=== PATIENT | female | born 1950 | race Caucasian/White ===

== ENCOUNTER 2017-03-20 14:31 | Inpatient (IN) | payer OTHER ==
[~2017-03-20] VITALS: Ht 152.4 cm; Wt 73.9 kg
[~2017-03-20 14:31] MED LIST: ADV25050 INH; ALBU2.5V3 NEB; ATOR20TA38 PO; FURO-110 PO; LEVO50TA74 PO; LOSA100T47 PO; MONT10TA21 PO; MTF1000T PO; OMEP20CA9 PO; [UNRECOGNIZED DRUG - CODE] PO
[2017-03-20] MEDS ORDERED: ASPIRIN 81 MG TAB PO STA (14:41)
[2017-03-20] MEDS ORDERED: NITROGLYCERIN 2% 1 GM OINT PKT TD STA (14:41)
[2017-03-20] MEDS ORDERED: morphine 4 MG/ML VIAL IV STA (14:50)
[2017-03-20] MEDS ORDERED: ONDANSETRON 4 MG INJ IV STA (14:50)
[2017-03-20] MEDS ORDERED: NITROGLYCERIN (SL) 0.4 MG TAB SL PRN (15:00)
--- NOTE | 2017-03-20 15:17 | RADRPT ---
PROCEDURE: Chest x-ray CLINICAL INDICATION: Cough TECHNIQUE: Chest single view COMPARISON: None FINDINGS: There is mild cardiomegaly and atherosclerotic aortic calcification. Pulmonary vessels are normal in caliber. There is linear right perihilar and left lower lobe atelectasis. No confluent pneumonia se en. There is mild peribronchial thickening. Costophrenic angles sharp. Bony thorax is unremarkable. IMPRESSION: 1. Mild cardiomegaly and an sclerotic aortic calcification. 2. Linear right perihilar and left lower lobe atelectasis. 3. Mild peribronchial thickening suggesting bronchiolitis.. 4. Slight nodular appearance the left hilum likely secondary to reactive adenopathy. Follow-up ches t x-ray is recommended RPTAT: HH .Rad Morrison MD, Date Time Electronically viewed and signed by .Rad Morrison MD, on 03/20/2017 15:17 .W/
[2017-03-20 15:22] LABS: BASOPHIL # 0.1 10^3/ul (0.0-0.1); BASOPHILS % 0.5 % (0.0-2.0); EOSINOPHILS # 0.1 10^3/ul (0.0-0.5); EOSINOPHILS % 1.4 % (0.0-7.0); HEMATOCRIT 41.4 % (37.0-47.0); HEMOGLOBIN 13.8 g/dl (12.0-16.0); LYMPHOCYTES # 2.2 10^3/ul (0.8-2.9); LYMPHOCYTES % 23.3 % (15.0-51.0); MEAN CORPUSCULAR HEMOGLOBIN 28.2 pg (29.0-33.0); MEAN CORPUSCULAR HGB CONC 33.3 g/dl (32.0-37.0); MEAN CORPUSCULAR VOLUME 84.7 fl (82.0-101.0); MEAN PLATELET VOLUME 11.1 fl (7.4-10.4); MONOCYTE # 0.6 10^3/ul (0.3-0.9); MONOCYTES % 6.4 % (0.0-11.0); NEUTROPHIL # 6.3 10^3/ul (1.6-7.5); NEUTROPHILS % 67.4 % (39.0-77.0); PLATELET COUNT 295 10^3/UL (140-415); RED BLOOD COUNT 4.89 10^6/ul (4.20-5.40); RED CELL DISTRIBUTION WIDTH 15.9 % (11.5-14.5); WHITE BLOOD COUNT 9.3 10^3/ul (4.8-10.8)
--- NOTE | 2017-03-20 15:37 | RADRPT ---
PROCEDURE: US Abdomen. CLINICAL INDICATION: abdominal pain TECHNIQUE: Multiple real-time images were acquired of the patient's right upper quadrant abdomen a nd retroperitoneum utilizing a high resolution transducer. COMPARISON: None FINDINGS: The liver demonstrates normal echogenicity. The liver is normal in size and no focal solid lesions are seen. The liver measures 14.4 cm in length. The portal vein is patent with normal direction of f low. No intrahepatic biliary dilatation is seen. No gallstones are identified within the gallbladder. There is no pericholecystic fluid or gallbladd er wall thickening. The common bile duct measures 5 mm in maximal dimension. The visualized portions of the pancreas are unremarkable. The tail of the pancreas is not seen. No free fluid is identified. The right kidney is normal in size, and demonstrate normal echogenicity and cortical thickness. The right kidney measures 9.5 cm in long dimension. There is no evidence of hydronephrosis. There are no kidney stones. RPTAT: AA IMPRESSION: Unremarkable right upper quadrant abdominal ultrasound. .Fidel Mary MD, Date Time Electronically viewed and signed by .Fidel Mary MD, MD on 03/20/2017 15:37 .S/
[2017-03-20 15:40] LABS: ANION GAP 14 (8-16); BLOOD UREA NITROGEN 17 mg/dl (7-20); CALCIUM 9.4 mg/dl (8.4-10.2); CARBON DIOXIDE 28 mmol/L (21-31); CHLORIDE 100 mmol/L (97-110); CREATININE 0.52 mg/dl (0.44-1.00); GLUCOSE 140 mg/dl (70-220); POTASSIUM 3.6 mmol/L (3.5-5.1); SODIUM 138 mmol/L (135-144)
[2017-03-20 15:52] LABS: TROPONIN-I < 0.012 ng/ml (0.00-0.12)
[2017-03-20 16:01] LABS: ALBUMIN 4.1 g/dl (3.3-4.9); BILIRUBIN,INDIRECT 0.4 mg/dl (0-1.1); BILIRUBIN,TOTAL 0.4 mg/dl (0.2-1.3); TOTAL PROTEIN 7.5 g/dl (6.1-8.1)
[2017-03-20] MEDS ORDERED: OMEP40CA6 PO (16:22)
[2017-03-20] MEDS ORDERED: ACETAMINOPHEN 325 MG TAB PO PRN (16:30)
[2017-03-20] MEDS ORDERED: ONDANSETRON 4 MG INJ IV PRN (16:30)
--- NOTE | 2017-03-20 16:43 | ERD ---
ER Documentation Chief Complaint Chief Complaint SOB cold like symptoms given 1 breathing tx by RA lungs clear at this time HPI Patient is a 58-year-old female with asthma, hypertension, and diabetes who presents with chest pain and shortness of breath. The cough has been there for about 2 weeks but the chest pain and shortness of breath started this morning. She had a heavy sensation in her left arm. She does use oxygen at home. He went to her primary doctor today who gave her breathing treatment and sent her to the emergency department. Upon review of old medical records this is the patient's first visit to the ER. ROS All systems reviewed and are negative except as per history of present illness. Medications Home Meds Reported Medications Omeprazole* (Omeprazole*) 40 Mg Capsule.dr, 40 MG PO DAILY, #30 CAP 03/20/17 Albuterol Sulfate* (Albuterol Sulfate* Neb) 0.083%-3 Ml Neb, 1.25 MG NEB Q3H Y for WHEEZING AND SOB, EA 08/18/14 Diltiazem Hcl* (Taztia XT*) 240 Mg Capsule.sa, 240 MG PO DAILY, CAP 08/18/14 Montelukast Sodium* (Singulair*) 10 Mg Tablet, 10 MG PO HS, TAB 08/18/14 Metformin* (Glucophage*) 1,000 Mg Tablet, 1000 MG PO WITH BREAKFAST DINNE, TAB 08/18/14 Losartan Potassium* (Cozaar*) 100 Mg Tablet, 100 MG PO DAILY, TAB 08/18/14 Levothyroxine Sodium* (Levothyroxine Sodium*) 50 Mcg Tablet, 50 MCG PO AC BREAKFAST, TAB 08/18/14 Furosemide* (Lasix*) 20 Mg Tablet, 20 MG PO DAILY, TAB 08/18/14 Salmeterol Xinaf/Fluticasone* (Advair*) 250-50 Diskus Inhaler, 1 INH INH BID, INH 08/18/14 Atorvastatin Calcium* (Atorvastatin Calcium*) 20 Mg Tablet, 20 MG PO HS, TAB 08/18/14 Discontinued Reported Medications Omeprazole* (Prilosec*) 20 Mg Capsule.dr, 20 MG PO DAILY, CAP 08/18/14 Allergies Allergies: Coded Allergies: Penicillins (Unverified Allergy, Unknown, rash, 03/20/17) amoxicillin (Unverified Allergy, Unknown, rash, 03/20/17) famotidine (Unverified Allergy, Unknown, rash, 03/20/17) PMhx/Soc History of Surgery: Yes (colon resection, hysterectomy, colostomy-reversal, rt lumpectomy breast) Anesthesia Reaction: No Hx Neurological Disorder: No Hx Respiratory Disorders: Yes (asthma) Hx Cardiac Disorders: Yes (irregular heartbeat, chf, "inflammation around the heart") Hx Psychiatric Problems: No Hx Miscellaneous Medical Probl: No Hx Alcohol Use: No Hx Substance Use: No Hx Tobacco Use: No FmHx Family History: coronary disease Physical Exam Vitals Vital Signs Date Time Temp Pulse Resp B/P Pulse Ox O2 Delivery O2 Flow Rate FiO2 03/20/17 16:22 Nasal Cannula 2 03/20/17 15:34 66 17 144/63 97 Nasal Cannula 2.0 03/20/17 14:40 97.5 78 20 221/89 99 Physical Exam Const: Mild distress Head: Atraumatic Eyes: Normal Conjunctiva ENT: Normal External Ears, Nose and Mouth. Neck: Full range of motion..~ No meningismus. Resp: Clear to auscultation bilaterally Cardio: Regular rate and rhythm, no murmurs Abd: Soft, non tender, non distended. Normal bowel sounds Skin: No petechiae or rashes Back: No midline or flank tenderness Ext: No cyanosis, or edema Neur: Awake and alert Psych: Normal Mood and Affect Result Diagram: 03/20/17 1441 03/20/17 1441 Results 24 hrs Laboratory Tests Test 03/20/17 14:41 White Blood Count 9.310^3/ul Red Blood Count 4.8910^6/ul Hemoglobin 13.8g/dl Hematocrit 41.4% Mean Corpuscular Volume 84.7fl Mean Corpuscular Hemoglobin 28.2pg Mean Corpuscular Hemoglobin Concent 33.3g/dl Red Cell Distribution Width 15.9% Platelet Count 35487^3/UL Mean Platelet Volume 11.1fl Neutrophils % 67.4% Lymphocytes % 23.3% Monocytes % 6.4% Eosinophils % 1.4% Basophils % 0.5% Nucleated Red Blood Cells % 0.0/100WBC Neutrophils # 6.310^3/ul Lymphocytes # 2.210^3/ul Monocytes # 0.610^3/ul Eosinophils # 0.110^3/ul Basophils # 0.110^3/ul Nucleated Red Blood Cells # 0.010^3/ul Sodium Level 138mmol/L Potassium Level 3.6mmol/L Chloride Level 100mmol/L Carbon Dioxide Level 28mmol/L Anion Gap 14 Blood Urea Nitrogen 17mg/dl Creatinine 0.52mg/dl Glucose Level 140mg/dl Calcium Level 9.4mg/dl Total Bilirubin 0.4mg/dl Direct Bilirubin 0.00mg/dl Indirect Bilirubin 0.4mg/dl Aspartate Amino Transf (AST/SGOT) 18IU/L Alanine Aminotransferase (ALT/SGPT) 34IU/L Alkaline Phosphatase 120IU/L Troponin I < 0.012ng/ml Total Protein 7.5g/dl Albumin 4.1g/dl Lipase 61U/L Current Medications Medications (Trade) Dose Ordered Sig/Cristobal Route PRN Reason Start Time Stop Time Status Last Admin Dose Admin Aspirin (Aspirin) 162 mg ONCE STAT PO 03/20/17 14:41 03/20/17 14:42 DC 03/20/17 15:29 Nitroglycerin (Nitroglycerin 2% Oint) 1 inch ONCE STAT TD 03/20/17 14:41 03/20/17 14:42 DC 03/20/17 15:30 Nitroglycerin (Nitroglycerin (Sl Tab) 0.4 Mg) 1 tab Q5M UP TO 3 DOSES PRN SL CHEST PAIN 03/20/17 15:00 Morphine Sulfate (morphine) 4 mg ONCE STAT IV 03/20/17 14:50 03/20/17 14:52 DC Ondansetron HCl (Zofran Inj) 4 mg ONCE STAT IV 03/20/17 14:50 03/20/17 14:52 DC Ondansetron HCl (Zofran Inj) 4 mg ER BRIDGE PRN IV NAUSEA AND/OR VOMITING 03/20/17 16:30 03/21/17 16:29 Acetaminophen (Tylenol Tab) 650 mg ER BRIDGE PRN PO MILD PAIN/FEVER 03/20/17 16:30 03/21/17 16:29 Procedures/MDM EKG read by me: Rate/Rhythm: Regular rate and rhythm at a normal rate Intervals: Normal Impression: No evidence of ischemia or arrhythmia Chest x-ray shows no pneumonia or pneumothorax per radiology. Ultrasound shows no gallbladder disease per radiology. Patient is a 66-year-old female with cardiac risk factors who presents with chest pain shortness of breath. I am concerned for potential acute coronary syndrome. I doubt pneumonia, pneumothorax, pulmonary embolism, or aortic dissection. The patient will be admitted to the care of Dr. Lin as she has [facility] physicians IPA and he is admitting for that IPA. The patient can get further workup while admitted to the telemetry unit. The patient was given aspirin and nitroglycerin as well as morphine empirically. Departure Diagnosis: Primary Impression: Chest pain Chest pain type: unspecified Qualified Code: R07.9 - Chest pain, unspecified type Additional Impression: Shortness of breath Condition: JEREMIAS Strong MD Mar 20, 2017 16:43
[2017-03-20 17:24] VITALS: TEMP 98.2
[2017-03-20 17:43] VITALS: PULSE 68
[2017-03-20 18:01] VITALS: BP 187/79; RESP 18
[2017-03-20] MEDS ORDERED: GLUCAGON 1 MG INJ IM PRN (19:30)
[2017-03-20] MEDS ORDERED: GLUCOSE GEL 15 GRAM TUBE PO PRN ×2 (19:30)
[2017-03-20] MEDS ORDERED: DEXTROSE 50% 50 ML SYRINGE IV PRN ×2 (19:30)
[2017-03-20] MEDS ORDERED: GLUCOSE GEL 15 GRAM TUBE BUCCAL PRN (19:30)
[2017-03-20 20:00] VITALS: BP 182/88; RESP 20
[2017-03-20 20:38] VITALS: PULSE 64
[2017-03-20 21:29] LABS: CREATINE KINASE 30 IU/L (23-200)
[2017-03-20] MEDS: ATORVASTATIN 20 MG TAB PO SCH (21:35)
[2017-03-20] MEDS: SALMETEROL/FLUTICASONE 250/50 INHA INH SCH (21:35)
[2017-03-20] MEDS: MONTELUKAST 10 MG TAB PO SCH (21:35)
[2017-03-20 21:53] LABS: TROPONIN-I < 0.012 ng/ml (0.00-0.12)
[2017-03-20 21:54] LABS: CK-MB 0.34 ng/ml (0.0-2.4)
[2017-03-20] MEDS: INSULIN ASPART [NOVOLOG] 3 ML PEN SC SCH (23:06)
[2017-03-21] VITALS (14 sets, daily range): BP systolic 123–187; BP diastolic 64–92; PULSE 63–73; RESP 20–22
[2017-03-21] MEDS: hydrALAzine 20 MG INJ IV PRN (00:48)
[2017-03-21] MEDS: ALBUTEROL 0.083% (NEB) 2.5 MG/3 ML AMP NEB PRN ×2 (01:05→13:54)
[2017-03-21] MEDS: ACCU-CHEK XX SCH (02:35)
[2017-03-21 03:36] LABS: BASOPHILS % 0.5 % (0.0-2.0); EOSINOPHILS # 0.1 10^3/ul (0.0-0.5); EOSINOPHILS % 1.3 % (0.0-7.0); HEMATOCRIT 36.2 % (37.0-47.0); HEMOGLOBIN 12.1 g/dl (12.0-16.0); LYMPHOCYTES # 1.3 10^3/ul (0.8-2.9); MEAN CORPUSCULAR HEMOGLOBIN 28.3 pg (29.0-33.0); MEAN CORPUSCULAR HGB CONC 33.4 g/dl (32.0-37.0); MEAN CORPUSCULAR VOLUME 84.8 fl (82.0-101.0); MONOCYTE # 0.5 10^3/ul (0.3-0.9); MONOCYTES % 6.8 % (0.0-11.0); NEUTROPHIL # 5.8 10^3/ul (1.6-7.5); NEUTROPHILS % 73.8 % (39.0-77.0); PLATELET COUNT 272 10^3/UL (140-415); RED BLOOD COUNT 4.27 10^6/ul (4.20-5.40); RED CELL DISTRIBUTION WIDTH 15.9 % (11.5-14.5); WHITE BLOOD COUNT 7.8 10^3/ul (4.8-10.8)
[2017-03-21 04:08] LABS: CALCIUM 8.9 mg/dl (8.4-10.2); CREATININE 0.5 mg/dl (0.44-1.00)
[2017-03-21 04:11] LABS: INR 0.85; PROTIME 11.7 Sec (11.9-14.9); PT RATIO 0.9
[2017-03-21 04:12] LABS: PARTIAL THROMBOPLASTIN TIME 25.8 Sec (25.0-35.0)
[2017-03-21 04:20] LABS: CK-MB 0.26 ng/ml (0.0-2.4)
[2017-03-21 04:23] LABS: TROPONIN-I < 0.012 ng/ml (0.00-0.12)
[2017-03-21 04:43] LABS: CREATINE KINASE 22 IU/L (23-200)
[2017-03-21 05:43] LABS: THYROID STIMULATING HORMONE 1.07 MIU/L (0.465-4.680)
[2017-03-21] MEDS: SALMETEROL/FLUTICASONE 250/50 INHA INH SCH ×2 (08:04→22:50)
[2017-03-21] MEDS: LEVOTHYROXINE 50 MCG TAB PO SCH (08:04)
[2017-03-21] MEDS: INSULIN ASPART [NOVOLOG] 3 ML PEN SC SCH ×4 (08:17→22:53)
[2017-03-21] MEDS: FUROSEMIDE 20 MG TAB PO SCH (08:19)
[2017-03-21] MEDS: DILTIAZEM (CD) 240 MG CAP PO SCH (08:19)
[2017-03-21] MEDS: LOSARTAN 50 MG TAB PO SCH (08:20)
[2017-03-21] MEDS: ENOXAPARIN 40 MG/0.4 ML SYG SC SCH (08:31)
--- NOTE | 2017-03-21 13:55 | CONS ---
DATE OF ADMISSION: 03/20/2017 DATE OF CONSULTATION: 03/21/2017 REASON FOR CONSULTATION: Chest pain, assess for acute coronary syndrome. REQUESTING PHYSICIAN: Claudia Lin MD. HISTORY OF PRESENT ILLNESS: Ms. Valenzuela is a very pleasant 66-year-old female with history of asthma, hypertension, diabetes mellitus, initially presented with complaints of substernal chest pain assoc iated with shortness of breath. The patient states symptoms have been ongoing for multiple weeks. The patient describes her chest pain as a pressure-like sensation, occurring at rest, not necessaril y related to exertional activities. The patient additionally has had a cough and nasal congestion. The patient has home O2. Upon arrival in the emergency department, temperature of 97.5, blood pres sure markedly elevated at 221/89, pulse 78, respiratory rate 20, saturating 99%. The patient's labs revealed white count 9.3, hemoglobin 13.8, platelet count 295. Sodium of 138, potassium 3.6, creat inine 0.5, BUN 17. Troponin negative. INR 0.85. Patient underwent a chest x-ray revealing mild ca rdiomegaly and sclerotic aortic calcification, linear right perihilar and lower lobe atelectasis, mi ld peribronchial thickening suggesting a bronchiolitis, slight to the left hilum likely second heena to adenopathy. The patient additionally underwent a gallbladder ultrasound revealing an unremar kable right upper quadrant abdominal ultrasound. The patient's electrocardiogram revealed normal si nus rhythm, rate of 72, normal axis, normal intervals with isolated T-wave flattening in aVL. The p ervin was subsequently admitted to the floor and since admit to the floor, has had 2 further tropon ins negative, ruling out for acute myocardial infarction. The patient at this time continues to hav e chest pain and shortness of breath. PAST MEDICAL HISTORY: As above in HPI. MEDICATIONS CURRENTLY IN HOSPITAL: 1. Diltiazem CD 240 mg daily. 2. Lasix 20 mg daily. 3. Cozaar 100 mg daily. 4. Lovenox 40 mg subcutaneous daily. 5. Synthroid 50 mcg daily. 6. Insulin sliding scale. 7. Lipitor 20 mg at bedtime. 8. Singulair 10 mg at bedtime. 9. Advair Diskus 1 inhaled b.i.d. 10. Carvedilol 3.125 mg p.o. b.i.d. 11. Albuterol p.r.n. 12. Hydralazine p.r.n. 13. Zofran p.r.n. 14. Tylenol p.r.n. 15. Sublingual nitroglycerin p.r.n. ALLERGIES 1. PENICILLIN. 2. AMOXICILLIN. 3. PEPCID. SOCIAL HISTORY: No tobacco, ETOH or illicit drug use. FAMILY HISTORY: No history of sudden cardiac or early CAD. REVIEW OF SYSTEMS: As above in HPI. CONSTITUTIONAL: No fevers, chills. PULMONARY: Shortness of breath, cough. GASTROINTESTINAL: No vomiting. GENITOURINARY: No hematuria. MUSCULOSKELETAL: Degenerative joint disease. PSYCHIATRIC: The patient denies depression. NEUROLOGIC: No documented history of CVA. ENDOCRINE: Diabetes mellitus. PHYSICAL EXAMINATION: VITAL SIGNS: Temperature of 98.6, blood pressure most recently 133/64, pulse 62, respiratory 20, sa turating 96%. GENERAL: The patient is alert, awake, complaining of shortness of breath and chest pain. NECK: JVP approximately 9 cm of water. CHEST: Expiratory wheezes, decreased air movement throughout. HEART: Regular rate and rhythm. Normal S1, increased S2, I/ systolic murmur, nondisplaced PMI. ABDOMEN: Positive bowel sounds, soft. EXTREMITIES: No pitting edema, trace edema with chronic venous stasis changes, 1+ pulses bilaterall y posterior tibial. LABORATORY DATA: Most recent from today, sodium 138, potassium 4.0, creatinine 0.5, BUN 17, hemoglo bin A1c is 7.7. TSH 1.070. Troponin negative x3. White blood count 7.8, hemoglobin 12.1, platelet count 272. INR 0.85. IMAGING STUDIES: As above in HPI. No further imaging studies for my review at this time. ECG: As above in HPI. No further electrocardiograms for my review at this time. IMPRESSION: 1. Chest pain, assess for acute coronary syndrome with negative troponins x3 at this time, multiple cardiac risk factors. 2. Abnormal electrocardiogram with T-wave flattening isolated to lead aVL. 3. Hypertension, labile, but most recently under reasonable control. 4. History of dyslipidemia. 5. Diabetes mellitus. 6. Probable upper respiratory infection, question bronchitis. 7. History of hypothyroidism. 8. History of asthma, question chronic obstructive pulmonary disease. RECOMMENDATIONS: 1. At this time, would maintain the patient on telemetry monitoring to follow rhythm and rate close ly. 2. Check serial EKGs to assess for significant ongoing changes. EKG in the morning, EKG for any co mplaints of chest pain or change in rhythm. 3. Would follow the patient's 2D echo done for assessment of ejection fraction, wall motion, rule o ut any major valve abnormalities. 4. Would change the patient's carvedilol to a beta 1 selected beta quin, so as not to induce any further bronchospasm in the setting of active wheezing. 5. Continue the patient's bronchodilators. 6. Check a fasting lipid panel for general risk stratification and adjust the patient's lipid-lower ing medication as necessary. 7. Continue the patient's daily Lasix, following volume status closely and would consider Lexiscan stress testing this patient to further assess possibility of significant obstructive coronary artery disease lending to his symptoms of chest pain and subsequent admit to the hospital. Thank you for allowing me to take part in the care of this patient. I will continue to follow very closely with you with further recommendations to be made as the patient progresses through her [facility] clinical course. Dictated By: JUSTIN MANUEL/ANNEMARIE Conf#: [id number] DID#: [id number] CC: CLAUDIA LIN MD;*EndCC*
--- NOTE | 2017-03-21 15:06 | RADRPT ---
Echocardiogram Report Patient Name: NORM GILBERT Gender: Female Date: 1950 Study Date: 21-Mar-2017 Meteorology Teacher: Valeriano Junior SERGEY Location: 506 Ref. Physician: NEFTALI MARTINEZ Quality: Good Procedures: Transthoracic echocardiogram with complete 2D, M-Mode, and doppler examination. Indications: Chest Pain. 2D/M Mode Doppler Measurement Value Normal Ranges Measurement Value Normal Ranges LVIDd 2D 3.6 3.5 - 5.6 cm MARYCARMEN Vmax 2.0 cm2 LVIDs 2D 2.3 2.1 - 4.1 cm MARYCARMEN VTI 2.0 cm2 LVPWd 2D 1.1 0.6 - 1.1 cm AV Mean Shar 1.5 m/sec IVSd 2D 1.1 0.6 - 1.1 cm AV Mean PG 10.8 mmHg AoR Diam 2D 2.6 2.0 - 3.7 cm AV Peak Shar 2.3 m/sec EDV 2D 54.7 cm3 AV Peak PG 20.6 mmHg ESV 2D 12.1 cm3 AV VTI 47.4 cm LA Dimen 2D 3.6 2.3 - 4.0 cm LVOT Mean Shar 0.9 m/sec LVOT Diam 2.1 cm LVOT Mean PG 3.9 mmHg LVOT Peak Shar 1.3 m/sec LVOT Peak PG 6.9 mmHg LVOT VTI 33.2 cm MV E Peak Shar 0.5 m/sec MV A Peak Shar 1.3 m/sec MV E/A 0.4 MV Decel Time 316 msec MV Decel Pope 2 MV E/A 0.4 TR Peak Shar 2.8 m/sec TR Peak PG 32.4 mmHg RVSP 40.0 mmHg Findings Left Ventricle: Normal left ventricular systolic function. Normal left ventricular cavity size. Mild concentric left ventricular hypertrophy. Ejection fraction is visually estimated at 60 %. Tissue Doppler/Mitral Doppler indices are consistent with impaired relaxation (Stage I diastolic dysfunction). Right Ventricle: Normal right ventricular size. Normal right ventricular systolic function. Left Atrium: The left atrium is normal in size. Right Atrium: The right atrium is normal in size. Mitral Valve: Mitral valve leaflets appear mildly thickened. Mild mitral annular calcification. Trace mitral regurgitation. Aortic Valve: Mild aortic stenosis. Aortic valve Max velocity 2.27 m/sec. Max PG 20.60 mmHg. Mean PG 10.80 mmHg. Trace aortic valve regurgitation. Tricuspid Valve: Normal appearance of the tricuspid valve. Estimated peak PA systolic pressure 40 mmHg. There is mild tricuspid regurgitation. Pulmonic Valve: Normal pulmonic valve appearance. Pericardium: small to moderate pericardial effusion. Aorta: Normal aortic root. IVC: Dilated IVC with respiratory collapse consistent with elevated right atrial pressure. Conclusions 1.Normal left ventricular systolic function. Normal left ventricular cavity size. Mild concentric left ventricular hypertrophy. Ejection fraction is visually estimated at 60 %. Tissue Doppler/Mitral Doppler indices are consistent with impaired relaxation (Stage I diastolic dysfunction). 2.Mitral valve leaflets appear mildly thickened. Mild mitral annular calcification. Trace mitral regurgitation. 3.Mild aortic stenosis. Mean PG 10.80 mmHg. Trace aortic valve regurgitation. 4.Normal appearance of the tricuspid valve. Estimated peak PA systolic pressure 40 mmHg. There is mild tricuspid regurgitation. Electronically Signed By: Chema Moreno 21-Mar-2017 15:06:10 -0800 Patient Name: NORM GILBERT Study Date: 21-Mar-2017 [id number]
--- NOTE | 2017-03-21 15:49 | PN ---
Date/Time of Note Date/Time of Note DATE: 03/21/17 TIME: 15:42 Assessment/Plan VTE Prophylaxis VTE Prophylaxis Intervention: LMWH Lines/Catheters IV [facility] Saline [facility] Assessment/Plan Chief Complaint/Hosp Course Patient complains of cough and occasional shortness of breath, denies any chest pain. Problems: Assessment/Plan - Chest pain, rule out acute coronary syndrome. Troponin is negative 3. Dr. Moreno is called following in cardiology consultation. - Hypertension. - Diabetes mellitus with hemoglobin A1c 7.7. -Hypothyroidism, TSH is within normal limits, continue Synthroid. - History of dyslipidemia. - History of asthma, question chronic obstructive pulmonary disease. - Possible bronchitis Further recommendations based on clinical course. Plan of care discussed with Dr. Lin. Exam/Review of Systems Vital Signs Vitals Vital Signs Date Time Temp Pulse Resp B/P Pulse Ox O2 Delivery O2 Flow Rate FiO2 03/21/17 13:54 70 20 96 Nasal Cannula 2.0 03/21/17 11:36 98.6 133/64 Intake and Output 03/20/17 03/20/17 03/21/17 15:00 23:00 07:00 Intake Total 440 ml Balance 440 ml Exam Constitutional: alert, oriented Head: normocephalic Neck: supple Respiratory: clear to auscultation Cardiovascular: nl pulses, regular rate and rhythm Gastrointestinal: non-tender, soft Extremities: normal pulses Results Result Diagram: 03/21/17 0307 03/21/17 0307 Results 24 hrs Laboratory Tests Test 03/20/17 19:44 03/20/17 21:00 03/20/17 22:55 03/21/17 02:35 Troponin I < 0.012 < 0.012 Creatine Kinase 30 Creatine Kinase Index 1.1 Creatinine Kinase MB (Mass) 0.34 Bedside Glucose 187 148 Test 03/21/17 03:07 03/21/17 08:00 03/21/17 11:56 White Blood Count 7.8 Red Blood Count 4.27 Hemoglobin 12.1 Hematocrit 36.2 L Mean Corpuscular Volume 84.8 Mean Corpuscular Hemoglobin 28.3 L Mean Corpuscular Hemoglobin Concent 33.4 Red Cell Distribution Width 15.9 H Platelet Count 272 Mean Platelet Volume 11.0 H Neutrophils % 73.8 Lymphocytes % 17.0 Monocytes % 6.8 Eosinophils % 1.3 Basophils % 0.5 Nucleated Red Blood Cells % 0.0 Neutrophils # 5.8 Lymphocytes # 1.3 Monocytes # 0.5 Eosinophils # 0.1 Basophils # 0.0 Nucleated Red Blood Cells # 0.0 Prothrombin Time 11.7 L Prothrombin Time Ratio 0.9 INR International Normalized Ratio 0.85 Activated Partial Thromboplast Time 25.8 Sodium Level 138 Potassium Level 4.0 Chloride Level 103 Carbon Dioxide Level 30 Anion Gap 9 # Blood Urea Nitrogen 18 Creatinine 0.50 Glucose Level 155 Hemoglobin A1c 7.7 H Calcium Level 8.9 Creatine Kinase 22 L Creatine Kinase Index 1.2 Creatinine Kinase MB (Mass) 0.26 Troponin I < 0.012 Thyroid Stimulating Hormone (TSH) 1.070 Bedside Glucose 149 160 Medications Medications Current Medications Diagnostic Test (Pha) (Accu-Chek) 1 ea 02 XX Last administered on 03/21/17 02: 35; Admin Dose 1 EA; Start 03/21/17 at 02:00 Atorvastatin Calcium (Lipitor) 20 mg HS PO Last administered on 03/20/17 21:35 ; Admin Dose 20 MG; Start 03/20/17 at 21:00 Diltiazem HCl (Cardizem Cd) 240 mg DAILY PO Last administered on 03/21/17 08: 19; Admin Dose 240 MG; Start 03/21/17 at 09:00 Furosemide (Lasix) 20 mg DAILY PO Last administered on 03/21/17 08:19; Admin Dose 20 MG; Start 03/21/17 at 09:00 Losartan Potassium (Cozaar) 100 mg DAILY PO Last administered on 03/21/17 08: 20; Admin Dose 100 MG; Start 03/21/17 at 09:00 Montelukast Sodium (Singulair) 10 mg HS PO Last administered on 03/20/17 21:35 ; Admin Dose 10 MG; Start 03/20/17 at 21:00 Salmeterol Xinafoate/ Fluticasone (Advair 250/50 Diskus) 1 inh BID INH Last administered on 03/21/17 08:04; Admin Dose 1 INH; Start 03/20/17 at 21:00 Miscellaneous Information 1 ea NOTE XX ; Start 03/20/17 at 19:30 Glucose (Glutose) 15 gm Q15M PRN PO DECREASED GLUCOSE; Start 03/20/17 at 19:30 Glucose (Glutose) 22.5 gm Q15M PRN PO DECREASED GLUCOSE; Start 03/20/17 at 19: 30 Dextrose (D50w Syringe) 25 ml Q15M PRN IV DECREASED GLUCOSE; Start 03/20/17 at 19:30 Dextrose (D50w Syringe) 50 ml Q15M PRN IV DECREASED GLUCOSE; Start 03/20/17 at 19:30 Glucagon (Glucagen) 1 mg Q15M PRN IM DECREASED GLUCOSE; Start 03/20/17 at 19:30 Glucose (Glutose) 15 gm Q15M PRN BUCCAL DECREASED GLUCOSE; Start 03/20/17 at 19 :30 Enoxaparin Sodium (Lovenox) 40 mg DAILY SC Last administered on 03/21/17 08:31 ; Admin Dose 40 MG; Start 03/21/17 at 09:00 Hydralazine HCl (Apresoline) 10 mg Q6H PRN IV ELEVATED BLOOD PRESSURE Last administered on 03/21/17 00:48; Admin Dose 10 MG; Start 03/20/17 at 19:30 Metoprolol Tartrate (Lopressor) 25 mg BID PO ; Start 03/21/17 at 21:00 ANA MARIA JOSHI Mar 21, 2017 15:49
[2017-03-21] MEDS ORDERED: LEVALBUTEROL (NEB) 0.63 MG/3 ML AMP HHN PRN (16:00)
[2017-03-21] MEDS: LEVALBUTEROL (NEB) 0.63 MG/3 ML AMP HHN SCH (20:26)
[2017-03-21] MEDS: MONTELUKAST 10 MG TAB PO SCH (22:49)
[2017-03-21] MEDS: METOPROLOL 25 MG TAB PO SCH (22:49)
[2017-03-21] MEDS: ATORVASTATIN 20 MG TAB PO SCH (22:49)
[2017-03-22] VITALS (14 sets, daily range): BP systolic 114–174; BP diastolic 54–96; PULSE 59–80; RESP 16–20
[2017-03-22] MEDS: LEVALBUTEROL (NEB) 0.63 MG/3 ML AMP HHN SCH ×4 (01:12→20:43)
[2017-03-22] MEDS: ACCU-CHEK XX SCH (02:00)
--- NOTE | 2017-03-22 02:34 | HP ---
Date/Time of Note Date/Time of Note DATE: 03/22/17 TIME: 01:50 Assessment/Plan VTE Prophylaxis VTE Prophylaxis Intervention: LMWH Lines/Catheters IV Catheter Type (from Nrsg): Saline Lock Assessment/Plan Assessment/Plan -Chest pain - admit on tele - o2 as needed - cardiology consult- Dr Moreno notified - cardiac diet - 2 D echo- fu - am labs - resume home meds - possible bronchitis-- Shortness of breath= none at present -resume home meds - breathing treatments - Hypertension - Hydralazine 10 mg IVP FOR SBP>160 - History of asthma, question chronic obstructive pulmonary disease. - History of dyslipidemia. -- on Atorvastatin - CHD panel am - Diabetes Mellitus - Glycemic control - Mild Algorithm- Nolog insulin - Hb AIC am - Hypothyroidism - on Synthroid - TSH lab am - Hx CHF - Irregular Heart Beat- stated by patient - Multi Drug Allergies - Penicillins- rash - amoxicillin -rash - famotidin- rash - Lovenox for DVT prophylaxis -Plan of care dw Dr Lin.family/ staff HPI/ROS Admit Date/Time Admit Date/Time Mar 20, 2017 at 16:24 ROS HPI Patient is a 58-year-old female with asthma, hypertension, and diabetes is admitted with c/o chest pain and shortness of breath x 1 day, cough for about 2 weeks, Per patient she had heavy sensation in her left arm. She does use oxygen at home. Patient was sent to ER d/t shortness of breath , Family at bed side- all Qs answered. During assessment, patien c/o chest pain but denies any shortness of breath. Patient denies any fever, chills, headache, plitations, focal weakness. absominal pain, N/V/D/C. Denies any fall/injury, recent travel. Plan of care dw family/staff ROS All systems reviewed and are negative except as per history of present illness. Allergies Allergies: Coded Allergies: Penicillins (Unverified Allergy, Unknown, rash, 03/20/17) amoxicillin (Unverified Allergy, Unknown, rash, 03/20/17) famotidine (Unverified Allergy, Unknown, rash, 03/20/17) PMH/Family/Social Past Medical History PMhx/Soc History of Surgery: Yes (colon resection, hysterectomy, colostomy-reversal, rt lumpectomy breast) Anesthesia Reaction: No Hx Neurological Disorder: No Hx Respiratory Disorders: Yes (asthma) Hx Cardiac Disorders: Yes (irregular heartbeat, chf, "inflammation around the heart") Hx Psychiatric Problems: No Hx Miscellaneous Medical Probl: No Hx Alcohol Use: No Hx Substance Use: No Hx Tobacco Use: No FmHx Family History: coronary disease Social History Smoking Status: Never smoker Exam/Review of Systems Vital Signs Vitals Vital Signs Date Time Temp Pulse Resp B/P Pulse Ox O2 Delivery O2 Flow Rate FiO2 03/22/17 01:12 58 20 98 Nasal Cannula 2.0 28 03/22/17 00:00 98.7 120/59 Intake and Output 03/21/17 03/21/17 03/22/17 15:00 23:00 07:00 Intake Total 900 ml Balance 900 ml Exam Constitutional: alert, oriented, well developed Respiratory: diminished breath sounds, normal air movement Cardiovascular: nl pulses, other (s1s2) Gastrointestinal: non-tender, soft Musculoskeletal: nl extremities to inspection Extremities: normal pulses Neurological: nl mental status, nl speech Labs Result Diagram: 03/21/17 0307 03/21/17 0307 Medications Medications Current Medications Diagnostic Test (Pha) (Accu-Chek) 1 ea 02 XX Last administered on 03/21/17 02: 35; Admin Dose 1 EA; Start 03/21/17 at 02:00 Atorvastatin Calcium (Lipitor) 20 mg HS PO Last administered on 03/21/17 22:49 ; Admin Dose 20 MG; Start 03/20/17 at 21:00 Diltiazem HCl (Cardizem Cd) 240 mg DAILY PO Last administered on 03/21/17 08: 19; Admin Dose 240 MG; Start 03/21/17 at 09:00 Furosemide (Lasix) 20 mg DAILY PO Last administered on 03/21/17 08:19; Admin Dose 20 MG; Start 03/21/17 at 09:00 Losartan Potassium (Cozaar) 100 mg DAILY PO Last administered on 03/21/17 08: 20; Admin Dose 100 MG; Start 03/21/17 at 09:00 Montelukast Sodium (Singulair) 10 mg HS PO Last administered on 03/21/17 22:49 ; Admin Dose 10 MG; Start 03/20/17 at 21:00 Salmeterol Xinafoate/ Fluticasone (Advair 250/50 Diskus) 1 inh BID INH Last administered on 03/21/17 22:50; Admin Dose 1 INH; Start 03/20/17 at 21:00 Miscellaneous Information 1 ea NOTE XX ; Start 03/20/17 at 19:30 Glucose (Glutose) 15 gm Q15M PRN PO DECREASED GLUCOSE; Start 03/20/17 at 19:30 Glucose (Glutose) 22.5 gm Q15M PRN PO DECREASED GLUCOSE; Start 03/20/17 at 19: 30 Dextrose (D50w Syringe) 25 ml Q15M PRN IV DECREASED GLUCOSE; Start 03/20/17 at 19:30 Dextrose (D50w Syringe) 50 ml Q15M PRN IV DECREASED GLUCOSE; Start 03/20/17 at 19:30 Glucagon (Glucagen) 1 mg Q15M PRN IM DECREASED GLUCOSE; Start 03/20/17 at 19:30 Glucose (Glutose) 15 gm Q15M PRN BUCCAL DECREASED GLUCOSE; Start 03/20/17 at 19 :30 Enoxaparin Sodium (Lovenox) 40 mg DAILY SC Last administered on 03/21/17 08:31 ; Admin Dose 40 MG; Start 03/21/17 at 09:00 Hydralazine HCl (Apresoline) 10 mg Q6H PRN IV ELEVATED BLOOD PRESSURE Last administered on 03/21/17 00:48; Admin Dose 10 MG; Start 03/20/17 at 19:30 Metoprolol Tartrate (Lopressor) 25 mg BID PO Last administered on 03/21/17 22: 49; Admin Dose 25 MG; Start 03/21/17 at 21:00 Levofloxacin (Levaquin) 500 mg DAILY@06 PO ; Start 03/22/17 at 06:00 Procedures Procedures EKG Rate/Rhythm: Regular rate and rhythm at a normal rate Intervals: Normal Impression: No evidence of ischemia or arrhythmia Ultrasound shows no gallbladder disease per radiology. Chest x-ray CLINICAL INDICATION: Cough IMPRESSION: 1. Mild cardiomegaly and an sclerotic aortic calcification. 2. Linear right perihilar and left lower lobe atelectasis 3. Mild peribronchial thickening suggesting bronchiolitis.. 4. Slight nodular appearance the left hilum likely secondary to reactive adenopathy. Follow-up chest x-ray is recommended NEFTALI MARTINEZ Mar 22, 2017 02:01
[2017-03-22] MEDS: LEVOFLOXACIN 500 MG TAB PO SCH (06:12)
[2017-03-22] MEDS: hydrALAzine 20 MG INJ IV PRN ×2 (06:50→11:59)
[2017-03-22 07:35] LABS: BASOPHILS % 0.5 % (0.0-2.0); EOSINOPHILS # 0.1 10^3/ul (0.0-0.5); EOSINOPHILS % 1.8 % (0.0-7.0); HEMOGLOBIN 12.3 g/dl (12.0-16.0); LYMPHOCYTES # 1.4 10^3/ul (0.8-2.9); LYMPHOCYTES % 18.9 % (15.0-51.0); MEAN CORPUSCULAR HEMOGLOBIN 28.6 pg (29.0-33.0); MEAN CORPUSCULAR HGB CONC 33.2 g/dl (32.0-37.0); MEAN PLATELET VOLUME 11.1 fl (7.4-10.4); MONOCYTE # 0.5 10^3/ul (0.3-0.9); MONOCYTES % 7.3 % (0.0-11.0); NEUTROPHIL # 5.2 10^3/ul (1.6-7.5); NEUTROPHILS % 70.8 % (39.0-77.0); PLATELET COUNT 261 10^3/UL (140-415); RED CELL DISTRIBUTION WIDTH 16.5 % (11.5-14.5); WHITE BLOOD COUNT 7.4 10^3/ul (4.8-10.8)
[2017-03-22] MEDS: INSULIN ASPART [NOVOLOG] 3 ML PEN SC SCH ×4 (07:55→21:00)
[2017-03-22 08:06] LABS: CALCIUM 9.1 mg/dl (8.4-10.2); CREATININE 0.49 mg/dl (0.44-1.00); POTASSIUM 4.1 mmol/L (3.5-5.1)
[2017-03-22 08:08] LABS: CHOL/HDL RATIO 2.6 RATIO
[2017-03-22] MEDS: LEVOTHYROXINE 50 MCG TAB PO SCH (08:34)
[2017-03-22] MEDS: SALMETEROL/FLUTICASONE 250/50 INHA INH SCH ×2 (08:34→21:15)
[2017-03-22] MEDS: DILTIAZEM (CD) 240 MG CAP PO SCH (08:35)
[2017-03-22] MEDS: LOSARTAN 50 MG TAB PO SCH (08:36)
[2017-03-22] MEDS: FUROSEMIDE 20 MG TAB PO SCH (08:36)
[2017-03-22] MEDS: METOPROLOL 25 MG TAB PO SCH ×2 (08:37→21:15)
[2017-03-22] MEDS: ENOXAPARIN 40 MG/0.4 ML SYG SC SCH (08:39)
[2017-03-22] MEDS ORDERED: REGADENOSON 0.4 MG/5 ML SYG ONE (09:44)
--- NOTE | 2017-03-22 11:05 | PN ---
Date/Time of Note Date/Time of Note DATE: 03/22/17 TIME: 11:04 Assessment/Plan VTE Prophylaxis VTE Prophylaxis Intervention: other Lines/Catheters IV C[facility] Type (from [facility] Saline Lock Assessment/Plan Chief Complaint/Hosp Course - Chest pain, rule out acute coronary syndrome. Troponin is negative 3. Dr. Moreno is called following in cardiology consultation. - Hypertension. - Diabetes mellitus with hemoglobin A1c 7.7. -Hypothyroidism, TSH is within normal limits, continue Synthroid. - History of dyslipidemia. - History of asthma, question chronic obstructive pulmonary disease. - Possible bronchitis Problems: Subjective 24 Hr Interval Summary Free Text/Dictation Patient is not in room so unable to interview Exam/Review of Systems Vital Signs Vitals Vital Signs Date Time Temp Pulse Resp B/P Pulse Ox O2 Delivery O2 Flow Rate FiO2 03/22/17 08:22 78 03/22/17 08:06 97.8 17 166/74 95 03/22/17 07:56 2.0 03/22/17 07:56 Nasal Cannula 03/22/17 01:12 28 Intake and Output 03/21/17 03/21/17 03/22/17 15:00 23:00 07:00 Intake Total 900 ml 440 ml Balance 900 ml 440 ml Exam Constitutional: well developed Head: atraumatic, normocephalic Neck: supple Respiratory: diminished breath sounds Cardiovascular: regular rate and rhythm Gastrointestinal: non-tender, soft Extremities: normal pulses Results Result Diagram: 03/22/17 0650 03/22/17 0650 Results 24 hrs Laboratory Tests Test 03/21/17 11:56 03/21/17 16:55 03/21/17 22:54 03/22/17 06:50 Bedside Glucose 160 126 180 White Blood Count 7.4 Red Blood Count 4.30 Hemoglobin 12.3 Hematocrit 37.0 Mean Corpuscular Volume 86.0 Mean Corpuscular Hemoglobin 28.6 L Mean Corpuscular Hemoglobin Concent 33.2 Red Cell Distribution Width 16.5 H Platelet Count 261 Mean Platelet Volume 11.1 H Neutrophils % 70.8 Lymphocytes % 18.9 Monocytes % 7.3 Eosinophils % 1.8 Basophils % 0.5 Nucleated Red Blood Cells % 0.0 Neutrophils # 5.2 Lymphocytes # 1.4 Monocytes # 0.5 Eosinophils # 0.1 Basophils # 0.0 Nucleated Red Blood Cells # 0.0 Sodium Level 139 Potassium Level 4.1 Chloride Level 103 Carbon Dioxide Level 30 Anion Gap 10 Blood Urea Nitrogen 22 H Creatinine 0.49 Glucose Level 158 Calcium Level 9.1 Triglycerides Level 67 Cholesterol Level 173 LDL Cholesterol, Calculated 95 HDL Cholesterol 65 Cholesterol/HDL Ratio 2.6 Test 03/22/17 08:33 Bedside Glucose 152 Medications Medications Current Medications Diagnostic Test (Pha) (Accu-Chek) 1 ea 02 XX Last administered on 03/21/17 02: 35; Admin Dose 1 EA; Start 03/21/17 at 02:00 Atorvastatin Calcium (Lipitor) 20 mg HS PO Last administered on 03/21/17 22:49 ; Admin Dose 20 MG; Start 03/20/17 at 21:00 Diltiazem HCl (Cardizem Cd) 240 mg DAILY PO Last administered on 03/22/17 08: 35; Admin Dose 240 MG; Start 03/21/17 at 09:00 Furosemide (Lasix) 20 mg DAILY PO Last administered on 03/22/17 08:36; Admin Dose 20 MG; Start 03/21/17 at 09:00 Losartan Potassium (Cozaar) 100 mg DAILY PO Last administered on 03/22/17 08: 36; Admin Dose 100 MG; Start 03/21/17 at 09:00 Montelukast Sodium (Singulair) 10 mg HS PO Last administered on 03/21/17 22:49 ; Admin Dose 10 MG; Start 03/20/17 at 21:00 Salmeterol Xinafoate/ Fluticasone (Advair 250/50 Diskus) 1 inh BID INH Last administered on 03/22/17 08:34; Admin Dose 1 INH; Start 03/20/17 at 21:00 Miscellaneous Information 1 ea NOTE XX ; Start 03/20/17 at 19:30 Glucose (Glutose) 15 gm Q15M PRN PO DECREASED GLUCOSE; Start 03/20/17 at 19:30 Glucose (Glutose) 22.5 gm Q15M PRN PO DECREASED GLUCOSE; Start 03/20/17 at 19: 30 Dextrose (D50w Syringe) 25 ml Q15M PRN IV DECREASED GLUCOSE; Start 03/20/17 at 19:30 Dextrose (D50w Syringe) 50 ml Q15M PRN IV DECREASED GLUCOSE; Start 03/20/17 at 19:30 Glucagon (Glucagen) 1 mg Q15M PRN IM DECREASED GLUCOSE; Start 03/20/17 at 19:30 Glucose (Glutose) 15 gm Q15M PRN BUCCAL DECREASED GLUCOSE; Start 03/20/17 at 19 :30 Enoxaparin Sodium (Lovenox) 40 mg DAILY SC Last administered on 03/22/17 08:39 ; Admin Dose 40 MG; Start 03/21/17 at 09:00 Hydralazine HCl (Apresoline) 10 mg Q6H PRN IV ELEVATED BLOOD PRESSURE Last administered on 03/22/17 06:50; Admin Dose 10 MG; Start 03/20/17 at 19:30 Metoprolol Tartrate (Lopressor) 25 mg BID PO Last administered on 03/22/17 08: 37; Admin Dose 25 MG; Start 03/21/17 at 21:00 Levofloxacin (Levaquin) 500 mg DAILY@06 PO Last administered on 03/22/17 06:12 ; Admin Dose 500 MG; Start 03/22/17 at 06:00 OLESYA LO Mar 22, 2017 11:05
--- NOTE | 2017-03-22 11:08 | CONS ---
Date/Time of Note Date/Time of Note DATE: 03/22/17 TIME: 11:03 Assessment/Plan Assessment/Plan Additional Assessment/Plan Atypical chest pain Hypertension diabetes Dyslipidemia Bronchitis Mild Pulmonary Hypertension Hypothyroidism Hemodynamically stable Ruled out for ACS Echo shows normal systolic function with no segmental wall motion abnormality Awaiting stress test result Continue Metoprolol and diltiazem Continue Losartan Continue Lipitor Continue Insulin Continue Levothyroxine Continue low dose Lasix Continue GI and DVT Prophylaxis Consultation Date/Type/Reason Admit Date/Time Mar 20, 2017 at 16:24 Initial Consult Date Exam/Review of Systems Vital Signs Vitals Vital Signs Date Time Temp Pulse Resp B/P Pulse Ox O2 Delivery O2 Flow Rate FiO2 03/22/17 08:22 78 03/22/17 08:06 97.8 17 166/74 95 03/22/17 07:56 2.0 03/22/17 07:56 Nasal Cannula 03/22/17 01:12 28 Intake and Output 03/21/17 03/21/17 03/22/17 15:00 23:00 07:00 Intake Total 900 ml 440 ml Balance 900 ml 440 ml Exam Constitutional: alert, oriented Head: atraumatic, normocephalic Neck: non-tender, supple Respiratory: clear to auscultation Cardiovascular: regular rate and rhythm (no m/r/g) Gastrointestinal: nl liver, spleen, non-tender, soft Extremities: normal pulses Results Result Diagram: 03/22/17 0650 03/22/17 0650 Results 24 hrs Laboratory Tests Test 03/21/17 11:56 03/21/17 16:55 03/21/17 22:54 03/22/17 06:50 Bedside Glucose 160 126 180 White Blood Count 7.4 Red Blood Count 4.30 Hemoglobin 12.3 Hematocrit 37.0 Mean Corpuscular Volume 86.0 Mean Corpuscular Hemoglobin 28.6 L Mean Corpuscular Hemoglobin Concent 33.2 Red Cell Distribution Width 16.5 H Platelet Count 261 Mean Platelet Volume 11.1 H Neutrophils % 70.8 Lymphocytes % 18.9 Monocytes % 7.3 Eosinophils % 1.8 Basophils % 0.5 Nucleated Red Blood Cells % 0.0 Neutrophils # 5.2 Lymphocytes # 1.4 Monocytes # 0.5 Eosinophils # 0.1 Basophils # 0.0 Nucleated Red Blood Cells # 0.0 Sodium Level 139 Potassium Level 4.1 Chloride Level 103 Carbon Dioxide Level 30 Anion Gap 10 Blood Urea Nitrogen 22 H Creatinine 0.49 Glucose Level 158 Calcium Level 9.1 Triglycerides Level 67 Cholesterol Level 173 LDL Cholesterol, Calculated 95 HDL Cholesterol 65 Cholesterol/HDL Ratio 2.6 Test 03/22/17 08:33 Bedside Glucose 152 Medications Medications Current Medications Diagnostic Test (Pha) (Accu-Chek) 1 ea 02 XX Last administered on 03/21/17 02: 35; Admin Dose 1 EA; Start 03/21/17 at 02:00 Atorvastatin Calcium (Lipitor) 20 mg HS PO Last administered on 03/21/17 22:49 ; Admin Dose 20 MG; Start 03/20/17 at 21:00 Diltiazem HCl (Cardizem Cd) 240 mg DAILY PO Last administered on 03/22/17 08: 35; Admin Dose 240 MG; Start 03/21/17 at 09:00 Furosemide (Lasix) 20 mg DAILY PO Last administered on 03/22/17 08:36; Admin Dose 20 MG; Start 03/21/17 at 09:00 Losartan Potassium (Cozaar) 100 mg DAILY PO Last administered on 03/22/17 08: 36; Admin Dose 100 MG; Start 03/21/17 at 09:00 Montelukast Sodium (Singulair) 10 mg HS PO Last administered on 03/21/17 22:49 ; Admin Dose 10 MG; Start 03/20/17 at 21:00 Salmeterol Xinafoate/ Fluticasone (Advair 250/50 Diskus) 1 inh BID INH Last administered on 03/22/17 08:34; Admin Dose 1 INH; Start 03/20/17 at 21:00 Miscellaneous Information 1 ea NOTE XX ; Start 03/20/17 at 19:30 Glucose (Glutose) 15 gm Q15M PRN PO DECREASED GLUCOSE; Start 03/20/17 at 19:30 Glucose (Glutose) 22.5 gm Q15M PRN PO DECREASED GLUCOSE; Start 03/20/17 at 19: 30 Dextrose (D50w Syringe) 25 ml Q15M PRN IV DECREASED GLUCOSE; Start 03/20/17 at 19:30 Dextrose (D50w Syringe) 50 ml Q15M PRN IV DECREASED GLUCOSE; Start 03/20/17 at 19:30 Glucagon (Glucagen) 1 mg Q15M PRN IM DECREASED GLUCOSE; Start 03/20/17 at 19:30 Glucose (Glutose) 15 gm Q15M PRN BUCCAL DECREASED GLUCOSE; Start 03/20/17 at 19 :30 Enoxaparin Sodium (Lovenox) 40 mg DAILY SC Last administered on 03/22/17 08:39 ; Admin Dose 40 MG; Start 03/21/17 at 09:00 Hydralazine HCl (Apresoline) 10 mg Q6H PRN IV ELEVATED BLOOD PRESSURE Last administered on 03/22/17 06:50; Admin Dose 10 MG; Start 03/20/17 at 19:30 Metoprolol Tartrate (Lopressor) 25 mg BID PO Last administered on 03/22/17 08: 37; Admin Dose 25 MG; Start 03/21/17 at 21:00 Levofloxacin (Levaquin) 500 mg DAILY@06 PO Last administered on 03/22/17 06:12 ; Admin Dose 500 MG; Start 03/22/17 at 06:00 EDSON MEADE M.D. Mar 22, 2017 11:08
--- NOTE | 2017-03-22 13:52 | RADRPT ---
PROCEDURE: Lexiscan myocardial perfusion study CLINICAL INDICATION: 66 -year-old patient complaining of chest pain. TECHNIQUE: Lexiscan 0.4 mg intravenously separate acquisition gated myocardial perfusion SPECT usi ng Tc 99m Myoview 30.0 mCi intravenously at stress and Tc-99m Myoview, 10.0 mCi intravenously at res t was performed using the rest/stress sequence. Poststress Myoview SPECT images were obtained in th e supine position. COMPARISON: No prior studies. FINDINGS: Perfusion images reveal no evidence of perfusion defects. Lexiscan post stress gated SPECT images demonstrate no wall motion abnormalities. IMPRESSION: 1. Normal study with no evidence of perfusion defects or wall motion abnormalities. 2. The left ventricle ejection fraction at stress is greater than 70%. RPTAT: HH .Vianey Molina MD, MD Date Time Electronically viewed and signed by .Vianey Molina MD, MD on 03/22/2017 13:52 .L/
[2017-03-22] MEDS: ATORVASTATIN 20 MG TAB PO SCH (21:15)
[2017-03-22] MEDS: MONTELUKAST 10 MG TAB PO SCH (21:15)
[2017-03-23] VITALS (11 sets, daily range): BP systolic 121–149; BP diastolic 59–73; PULSE 61–73; RESP 17–20
[2017-03-23] MEDS: ACCU-CHEK XX SCH (01:01)
[2017-03-23] MEDS: LEVALBUTEROL (NEB) 0.63 MG/3 ML AMP HHN SCH ×4 (01:26→19:59)
[2017-03-23] MEDS: LEVOFLOXACIN 500 MG TAB PO SCH (05:22)
[2017-03-23] MEDS: INSULIN ASPART [NOVOLOG] 3 ML PEN SC SCH ×4 (07:55→20:55)
--- NOTE | 2017-03-23 08:19 | RADRPT ---
PROCEDURE: CT Brain without contrast. CLINICAL INDICATION: Stroke. TECHNIQUE: A multiplanar CT of the brain was performed on a CT scanner utilizing axial imaging fro m the skull base through the vertex without IV contrast. The CTDIvol is 42.69 mGy and the DLP is 72 0.23 mGycm. One or more of the following dose reduction techniques were utilized: Automated exposu re control, adjustment of the mA and/or kV according to patient size, use of iterative reconstructio n technique. DICOM images are available. COMPARISON: None FINDINGS: No evidence of intracranial hemorrhage or abnormal extra-axial fluid collection. No edema, mass effect, or shift. Densely calcified cavernous carotid internal arteries bilaterally right supraclin oid internal carotid artery. 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 Superimposed intracranial aneu rysm cannot be excluded. CT angiogram is recommended for further evaluation. Patchy periventricular and subcortical white matter low attenuation compatible with sequelae of lunchroom aide chely microvascular ischemic injury. The brain parenchyma is otherwise normal attenuation and morpholo gy with preservation of dempsey white differentiation.The ventricles and subarachnoid spaces are promin ent compatible with mild volume loss. The basal cisterns, posterior fossa contents, brainstem, craniocervical junction, orbits, pituitary axis, paranasal sinuses, mastoid air cells, and calvarium are unremarkable. IMPRESSION: 1. No intracranial hemorrhage or acute intracranial abnormality. 2. Densely calcified cavernous and supraclinoid internal carotid arteries with fusiform the aneurys mal dilatation and atherosclerotic calcification of the right proximal M1 segment of the middle cere bral artery. Superimposed intracranial aneurysm cannot be excluded. CT angiogram is recommended for further evaluation. 3. Mild chronic microvascular ischemic changes and age appropriate volume loss. Early ischemic inju ry may be occult to CT imaging and diffusion weighted MRI may be considered as clinically warranted. Critical results were discussed with Ana Ortiz the patient's nurse 03/23/2017 8:14:59 AM . RPTAT:AAJJ Physician Leena Date Time Electronically viewed and signed by Physician Leena on 03/23/2017 08:19 MICHAEL/
[2017-03-23] MEDS: DILTIAZEM (CD) 240 MG CAP PO SCH (08:25)
[2017-03-23] MEDS: LOSARTAN 50 MG TAB PO SCH (08:25)
[2017-03-23] MEDS: LEVOTHYROXINE 50 MCG TAB PO SCH (08:25)
[2017-03-23] MEDS: FUROSEMIDE 20 MG TAB PO SCH (08:26)
[2017-03-23] MEDS: METOPROLOL 25 MG TAB PO SCH ×2 (08:26→20:47)
[2017-03-23] MEDS: SALMETEROL/FLUTICASONE 250/50 INHA INH SCH ×2 (08:27→20:54)
[2017-03-23] MEDS: ENOXAPARIN 40 MG/0.4 ML SYG SC SCH (08:32)
--- NOTE | 2017-03-23 10:51 | CONS ---
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 of approximately 9.0 x9.6 x 9.3 mm (TR/AP/CC) Continue Metoprolol and diltiazem Continue Losartan Continue Lipitor Continue Insulin Continue Levothyroxine Continue low dose Lasix Continue GI and DVT Prophylaxis Recommend CTA or MRI of [place] Consultation Date/Type/Reason Admit Date/Time Mar 22, 2017 at 15:46 Exam/Review of Systems Vital Signs Vitals Vital Signs Date Time Temp Pulse Resp B/P Pulse Ox O2 Delivery O2 Flow Rate FiO2 03/23/17 08:16 61 03/23/17 08:01 97.9 17 140/73 95 03/23/17 07:39 Nasal Cannula 2.0 03/23/17 01:26 28 Intake and Output 03/22/17 03/22/17 03/23/17 15:00 23:00 07:00 Intake Total 900 ml 500 ml Balance 900 ml 500 ml Exam Constitutional: alert Head: atraumatic, normocephalic Neck: non-tender, supple Respiratory: clear to auscultation Cardiovascular: regular rate and rhythm Gastrointestinal: nl liver, spleen, non-tender, soft Extremities: normal pulses Results Result Diagram: 03/22/17 0650 03/22/17 0650 Results 24 hrs Laboratory Tests Test 03/22/17 11:52 03/22/17 17:13 03/22/17 21:28 03/23/17 08:11 Bedside Glucose 139 134 129 127 Medications Medications Current Medications Diagnostic Test (Pha) (Accu-Chek) 1 ea 02 XX Last administered on 03/21/17 02: 35; Admin Dose 1 EA; Start 03/21/17 at 02:00 Atorvastatin Calcium (Lipitor) 20 mg HS PO Last administered on 03/22/17 21:15 ; Admin Dose 20 MG; Start 03/20/17 at 21:00 Diltiazem HCl (Cardizem Cd) 240 mg DAILY PO Last administered on 03/23/17 08: 25; Admin Dose 240 MG; Start 03/21/17 at 09:00 Furosemide (Lasix) 20 mg DAILY PO Last administered on 03/23/17 08:26; Admin Dose 20 MG; Start 03/21/17 at 09:00 Losartan Potassium (Cozaar) 100 mg DAILY PO Last administered on 03/23/17 08: 25; Admin Dose 100 MG; Start 03/21/17 at 09:00 Montelukast Sodium (Singulair) 10 mg HS PO Last administered on 03/22/17 21:15 ; Admin Dose 10 MG; Start 03/20/17 at 21:00 Salmeterol Xinafoate/ Fluticasone (Advair 250/50 Diskus) 1 inh BID INH Last administered on 03/23/17 08:27; Admin Dose 1 INH; Start 03/20/17 at 21:00 Miscellaneous Information 1 ea NOTE XX ; Start 03/20/17 at 19:30 Glucose (Glutose) 15 gm Q15M PRN PO DECREASED GLUCOSE; Start 03/20/17 at 19:30 Glucose (Glutose) 22.5 gm Q15M PRN PO DECREASED GLUCOSE; Start 03/20/17 at 19: 30 Dextrose (D50w Syringe) 25 ml Q15M PRN IV DECREASED GLUCOSE; Start 03/20/17 at 19:30 Dextrose (D50w Syringe) 50 ml Q15M PRN IV DECREASED GLUCOSE; Start 03/20/17 at 19:30 Glucagon (Glucagen) 1 mg Q15M PRN IM DECREASED GLUCOSE; Start 03/20/17 at 19:30 Glucose (Glutose) 15 gm Q15M PRN BUCCAL DECREASED GLUCOSE; Start 03/20/17 at 19 :30 Enoxaparin Sodium (Lovenox) 40 mg DAILY SC Last administered on 03/23/17 08: 32; Admin Dose 40 MG; Start 03/21/17 at 09:00 Hydralazine HCl (Apresoline) 10 mg Q6H PRN IV ELEVATED BLOOD PRESSURE Last administered on 03/22/17 11:59; Admin Dose 10 MG; Start 03/20/17 at 19:30 Metoprolol Tartrate (Lopressor) 25 mg BID PO Last administered on 03/23/17 08 :26; Admin Dose 25 MG; Start 12/8/17 at 21:00 Levofloxacin (Levaquin) 500 mg DAILY@06 PO Last administered on 03/23/17t 05: 22; Admin Dose 500 MG; Start 03/22/17 at 06:00 Acetaminophen (Tylenol Tab) 650 mg Q4H PRN PO PAIN AND OR ELEVATED TEMP; Start 03/22/17 at 12:30 EDSON MEADE M.D. Mar 23, 2017 10:51
--- NOTE | 2017-03-23 11:07 | PN ---
Date/Time of Note Date/Time of Note DATE: 03/23/17 TIME: 11:06 Assessment/Plan VTE Prophylaxis VTE Prophylaxis Intervention: other Lines/Catheters IV [facility]from [facility] Saline Lock Assessment/Plan Chief Complaint/Hosp Course - Chest pain, rule out acute coronary syndrome. Troponin is negative 3. Dr. Moreno is called following in cardiology consultation. - Hypertension. - Diabetes mellitus with hemoglobin A1c 7.7. -Hypothyroidism, TSH is within normal limits, continue Synthroid. - History of dyslipidemia. - History of asthma, question chronic obstructive pulmonary disease. - Possible bronchitis - left arm weakness. will do MRI of head and MRA to evaluated for aneurysm Problems: Subjective 24 Hr Interval Summary Free Text/Dictation Patient denies chest pain but has heaviness in left arm Exam/Review of Systems Vital Signs Vitals Vital Signs Date Time Temp Pulse Resp B/P Pulse Ox O2 Delivery O2 Flow Rate FiO2 03/23/17 08:16 61 03/23/17 08:01 97.9 17 140/73 95 03/23/17 07:39 Nasal Cannula 2.0 03/23/17 01:26 28 Intake and Output 03/22/17 03/22/17 03/23/17 15:00 23:00 07:00 Intake Total 900 ml 500 ml Balance 900 ml 500 ml Exam Constitutional: well developed Head: atraumatic, normocephalic Neck: supple Respiratory: clear to auscultation Cardiovascular: regular rate and rhythm Gastrointestinal: non-tender, soft Extremities: normal pulses Results Result Diagram: 03/22/17 0650 03/22/17 0650 Results 24 hrs Laboratory Tests Test 03/22/17 11:52 03/22/17 17:13 03/22/17 21:28 03/23/17 08:11 Bedside Glucose 139 134 129 127 Medications Medications Current Medications Diagnostic Test (Pha) (Accu-Chek) 1 ea 02 XX Last administered on 03/21/17 02: 35; Admin Dose 1 EA; Start 03/21/17 at 02:00 Atorvastatin Calcium (Lipitor) 20 mg HS PO Last administered on 03/22/17 21:15 ; Admin Dose 20 MG; Start 03/20/17 at 21:00 Diltiazem HCl (Cardizem Cd) 240 mg DAILY PO Last administered on 03/23/17 08: 25; Admin Dose 240 MG; Start 03/21/17 at 09:00 Furosemide (Lasix) 20 mg DAILY PO Last administered on 03/23/17 08:26; Admin Dose 20 MG; Start 03/21/17 at 09:00 Losartan Potassium (Cozaar) 100 mg DAILY PO Last administered on 03/23/17 08: 25; Admin Dose 100 MG; Start 03/21/17 at 09:00 Montelukast Sodium (Singulair) 10 mg HS PO Last administered on 03/22/17 21:15 ; Admin Dose 10 MG; Start 03/20/17 at 21:00 Salmeterol Xinafoate/ Fluticasone (Advair 250/50 Diskus) 1 inh BID INH Last administered on 03/23/17 08:27; Admin Dose 1 INH; Start 03/20/17 at 21:00 Miscellaneous Information 1 ea NOTE XX ; Start 03/20/17 at 19:30 Glucose (Glutose) 15 gm Q15M PRN PO DECREASED GLUCOSE; Start 03/20/17 at 19:30 Glucose (Glutose) 22.5 gm Q15M PRN PO DECREASED GLUCOSE; Start 03/20/17 at 19: 30 Dextrose (D50w Syringe) 25 ml Q15M PRN IV DECREASED GLUCOSE; Start 03/20/17 at 19:30 Dextrose (D50w Syringe) 50 ml Q15M PRN IV DECREASED GLUCOSE; Start 03/20/17 at 19:30 Glucagon (Glucagen) 1 mg Q15M PRN IM DECREASED GLUCOSE; Start 03/20/17 at 19:30 Glucose (Glutose) 15 gm Q15M PRN BUCCAL DECREASED GLUCOSE; Start 03/20/17 at 19 :30 Enoxaparin Sodium (Lovenox) 40 mg DAILY SC Last administered on 03/23/17 08: 32; Admin Dose 40 MG; Start 03/21/17 at 09:00 Hydralazine HCl (Apresoline) 10 mg Q6H PRN IV ELEVATED BLOOD PRESSURE Last administered on 03/22/17 11:59; Admin Dose 10 MG; Start 03/20/17 at 19:30 Metoprolol Tartrate (Lopressor) 25 mg BID PO Last administered on 03/23/17 08 :26; Admin Dose 25 MG; Start 03/21/17 at 21:00 Levofloxacin (Levaquin) 500 mg DAILY@06 PO Last administered on 03/23/17t 05: 22; Admin Dose 500 MG; Start 03/22/17 at 06:00 Acetaminophen (Tylenol Tab) 650 mg Q4H PRN PO PAIN AND OR ELEVATED TEMP; Start 03/22/17 at 12:30 OLESYA LO Mar 23, 2017 11:07
--- NOTE | 2017-03-23 11:56 | ERD ---
DATE OF SERVICE: 03/22/2017 INDICATION: Chest pain. CLINICAL: The patient is a 66-year-old female with baseline chest pain. With a heart rate of 77 be ats per minute. Baseline blood pressure 170/73 mmHg. Peak heart rate was 95 beats per minute, peak blood pressure was 170/73 mmHg. However, the patient complained of chest and neck pain. EKG shows normal sinus rhythm with a ventricular rate of 77 beats per minute, normal NC, normal QRS, normal QT intervals, no acute ST-T wave changes. The peak heart rate of 100 beats per minute, norm al NC, normal QRS, normal QT interval. There was no dynamic ST-T wave changes compared to baseline. CONCLUSION: Clinically, nonischemic. EKG nonischemic Cardiolite. Stress images to follow this dic tation. Dictated By: EDSON MEADE MD SR/ANNEMARIE Conf#: [id number] DID#: [id number]
[2017-03-23] MEDS ORDERED: IOHEXOL 100 ML ONE (14:07)
[2017-03-23] MEDS ORDERED: SOD CHLORIDE 0.9% 100 ML ONE (14:07)
[2017-03-23] MEDS: ATORVASTATIN 20 MG TAB PO SCH (20:47)
[2017-03-23] MEDS: MONTELUKAST 10 MG TAB PO SCH (20:47)
[2017-03-23] MEDS: DOCUSATE SODIUM 100 MG CAP PO SCH (20:53)
--- NOTE | 2017-03-23 22:16 | RADRPT ---
PROCEDURE: CTA Head CLINICAL INDICATION: Rostral. Left arm weakness. TECHNIQUE: CTA of the head was obtained. Images were obtained following the intravenous contrast a dministration of 85 cc Omnipaque 350 contrast. The administered radiation dose was CTDI vol = 110.5 1, 32.14 mGy, total DLP = 764.49 mGy-cm. Coronal and sagittal as well as maximal intensity projecti on reformations were obtained. One or more of the following dose reduction techniques were used: Aut omated exposure control, Adjustment of the mA and/or kV according to patient size, or Use of iterati ve reconstruction technique. COMPARISON: Noncontrast CT brain 03/22/2017 FINDINGS: Images through the neck reveal nearly concentric soft and calcific atherosclerotic plaque involving the origin of the left internal carotid artery with associated approximately 25% stenosis by NASCET criteria (series 2, image 305). The right cervical carotid bifurcation is not included in the images . There is no significant stenosis of the imaged portions of the cervical right internal carotid [place]. The imaged distal V2 segments of the vertebral arteries appear widely patent. CTA head: Carotid arteries: There is extensive soft and calcific atherosclerotic plaque involving the cavernou s and supraclinoid segments of the internal carotid arteries bilaterally. There is associated multif ocal mild to moderate stenoses of the right internal carotid artery. There is associated moderate to severe stenosis at the anterior genu the proximal supraclinoid segment of the left internal carotid artery (series 2, image 174). There is eccentric soft and calcific atherosclerotic plaque of the di stal left internal carotid artery, just distal to the origin of the left posterior communicating [place] with associated mild stenosis with residual lumen measuring 2.5 mm in diameter at this segment ( series 2, image 166). There is fusiform, calcified aneurysmal dilatation of the distal supraclinoid right internal carotid artery which measures approximately 7.1 mm in diameter and involves an approx imately 12 mm segment of the distal right internal carotid artery (series 2, image 162). The right posterior communicating artery ( type right posterior cerebral artery) arises from the aneurysm al segment (series 2, image 167). Anterior cerebral arteries: The left A1 segment is hypoplastic. The right A1 segment supplies the bi lateral anterior cerebral arteries. No significant stenosis. Middle cerebral arteries: There is multifocal atherosclerosis of the middle cerebral arteries [place]. There is multifocal mild to moderate stenoses of the M1 segment of the right middle cerebral artery. There is focal severe stenosis of the proximal inferior division/M2 branch of the right midd le cerebral artery (series 2, images 175 - 177). There is multifocal mild and moderate stenosis of the M1 and M2 segments of the left middle cerebral artery. Posterior cerebral arteries: There is origin of the right posterior cerebral artery (hypoplast ic right P1 segment) which arises from the aneurysmal portion of the distal right internal carotid a rtery (series 2, image 167). There is mild focal stenosis at the origin of the right posterior commu nicating artery (series 2, image 167). There is focal severe stenosis of the P2 segment of the right posterior cerebral artery with mild post stenotic dilatation (series 2, image 168). There is modera te to severe stenosis of the P2 segment of the right posterior cerebral artery (series 2, images 160 , 161). There is mild focal stenosis of the distal P1 segment of the left posterior cerebral artery (series 2, image 162). There is multifocal mild to moderate stenosis of the left posterior cerebral artery ( series 2, image 161). Anterior communicating artery: The left A1 segment is hypoplastic. Bilateral anterior cerebral arter ies is supplied by the right A1 segment. Posterior communicating arteries: There is origin of the right posterior cerebral artery (hypo plastic right P1 segment). There is mild to moderate stenosis of the mid to distal left posterior co mmunicating artery (series 2, image 168). Basilar artery: There is multifocal mild stenosis of the basilar artery. V3/V4 Vertebral arteries: There is moderate to severe stenosis of the distal intradural (V4 segment ) right vertebral artery. The left vertebral artery is patent with evidence of mild scattered athero sclerotic plaque and associated mild stenosis. Venous sinuses: Patent. IMPRESSION: CTA Head 1. No intracranial large arterial thrombus or occlusion. 2. Extensive diffuse multifocal intracranial atherosclerosis involving the internal carotid arteries , middle cerebral arteries, posterior communicating arteries, posterior cerebral arteries, distal in tradural (V4) right vertebral artery and basilar artery, with focal areas of mild, moderate, and sev ere stenosis, as detailed above. 3. 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 The right posterior communicating artery ( type right p osterior cerebral artery) arises from the aneurysmal segment. 4. Nearly concentric soft and calcific atherosclerotic plaque involving the origin of the left inter nal carotid artery with associated approximately 25% stenosis by NASCET criteria. As per NASCET crit eria, direct measurement of vessel diameter was made in reference to measurement of the ipsilateral distal internal carotid artery diameter. Other findings, described above. RPTAT: HRC Physician Nacho Date Time Electronically viewed and signed by Rebecca Becerra Physician on 03/23/2017 22:15 PRISCA/
[2017-03-24] VITALS (16 sets, daily range): BP systolic 106–205; BP diastolic 54–88; PULSE 61–72; RESP 18–22
[2017-03-24] MEDS: ACCU-CHEK XX SCH (01:00)
[2017-03-24] MEDS: LEVALBUTEROL (NEB) 0.63 MG/3 ML AMP HHN SCH ×4 (01:29→20:35)
[2017-03-24] MEDS: LEVOFLOXACIN 500 MG TAB PO SCH (05:07)
[2017-03-24] MEDS: INSULIN ASPART [NOVOLOG] 3 ML PEN SC SCH ×4 (07:55→21:38)
[2017-03-24] MEDS: LEVOTHYROXINE 50 MCG TAB PO SCH (08:06)
[2017-03-24] MEDS: DOCUSATE SODIUM 100 MG CAP PO SCH ×2 (08:07→21:28)
[2017-03-24] MEDS: METOPROLOL 25 MG TAB PO SCH ×2 (08:08→21:28)
[2017-03-24] MEDS: DILTIAZEM (CD) 240 MG CAP PO SCH (08:08)
[2017-03-24] MEDS: LOSARTAN 50 MG TAB PO SCH (08:08)
[2017-03-24] MEDS: FUROSEMIDE 20 MG TAB PO SCH (08:09)
[2017-03-24] MEDS: SALMETEROL/FLUTICASONE 250/50 INHA INH SCH ×2 (08:13→21:27)
[2017-03-24] MEDS: ENOXAPARIN 40 MG/0.4 ML SYG SC SCH (08:13)
[2017-03-24] MEDS: hydrALAzine 20 MG INJ IV PRN (09:04)
--- NOTE | 2017-03-24 11:45 | CONS ---
Date/Time of Note Date/Time of Note DATE: 03/24/17 TIME: 11:38 Assessment/Plan Assessment/Plan Chief Complaint/Hosp Course IMPRESSION: 1. Chest pain, assess for acute coronary syndrome with negative troponins x3 at this time, multiple cardiac risk factors.lexiscan this admit with no ischemia /NLEF. NL EF by echo and no sig valve abnl, mild-mod eff 2. Abnormal electrocardiogram with T-wave flattening isolated to lead aVL. 3. Hypertension, labile, but currently under reasonable control- component of pain/nxiety 4. History of dyslipidemia. 5. Diabetes mellitus. 6. Probable upper respiratory infection, question bronchitis. 7. History of hypothyroidism. 8. History of asthma, question chronic obstructive pulmonary disease 9. Pericardial [id number]-hduw-[id number] by echo with no sign of tamponade 10. Aneursymal R carotid and extensive intracranial atherosclerosis Recc: -Tele -pnding MRI?/Neuro or vascular consult -Continue current dilt/BB/losartan and follow very labile but currently reasonable BP -Continue statin -Continue daily lasix PO Problems: Consultation Date/Type/Reason Admit Date/Time Mar 22, 2017 at 15:46 Initial Consult Date 03/22/2017 Type of Consultation: cardiology Reason for Consultation chest pain Referring Provider: CLAUDIA FOSTER MD Exam/Review of Systems Vital Signs Vitals Vital Signs Date Time Temp Pulse Resp B/P Pulse Ox O2 Delivery O2 Flow Rate FiO2 03/24/17 11:19 98.0 70 22 106/54 93 03/24/17 08:27 Nasal Cannula 4.0 03/23/17 14:16 28 Intake and Output 03/23/17 03/23/17 03/24/17 15:00 23:00 07:00 Intake Total 1000 ml 500 ml Balance 1000 ml 500 ml Exam Review of Systems: CONSTITUTIONAL: No fevers, chills. PULMONARY: No sob CARDIOVASCULAR: No chest pain/palpitations GASTROINTESTINAL: No nausea/vomiting. GENITOURINARY: No hematuria/dysuria. MUSCULOSKELETAL: arm weakness PSYCHIATRIC: The patient denies depression. NEUROLOGIC: No weakness Constitutional: alert, oriented Psych: no complaints Head: normocephalic Neck: jvd (9 cm water), supple Respiratory: clear to auscultation Cardiovascular: regular rate and rhythm Gastrointestinal: non-tender, soft Musculoskeletal: muscle tone (normal) Extremities: edema (none) Neurological: other (UE weakness) Results Result Diagram: 03/22/17 0650 03/22/17 0650 Results 24 hrs Laboratory Tests Test 03/23/17 11:45 03/23/17 17:21 03/23/17 19:37 03/24/17 08:12 Bedside Glucose 209 191 137 124 Medications Medications Current Medications Diagnostic Test (Pha) (Accu-Chek) 1 ea 02 XX Last administered on 03/21/17 02: 35; Admin Dose 1 EA; Start 03/21/17 at 02:00 Atorvastatin Calcium (Lipitor) 20 mg HS PO Last administered on 03/23/17 20: 47; Admin Dose 20 MG; Start 03/20/17 at 21:00 Diltiazem HCl (Cardizem Cd) 240 mg DAILY PO Last administered on 03/24/17 08: 08; Admin Dose 240 MG; Start 03/21/17 at 09:00 Furosemide (Lasix) 20 mg DAILY PO Last administered on 03/24/17 08:09; Admin Dose 20 MG; Start 03/21/17 at 09:00 Losartan Potassium (Cozaar) 100 mg DAILY PO Last administered on 03/24/17 08: 08; Admin Dose 100 MG; Start 03/21/17 at 09:00 Montelukast Sodium (Singulair) 10 mg HS PO Last administered on 03/23/17 20: 47; Admin Dose 10 MG; Start 03/20/17 at 21:00 Salmeterol Xinafoate/ Fluticasone (Advair 250/50 Diskus) 1 inh BID INH Last administered on 03/24/17 08:13; Admin Dose 1 INH; Start 03/20/17 at 21:00 Miscellaneous Information 1 ea NOTE XX ; Start 03/20/17 at 19:30 Glucose (Glutose) 15 gm Q15M PRN PO DECREASED GLUCOSE; Start 03/20/17 at 19:30 Glucose (Glutose) 22.5 gm Q15M PRN PO DECREASED GLUCOSE; Start 03/20/17 at 19: 30 Dextrose (D50w Syringe) 25 ml Q15M PRN IV DECREASED GLUCOSE; Start 03/20/17 at 19:30 Dextrose (D50w Syringe) 50 ml Q15M PRN IV DECREASED GLUCOSE; Start 03/20/17 at 19:30 Glucagon (Glucagen) 1 mg Q15M PRN IM DECREASED GLUCOSE; Start 03/20/17 at 19:30 Glucose (Glutose) 15 gm Q15M PRN BUCCAL DECREASED GLUCOSE; Start 03/20/17 at 19 :30 Enoxaparin Sodium (Lovenox) 40 mg DAILY SC Last administered on 03/24/17 08: 13; Admin Dose 40 MG; Start 03/21/17 at 09:00 Hydralazine HCl (Apresoline) 10 mg Q6H PRN IV ELEVATED BLOOD PRESSURE Last administered on 03/24/17 09:04; Admin Dose 10 MG; Start 03/20/17 at 19:30 Metoprolol Tartrate (Lopressor) 25 mg BID PO Last administered on 03/24/17 08 :08; Admin Dose 25 MG; Start 03/21/17 at 21:00 Levofloxacin (Levaquin) 500 mg DAILY@06 PO Last administered on 03/24/17 05: 07; Admin Dose 500 MG; Start 03/22/17 at 06:00 Acetaminophen (Tylenol Tab) 650 mg Q4H PRN PO PAIN AND OR ELEVATED TEMP; Start 03/22/17 at 12:30 Docusate Sodium (Colace) 100 mg BID PO Last administered on 03/24/17 08:07; Admin Dose 100 MG; Start 03/23/17 at 21:00 JUSTIN ARCE Mar 24, 2017 11:45
--- NOTE | 2017-03-24 16:12 | PN ---
Date/Time of Note Date/Time of Note DATE: 03/24/17 TIME: 16:06 Assessment/Plan VTE Prophylaxis VTE Prophylaxis Intervention: SCD's Lines/Catheters IV Catheter Type (from Nrs): Saline Lock Assessment/Plan Chief Complaint/Hosp Course Patient's complains headache and neck pain and left upper extremities weakness, 5 out of 5 motor strength noted on exam and left upper extremity, patient is pending MRI of the brain, will add Dr. Webber to see patient in neurology evaluation. Assessment/Plan - Chest pain, rule out acute coronary syndrome. Troponin is negative 3. Dr. Moreno is called following in cardiology consultation. - Hypertension. - Diabetes mellitus with hemoglobin A1c 7.7. -Hypothyroidism, TSH is within normal limits, continue Synthroid. - History of dyslipidemia. - History of asthma, question chronic obstructive pulmonary disease. - Possible bronchitis Further recommendations based on clinical course. Plan of care discussed with Dr. Lin. Problems: Exam/Review of Systems Vital Signs Vitals Vital Signs Date Time Temp Pulse Resp B/P Pulse Ox O2 Delivery O2 Flow Rate FiO2 03/24/17 16:05 72 03/24/17 15:34 97.0 20 134/63 92 03/24/17 13:32 21 03/24/17 08:27 Nasal Cannula 4.0 Intake and Output 03/23/17 03/23/17 03/24/17 15:00 23:00 07:00 Intake Total 1000 ml 500 ml Balance 1000 ml 500 ml Exam Constitutional: alert, oriented Head: normocephalic Neck: supple Respiratory: clear to auscultation Cardiovascular: nl pulses, regular rate and rhythm Gastrointestinal: non-tender, soft Extremities: normal pulses Results Result Diagram: 03/22/17 0650 03/22/17 0650 Results 24 hrs Laboratory Tests Test 03/23/17 17:21 03/23/17 19:37 03/24/17 08:12 03/24/17 11:39 Bedside Glucose 191 137 124 197 Medications Medications Current Medications Diagnostic Test (Pha) (Accu-Chek) 1 ea 02 XX Last administered on 03/21/17 02: 35; Admin Dose 1 EA; Start 03/21/17 at 02:00 Atorvastatin Calcium (Lipitor) 20 mg HS PO Last administered on 03/23/17 20: 47; Admin Dose 20 MG; Start 03/20/17 at 21:00 Diltiazem HCl (Cardizem Cd) 240 mg DAILY PO Last administered on 03/24/17 08: 08; Admin Dose 240 MG; Start 03/21/17 at 09:00 Furosemide (Lasix) 20 mg DAILY PO Last administered on 03/24/17 08:09; Admin Dose 20 MG; Start 03/21/17 at 09:00 Losartan Potassium (Cozaar) 100 mg DAILY PO Last administered on 03/24/17 08: 08; Admin Dose 100 MG; Start 03/21/17 at 09:00 Montelukast Sodium (Singulair) 10 mg HS PO Last administered on 03/23/17 20: 47; Admin Dose 10 MG; Start 03/20/17 at 21:00 Salmeterol Xinafoate/ Fluticasone (Advair 250/50 Diskus) 1 inh BID INH Last administered on 03/24/17 08:13; Admin Dose 1 INH; Start 03/20/17 at 21:00 Miscellaneous Information 1 ea NOTE XX ; Start 03/20/17 at 19:30 Glucose (Glutose) 15 gm Q15M PRN PO DECREASED GLUCOSE; Start 03/20/17 at 19:30 Glucose (Glutose) 22.5 gm Q15M PRN PO DECREASED GLUCOSE; Start 03/20/17 at 19: 30 Dextrose (D50w Syringe) 25 ml Q15M PRN IV DECREASED GLUCOSE; Start 03/20/17 at 19:30 Dextrose (D50w Syringe) 50 ml Q15M PRN IV DECREASED GLUCOSE; Start 03/20/17 at 19:30 Glucagon (Glucagen) 1 mg Q15M PRN IM DECREASED GLUCOSE; Start 03/20/17 at 19:30 Glucose (Glutose) 15 gm Q15M PRN BUCCAL DECREASED GLUCOSE; Start 03/20/17 at 19 :30 Enoxaparin Sodium (Lovenox) 40 mg DAILY SC Last administered on 03/24/17 08: 13; Admin Dose 40 MG; Start 03/21/17 at 09:00 Hydralazine HCl (Apresoline) 10 mg Q6H PRN IV ELEVATED BLOOD PRESSURE Last administered on 03/24/17 09:04; Admin Dose 10 MG; Start 03/20/17 at 19:30 Metoprolol Tartrate (Lopressor) 25 mg BID PO Last administered on 03/24/17 08 :08; Admin Dose 25 MG; Start 03/21/17 at 21:00 Levofloxacin (Levaquin) 500 mg DAILY@06 PO Last administered on 03/24/17 05: 07; Admin Dose 500 MG; Start 03/22/17 at 06:00 Acetaminophen (Tylenol Tab) 650 mg Q4H PRN PO PAIN AND OR ELEVATED TEMP; Start 03/22/17 at 12:30 Docusate Sodium (Colace) 100 mg BID PO Last administered on 03/24/17 08:07; Admin Dose 100 MG; Start 03/23/17 at 21:00 ANA MARIA JOSHI Mar 24, 2017 16:12
--- NOTE | 2017-03-24 20:50 | RADRPT ---
PROCEDURE: US Carotids. CLINICAL INDICATION: Syncope. Left-sided weakness. TECHNIQUE: Multiple sonographic of the carotid bifurcation region and vertebral arteries were obta ined utilizing dempsey scale, duplex and color-flow imaging. The images were reviewed on a PACS worksta tion. COMPARISON: None FINDINGS: Evaluation of the right carotid bifurcation region reveals mild calcific atherosclerotic disease. Evaluation of the left carotid bifurcation region reveals mild calcific atherosclerotic disease. There is antegrade flow within the vertebral arteries bilaterally. RIGHT CAROTID MEASUREMENTS: Common Carotid [id number] (cm/sec) Internal Carotid Artery - [id number] (cm/sec) Internal Carotid Artery - [id number] (cm/sec) Internal Carotid Artery - [id number] (cm/sec) Internal Carotid/Common Carotid1.9 LEFT CAROTID MEASUREMENTS: Common Carotid Artery 129 (cm/sec) Internal Carotid Artery - proximal 69 (cm/sec) Internal Carotid Artery - mid 101 (cm/sec) Internal Carotid Artery - distal 91 (cm/sec) Internal Carotid/Common Carotid 0.8 IMPRESSION: 1. Moderate stenosis ( 50 - 69% ) of the right internal carotid artery. 2. No evidence of a significant stenosis of the left internal carotid artery. 3. Normal antegrade flow in the vertebral arteries bilaterally. Measurement of carotid stenosis is based on peak systolic and diastolic velocity parameters that cor relate to the residual internal carotid diameter with [place] Symptomatic Carotid Endarterect darya Trial (NASCET) based stenosis levels. Normal ( < 50% )- ICA peak systolic velocity < 125 cm/sec, ICA / CCA ratio < 2.0 Moderate stenosis ( 50 - 69% )- ICA peak systolic velocity 125 - 230 cm/sec, ICA / CCA ratio 2.0 - 4.0 Severe stenosis ( >70% )- ICA peak systolic velocity > 230 cm/sec, ICA / CCA ratio > 4.0 RPTAT:AAJJ Physician Glenn Date Time Electronically viewed and signed by Physician Glenn on 03/24/2017 20:50 /
[2017-03-24] MEDS: ATORVASTATIN 80 MG TAB PO SCH (21:29)
[2017-03-24] MEDS: MONTELUKAST 10 MG TAB PO SCH (21:29)
[2017-03-25] VITALS (13 sets, daily range): BP systolic 136–186; BP diastolic 66–81; PULSE 59–84; RESP 20
--- NOTE | 2017-03-25 00:35 | CONS ---
DATE OF ADMISSION: 03/22/2017 DATE OF CONSULTATION: 03/24/2017 TYPE OF CONSULTATION: Neurology. Thank you, Dr. Foster and nurse practitioner Mechelle Freeman, for your kind referral for evaluation of possible stroke. HISTORY OF PRESENT ILLNESS: The patient is a 66-year-old lady with past medical history of hypertension, diabetes, asthma, presented with chest pain and shortness of breath as well as cough and nasal congestion. The patient stated that for about 2 days prior to admission to the hospital, she was complaining of pain and some numbing and unpleasant sensation in the left shoulder and felt some weakness in the left upper extremity. It has gotten better. The patient had CAT scan of the head which shows essentially absence of any intracranial abnormality but densely calcified internal carotid arteries and fusiform aneurysmal dilation in the right M1 segment of the middle cerebral artery was seen and a CT angiogram of the brain was performed. It showed extensive diffuse multifocal intracranial atherosclerosis involving internal carotid arteries, middle cerebral arteries, posterior communicating arteries, posterior cerebral arteries, distal intradural right vertebral artery and basilar artery with focal areas of mild, moderate and even severe stenosis as described in the body of the report. Some calcified plaque in the origin of the internal carotid artery on the left was seen but only 25% stenosis in the artery was seen. MRI of the brain was requested and is pending. The patient's labs show essentially normal comprehensive metabolic panel. Troponins were negative. Hemoglobin A1c was 7.7. Lipid profile shows cholesterol 173, LDL 95, HDL 65. Normal PT, PTT. Essentially normal CBC. Here in the hospital, the patient was diagnosed with chest pain. Cardiology service is on the case. So far, troponin is negative. Lexiscan was negative. Normal ejection fraction by echocardiogram. She has labile hypertension, history of dyslipidemia, diabetes , probable bronchitis, hypothyroidism by history, also asthma versus COPD. She received aspirin in the emergency room. MEDICATIONS PRIOR TO ADMISSION: 1. Albuterol. 2. Atorvastatin. 3. DuoNeb. 4. Diltiazem. 5. Losartan. 6. Lasix. 7. Montelukast. 8. Advair. 9. Omeprazole. 10. L-thyroxine. 11. Metformin. The patient received aspirin in the emergency room. She stated that she used to take aspirin and it does not affect her asthma. Currently, she is on: 1. Colace. 2. Levaquin. 3. Lopressor. 4. Breathing treatments with albuterol. 5. Lasix. 6. Losartan. 7. Synthroid. 8. Lipitor 20. 9. Singulair. 10. Advair. ALLERGIES: SHE IS ALLERGIC TO: 1. PENICILLIN. 2. AMOXICILLIN. 3. FAMOTIDINE. SOCIAL HISTORY: No alcohol, tobacco, drug use. FAMILY HISTORY: Coronary artery disease. REVIEW OF SYSTEMS: All pertinent positives included in the above history of present illness. PHYSICAL EXAMINATION: VITAL SIGNS: Today, 97.6 temperature, 78 pulse, 20 respirations, 176/83 blood pressure. GENERAL: Not in acute distress, lying in bed. HEENT: Normocephalic, atraumatic head. NECK: No carotid bruits. No thyromegaly. LUNGS: Clear. CARDIAC: Normal cardiac rhythm and sounds. ABDOMEN: Soft, nontender. EXTREMITIES: No cyanosis, clubbing or edema. NEUROLOGIC: She is awake, alert and oriented x3 with fluent speech. Cranial nerve examination shows intact visual rangel bilaterally. Pupils reactive from 3 to 2 mm bilaterally. There is mild anisocoria with right pupil slightly wider but reactive. Symmetrical face. Preserved facial strength and sensation. Tongue is in the midline. Palate elevates symmetrically. Motor strength examination seems to be preserved in all extremities. I did not appreciate any weakness. There is some pain in the shoulder with manual strength testing and maybe some amount of give-away strength. The patient has trace of down drift but no pronator drift in the left upper extremity. Normal bulk and tone. Sensory examination intact to light touch and pain grossly. Diminished vibration in toes. Coordination is preserved on uyitcr-pa-tyoaqc testing. No dysmetria or tremor. Gait is preserved as well. I walked her only a few steps, though. IMPRESSION: The patient with multiple risk factors for cva such as diabetes, hypertension and dyslipidemia, presented with possible left upper extremity weakness but mostly complaining of cough and chest pain. Routine imaging of the brain with CAT scan shows calcified aneurysm. Forgot to mention that it was confirmed also on CT angiogram of the brain, where fusiform calcified aneurysmal dilation of the distal supraclinoid, right internal carotid artery 7 mm in diameter for approximately 12 mm segment was seen. MRI of the brain is pending to exclude or include diagnosis of acute stroke. Cardiology is on the case working up the patient's chest pain. So far, it does not seem to be related to ischemic changes. Please keep the patient euglycemic. Given the severity of intracranial atherosclerotic disease, it is okay to allow mildly elevated blood pressure. Please keep on the upper normal values. Try to avoid hypotension. I would increase the patient's statin 80 mg at bedtime. I am not sure why she is not on any antiplatelet therapy. Her CBC is within normal limits. She is a Jehov[employer] '[employer] and blood products should not be used, but I do not think that aspirin or Plavix is a blood product, though I am not sure. Usually for intracranial atherosclerotic disease with intracranial stenosis, treatment with double antiplatelets with aspirin and Plavix is suggested. I do not think that fusiform and calcified aneurysmal dilation of the artery would prevent my use of antiplatelet therapy, but I think it is reasonable to obtain consultation with neurosurgeon to confirm because I think that it is mostly saccular type of aneurysm which predisposes for rupture, but again I would hold until neurosurgical consultation. in that case, I will procrastinate with starting antiplatelet treatment, but rather get neurosurgeon to evaluate the patient for the risk for rupture of the aneurysm. Thank you very much for this interesting consultation. Dictated By: LIZETTE QuinteroV/ANNEMARIE Conf#: [id number] DID#: [id number] CC: CLAUDIA FOSTER MD;*EndCC* MTDD
[2017-03-25] MEDS: ACCU-CHEK XX SCH (02:00)
[2017-03-25] MEDS: LEVALBUTEROL (NEB) 0.63 MG/3 ML AMP HHN SCH ×4 (02:01→19:00)
[2017-03-25] MEDS: LEVOFLOXACIN 500 MG TAB PO SCH (05:53)
[2017-03-25] MEDS: LEVOTHYROXINE 50 MCG TAB PO SCH (05:53)
[2017-03-25 06:00] LABS: BASOPHIL # 0.1 10^3/ul (0.0-0.1); BASOPHILS % 0.8 % (0.0-2.0); EOSINOPHILS # 0.2 10^3/ul (0.0-0.5); HEMOGLOBIN 12.1 g/dl (12.0-16.0); LYMPHOCYTES # 1.3 10^3/ul (0.8-2.9); LYMPHOCYTES % 20.8 % (15.0-51.0); MEAN CORPUSCULAR HEMOGLOBIN 28.3 pg (29.0-33.0); MEAN CORPUSCULAR HGB CONC 32.7 g/dl (32.0-37.0); MEAN CORPUSCULAR VOLUME 86.7 fl (82.0-101.0); MEAN PLATELET VOLUME 10.7 fl (7.4-10.4); MONOCYTE # 0.6 10^3/ul (0.3-0.9); MONOCYTES % 9.6 % (0.0-11.0); NEUTROPHILS % 65.1 % (39.0-77.0); PLATELET COUNT 256 10^3/UL (140-415); RED BLOOD COUNT 4.27 10^6/ul (4.20-5.40); RED CELL DISTRIBUTION WIDTH 16.5 % (11.5-14.5); WHITE BLOOD COUNT 6.1 10^3/ul (4.8-10.8)
[2017-03-25 06:21] LABS: CALCIUM 8.8 mg/dl (8.4-10.2); CREATININE 0.48 mg/dl (0.44-1.00); POTASSIUM 4.4 mmol/L (3.5-5.1)
[2017-03-25] MEDS: INSULIN ASPART [NOVOLOG] 3 ML PEN SC SCH ×5 (07:55→22:47)
[2017-03-25] MEDS: FUROSEMIDE 20 MG TAB PO SCH (08:34)
[2017-03-25] MEDS: DILTIAZEM (CD) 240 MG CAP PO SCH (08:35)
[2017-03-25] MEDS: DOCUSATE SODIUM 100 MG CAP PO SCH ×2 (08:35→22:36)
[2017-03-25] MEDS: LOSARTAN 50 MG TAB PO SCH (08:35)
[2017-03-25] MEDS: METOPROLOL 25 MG TAB PO SCH ×2 (08:35→22:36)
[2017-03-25] MEDS: SALMETEROL/FLUTICASONE 250/50 INHA INH SCH ×2 (08:36→22:37)
--- NOTE | 2017-03-25 09:11 | CONS ---
Date/Time of Note Date/Time of Note DATE: 03/25/17 TIME: 09:09 Assessment/Plan Assessment/Plan Additional Assessment/Plan 1. Chest pain, assess for acute coronary syndrome with negative troponins x3 at this time, multiple cardiac risk factors.lexiscan this admit with no ischemia /NLEF. NL EF by echo and no sig valve abnl, mild-mod eff - no intervention planned 2. Abnormal electrocardiogram with T-wave flattening isolated to lead aVL. 3. Hypertension, labile, but currently under reasonable control- component of pain/nxiety - high now, add therapy 4. History of dyslipidemia. 5. Diabetes mellitus- on meds, primary follows 6. Probable upper respiratory infection, question bronchitis - on anti-Bx 7. History of hypothyroidism. 8. History of asthma, question chronic obstructive pulmonary disease 9. Pericardial [id number]-rcdu-glv by echo with no sign of tamponade 10. Aneursymal R carotid and extensive intracranial atherosclerosis Consultation Date/Type/Reason Admit Date/Time Mar 22, 2017 at 15:46 Initial Consult Date Type of Consultation: cardiology Referring Provider: CLAUDIA FOSTER MD 24 HR Interval Summary Free Text/Dictation NO acute events -= BP on hogh side - will add therapy ROS: No fever, no chills, no nausea, no vomiting, no diarrhea/constipation No recent weight changes No chest pain, no PND, no orthopnea + SOB, better No dizziness, blurred vision No thirst, no heat or cold intolerance Exam/Review of Systems Vital Signs Vitals Vital Signs Date Time Temp Pulse Resp B/P Pulse Ox O2 Delivery O2 Flow Rate FiO2 03/25/17 08:25 69 18 97 Nasal Cannula 1.5 03/25/17 07:39 98.0 186/81 03/25/17 02:01 28 Intake and Output 03/24/17 03/24/17 03/25/17 14:59 22:59 06:59 Intake Total 800 ml 600 ml Balance 800 ml 600 ml Exam General: WN/WD/NAD, AOx 3 HEENT: Unicetric/atraumatic/EOMI (follow commands) NECK: JVD elevated, no thyromegaly Lymph: no lymphadenopathy HEART: regular with no S3, II/ systolic murmur at apex LUNGS: Coarse sounds, wheezing ABD: soft, NT, ND, +BS : Intact Neuro: non focal SKIN: chronic changes EXT: trace edema Results Result Diagram: 03/25/17 0515 03/25/17 0515 Results 24 hrs Laboratory Tests Test 03/24/17 11:39 03/24/17 17:33 03/24/17 21:33 03/25/17 02:10 Bedside Glucose 197 118 182 133 Test 03/25/17 05:15 03/25/17 08:14 White Blood Count 6.1 Red Blood Count 4.27 Hemoglobin 12.1 Hematocrit 37.0 Mean Corpuscular Volume 86.7 Mean Corpuscular Hemoglobin 28.3 L Mean Corpuscular Hemoglobin Concent 32.7 Red Cell Distribution Width 16.5 H Platelet Count 256 Mean Platelet Volume 10.7 H Neutrophils % 65.1 Lymphocytes % 20.8 Monocytes % 9.6 Eosinophils % 3.0 Basophils % 0.8 Nucleated Red Blood Cells % 0.0 Neutrophils # 4.0 Lymphocytes # 1.3 Monocytes # 0.6 Eosinophils # 0.2 Basophils # 0.1 Nucleated Red Blood Cells # 0.0 Sodium Level 135 Potassium Level 4.4 Chloride Level 103 Carbon Dioxide Level 27 Anion Gap 9 Blood Urea Nitrogen 15 Creatinine 0.48 Glucose Level 148 Calcium Level 8.8 Bedside Glucose 122 Medications Medications Current Medications Diagnostic Test (Pha) (Accu-Chek) 1 ea 02 XX Last administered on 03/21/17 02: 35; Admin Dose 1 EA; Start 03/21/17 at 02:00 Diltiazem HCl (Cardizem Cd) 240 mg DAILY PO Last administered on 03/25/17 08: 35; Admin Dose 240 MG; Start 03/21/17 at 09:00 Furosemide (Lasix) 20 mg DAILY PO Last administered on 03/25/17 08:34; Admin Dose 20 MG; Start 03/21/17 at 09:00 Losartan Potassium (Cozaar) 100 mg DAILY PO Last administered on 03/25/17 08: 35; Admin Dose 100 MG; Start 03/21/17 at 09:00 Montelukast Sodium (Singulair) 10 mg HS PO Last administered on 03/24/17 21: 29; Admin Dose 10 MG; Start 03/20/17 at 21:00 Salmeterol Xinafoate/ Fluticasone (Advair 250/50 Diskus) 1 inh BID INH Last administered on 03/25/17 08:36; Admin Dose 1 INH; Start 03/20/17 at 21:00 Miscellaneous Information 1 ea NOTE XX ; Start 03/20/17 at 19:30 Glucose (Glutose) 15 gm Q15M PRN PO DECREASED GLUCOSE; Start 03/20/17 at 19:30 Glucose (Glutose) 22.5 gm Q15M PRN PO DECREASED GLUCOSE; Start 03/20/17 at 19: 30 Dextrose (D50w Syringe) 25 ml Q15M PRN IV DECREASED GLUCOSE; Start 03/20/17 at 19:30 Dextrose (D50w Syringe) 50 ml Q15M PRN IV DECREASED GLUCOSE; Start 03/20/17 at 19:30 Glucagon (Glucagen) 1 mg Q15M PRN IM DECREASED GLUCOSE; Start 03/20/17 at 19:30 Glucose (Glutose) 15 gm Q15M PRN BUCCAL DECREASED GLUCOSE; Start 03/20/17 at 19 :30 Hydralazine HCl (Apresoline) 10 mg Q6H PRN IV ELEVATED BLOOD PRESSURE Last administered on 03/24/17 09:04; Admin Dose 10 MG; Start 03/20/17 at 19:30 Metoprolol Tartrate (Lopressor) 25 mg BID PO Last administered on 03/25/17 08 :35; Admin Dose 25 MG; Start 03/21/17 at 21:00 Levofloxacin (Levaquin) 500 mg DAILY@06 PO Last administered on 03/25/17 05: 53; Admin Dose 500 MG; Start 03/22/17 at 06:00 Acetaminophen (Tylenol Tab) 650 mg Q4H PRN PO PAIN AND OR ELEVATED TEMP; Start 03/22/17 at 12:30 Docusate Sodium (Colace) 100 mg BID PO Last administered on 03/25/17 08:35; Admin Dose 100 MG; Start 03/23/17 at 21:00 Atorvastatin Calcium (Lipitor) 80 mg HS PO Last administered on 03/24/17 21: 29; Admin Dose 80 MG; Start 03/24/17 at 21:00 DARWIN BOSS MD Mar 25, 2017 09:11
--- NOTE | 2017-03-25 11:30 | CONS ---
Date/Time of Note Date/Time of Note DATE: 03/25/17 TIME: 11:28 Assessment/Plan Assessment/Plan Additional Assessment/Plan Diffuse Mult-focal atherosclerosis ICA, MCA, BRIM BUSTER Fusiform , calcified distal right ica aneurysm ( non-ruptured) No focal def. noted Plan No immediate Neurosurgical / Neuro endovascular intervention at this time given that aneurysm is already calcified. Will need out pt follow with Neuroendovascular Neurosurgeon for conventional 4 vessel cerebral angiogram at tertiary care center ([facility], [facility] , [facility], ) Neurology following discussed images and recommendations with pt. Soldering Machine Operator (Lulu) at bedside. Consultation Date/Type/Reason Admit Date/Time Mar 22, 2017 at 15:46 Date of Consultation: Mar 24, 2017 Type of Consultation: Neurosurgery Consult Note Reason for Consultation Right ICA Aneurysm Hx of Present Illness 66 y/o with history of Asthma and had breath treatment prior to admission with complaints of SOB . Pt admitted to [facility] for further evaluation. Imaging revealed pericardial effusion w/o tamponade . CT brain /CTA revealed diffuse multifocal atherosclerosis (ICA, MCA, BRIM BUSTER) and fusiform calcified Aneurysm to distal supraclinoid Right ICA (unruptured). Pt denies stroke like symptoms. pmh/psx: per hpi/chart meds: see med recon ros: per hpi/chart Social History Smoking Status: Never smoker Exam/Review of Systems Vital Signs Vitals Vital Signs Date Time Temp Pulse Resp B/P Pulse Ox O2 Delivery O2 Flow Rate FiO2 03/25/17 08:25 69 18 97 Nasal Cannula 1.5 03/25/17 07:39 98.0 186/81 03/25/17 02:01 28 Intake and Output 03/24/17 03/24/17 03/25/17 14:59 22:59 06:59 Intake Total 800 ml 600 ml Balance 800 ml 600 ml Exam Constitutional: alert Psych: no complaints Head: normocephalic Neck: supple Neurological: other (MS: AAOX4 CN; III-XII intact , no facial droop M: FC x 4, no focal def. noted. ) Results Result Diagram: 03/25/17 0515 03/25/17 0515 Results 24 hrs Laboratory Tests Test 03/24/17 11:39 03/24/17 17:33 03/24/17 21:33 03/25/17 02:10 Bedside Glucose 197 118 182 133 Test 03/25/17 05:15 03/25/17 08:14 03/25/17 11:19 White Blood Count 6.1 Red Blood Count 4.27 Hemoglobin 12.1 Hematocrit 37.0 Mean Corpuscular Volume 86.7 Mean Corpuscular Hemoglobin 28.3 L Mean Corpuscular Hemoglobin Concent 32.7 Red Cell Distribution Width 16.5 H Platelet Count 256 Mean Platelet Volume 10.7 H Neutrophils % 65.1 Lymphocytes % 20.8 Monocytes % 9.6 Eosinophils % 3.0 Basophils % 0.8 Nucleated Red Blood Cells % 0.0 Neutrophils # 4.0 Lymphocytes # 1.3 Monocytes # 0.6 Eosinophils # 0.2 Basophils # 0.1 Nucleated Red Blood Cells # 0.0 Sodium Level 135 Potassium Level 4.4 Chloride Level 103 Carbon Dioxide Level 27 Anion Gap 9 Blood Urea Nitrogen 15 Creatinine 0.48 Glucose Level 148 Calcium Level 8.8 Bedside Glucose 122 247 H Medications Medications Current Medications Diagnostic Test (Pha) (Accu-Chek) 1 ea 02 XX Last administered on 03/21/17 02: 35; Admin Dose 1 EA; Start 03/21/17 at 02:00 Diltiazem HCl (Cardizem Cd) 240 mg DAILY PO Last administered on 03/25/17 08: 35; Admin Dose 240 MG; Start 03/21/17 at 09:00 Furosemide (Lasix) 20 mg DAILY PO Last administered on 03/25/17 08:34; Admin Dose 20 MG; Start 03/21/17 at 09:00 Losartan Potassium (Cozaar) 100 mg DAILY PO Last administered on 03/25/17 08: 35; Admin Dose 100 MG; Start 03/21/17 at 09:00 Montelukast Sodium (Singulair) 10 mg HS PO Last administered on 03/24/17 21: 29; Admin Dose 10 MG; Start 03/20/17 at 21:00 Salmeterol Xinafoate/ Fluticasone (Advair 250/50 Diskus) 1 inh BID INH Last administered on 03/25/17 08:36; Admin Dose 1 INH; Start 03/20/17 at 21:00 Miscellaneous Information 1 ea NOTE XX ; Start 03/20/17 at 19:30 Glucose (Glutose) 15 gm Q15M PRN PO DECREASED GLUCOSE; Start 03/20/17 at 19:30 Glucose (Glutose) 22.5 gm Q15M PRN PO DECREASED GLUCOSE; Start 03/20/17 at 19: 30 Dextrose (D50w Syringe) 25 ml Q15M PRN IV DECREASED GLUCOSE; Start 03/20/17 at 19:30 Dextrose (D50w Syringe) 50 ml Q15M PRN IV DECREASED GLUCOSE; Start 03/20/17 at 19:30 Glucagon (Glucagen) 1 mg Q15M PRN IM DECREASED GLUCOSE; Start 03/20/17 at 19:30 Glucose (Glutose) 15 gm Q15M PRN BUCCAL DECREASED GLUCOSE; Start 03/20/17 at 19 :30 Hydralazine HCl (Apresoline) 10 mg Q6H PRN IV ELEVATED BLOOD PRESSURE Last administered on 03/24/17 09:04; Admin Dose 10 MG; Start 03/20/17 at 19:30 Metoprolol Tartrate (Lopressor) 25 mg BID PO Last administered on 03/25/17 08 :35; Admin Dose 25 MG; Start 03/21/17 at 21:00 Levofloxacin (Levaquin) 500 mg DAILY@06 PO Last administered on 03/25/17 05: 53; Admin Dose 500 MG; Start 03/22/17 at 06:00 Acetaminophen (Tylenol Tab) 650 mg Q4H PRN PO PAIN AND OR ELEVATED TEMP; Start 03/22/17 at 12:30 Docusate Sodium (Colace) 100 mg BID PO Last administered on 03/25/17 08:35; Admin Dose 100 MG; Start 03/23/17 at 21:00 Atorvastatin Calcium (Lipitor) 80 mg HS PO Last administered on 03/24/17 21: 29; Admin Dose 80 MG; Start 03/24/17 at 21:00 Nifedipine (Procardia Xl) 60 mg DAILY PO ; Start 03/26/17 at 09:00 MANSI KAM NP Mar 25, 2017 11:30
--- NOTE | 2017-03-25 16:28 | PN ---
Date/Time of Note Date/Time of Note DATE: 03/25/17 TIME: 16:15 Assessment/Plan VTE Prophylaxis VTE Prophylaxis Intervention: SCD's Lines/Catheters IV Catheter Type (from Nrs): Saline Lock Assessment/Plan Chief Complaint/Hosp Course No acute events overnight patient looks comfortable, pending MRI of the brain Assessment/Plan -Diffuse Mult-focal atherosclerosis ICA, MCA, EPIC PRELUDE ANALYST. Dr. Elmore is following in the neurosurgery consultation, no interventions planned. pt needs to follow-up with Neuroendovascular Neurosurgeon for conventional 4 vessel cerebral angiogram at tertiary care center ([facility], [facility] , [facility] Dr. Webber is following in neurology consultation. -Fusiform , calcified distal right ica aneurysm - Chest pain, rule out acute coronary syndrome. Troponin is negative 3. Dr. Moreno is called following in cardiology consultation. - Hypertension. - Diabetes mellitus with hemoglobin A1c 7.7. Continue Lantus and pre-meal NovoLog. - Hypothyroidism, TSH is within normal limits, continue Synthroid. - History of dyslipidemia. - History of asthma - Possible bronchitis, continue Levaquin. Further recommendations based on clinical course. Plan of care discussed with Dr. Lin. Problems: Exam/Review of Systems Vital Signs Vitals Vital Signs Date Time Temp Pulse Resp B/P Pulse Ox O2 Delivery O2 Flow Rate FiO2 03/25/17 16:11 69 03/25/17 15:55 99.2 20 166/78 96 03/25/17 13:57 Nasal Cannula 1.0 03/25/17 02:01 28 Intake and Output 03/24/17 03/24/17 03/25/17 15:00 23:00 07:00 Intake Total 800 ml 600 ml Balance 800 ml 600 ml Exam Constitutional: alert, oriented Head: normocephalic Neck: supple Respiratory: clear to auscultation Cardiovascular: nl pulses, regular rate and rhythm Gastrointestinal: non-tender, soft Extremities: normal pulses Results Result Diagram: 03/25/17 0515 03/25/17 0515 Results 24 hrs Laboratory Tests Test 03/24/17 17:33 03/24/17 21:33 03/25/17 02:10 03/25/17 05:15 Bedside Glucose 118 182 133 White Blood Count 6.1 Red Blood Count 4.27 Hemoglobin 12.1 Hematocrit 37.0 Mean Corpuscular Volume 86.7 Mean Corpuscular Hemoglobin 28.3 L Mean Corpuscular Hemoglobin Concent 32.7 Red Cell Distribution Width 16.5 H Platelet Count 256 Mean Platelet Volume 10.7 H Neutrophils % 65.1 Lymphocytes % 20.8 Monocytes % 9.6 Eosinophils % 3.0 Basophils % 0.8 Nucleated Red Blood Cells % 0.0 Neutrophils # 4.0 Lymphocytes # 1.3 Monocytes # 0.6 Eosinophils # 0.2 Basophils # 0.1 Nucleated Red Blood Cells # 0.0 Sodium Level 135 Potassium Level 4.4 Chloride Level 103 Carbon Dioxide Level 27 Anion Gap 9 Blood Urea Nitrogen 15 Creatinine 0.48 Glucose Level 148 Calcium Level 8.8 Test 03/25/17 08:14 03/25/17 11:19 Bedside Glucose 122 247 H Medications Medications Current Medications Diagnostic Test (Pha) (Accu-Chek) 1 ea 02 XX Last administered on 03/21/17 02: 35; Admin Dose 1 EA; Start 03/21/17 at 02:00 Diltiazem HCl (Cardizem Cd) 240 mg DAILY PO Last administered on 03/25/17 08: 35; Admin Dose 240 MG; Start 03/21/17 at 09:00 Furosemide (Lasix) 20 mg DAILY PO Last administered on 03/25/17 08:34; Admin Dose 20 MG; Start 03/21/17 at 09:00 Losartan Potassium (Cozaar) 100 mg DAILY PO Last administered on 03/25/17 08: 35; Admin Dose 100 MG; Start 03/21/17 at 09:00 Montelukast Sodium (Singulair) 10 mg HS PO Last administered on 03/24/17 21: 29; Admin Dose 10 MG; Start 03/20/17 at 21:00 Salmeterol Xinafoate/ Fluticasone (Advair 250/50 Diskus) 1 inh BID INH Last administered on 03/25/17 08:36; Admin Dose 1 INH; Start 03/20/17 at 21:00 Miscellaneous Information 1 ea NOTE XX ; Start 03/20/17 at 19:30 Glucose (Glutose) 15 gm Q15M PRN PO DECREASED GLUCOSE; Start 03/20/17 at 19:30 Glucose (Glutose) 22.5 gm Q15M PRN PO DECREASED GLUCOSE; Start 03/20/17 at 19: 30 Dextrose (D50w Syringe) 25 ml Q15M PRN IV DECREASED GLUCOSE; Start 03/20/17 at 19:30 Dextrose (D50w Syringe) 50 ml Q15M PRN IV DECREASED GLUCOSE; Start 03/20/17 at 19:30 Glucagon (Glucagen) 1 mg Q15M PRN IM DECREASED GLUCOSE; Start 03/20/17 at 19:30 Glucose (Glutose) 15 gm Q15M PRN BUCCAL DECREASED GLUCOSE; Start 03/20/17 at 19 :30 Hydralazine HCl (Apresoline) 10 mg Q6H PRN IV ELEVATED BLOOD PRESSURE Last administered on 03/24/17 09:04; Admin Dose 10 MG; Start 03/20/17 at 19:30 Metoprolol Tartrate (Lopressor) 25 mg BID PO Last administered on 03/25/17 08 :35; Admin Dose 25 MG; Start 03/21/17 at 21:00 Levofloxacin (Levaquin) 500 mg DAILY@06 PO Last administered on 03/25/17 05: 53; Admin Dose 500 MG; Start 03/22/17 at 06:00 Acetaminophen (Tylenol Tab) 650 mg Q4H PRN PO PAIN AND OR ELEVATED TEMP; Start 03/22/17 at 12:30 Docusate Sodium (Colace) 100 mg BID PO Last administered on 03/25/17 08:35; Admin Dose 100 MG; Start 03/23/17 at 21:00 Atorvastatin Calcium (Lipitor) 80 mg HS PO Last administered on 03/24/17 21: 29; Admin Dose 80 MG; Start 03/24/17 at 21:00 Nifedipine (Procardia Xl) 60 mg DAILY PO ; Start 03/26/17 at 09:00 ANA MARIA JOSHI Mar 25, 2017 16:25
[2017-03-25] MEDS: MONTELUKAST 10 MG TAB PO SCH (22:35)
[2017-03-25] MEDS: ACETAMINOPHEN 325 MG TAB PO PRN (22:35)
[2017-03-25] MEDS: ATORVASTATIN 80 MG TAB PO SCH (22:36)
[2017-03-25] MEDS: INSULIN GLARGINE [LANtus] 3 ML PEN SC SCH (22:55)
[2017-03-26] VITALS (11 sets, daily range): BP systolic 128–178; BP diastolic 60–77; PULSE 62–68; RESP 17–20
[2017-03-26] MEDS: LEVALBUTEROL (NEB) 0.63 MG/3 ML AMP HHN SCH ×4 (01:01→20:07)
[2017-03-26] MEDS: ACCU-CHEK XX SCH ×2 (01:32)
[2017-03-26] MEDS: LEVOFLOXACIN 500 MG TAB PO SCH (05:21)
[2017-03-26 06:44] LABS: BASOPHILS % 0.5 % (0.0-2.0); EOSINOPHILS # 0.2 10^3/ul (0.0-0.5); EOSINOPHILS % 2.3 % (0.0-7.0); HEMATOCRIT 35.9 % (37.0-47.0); HEMOGLOBIN 11.9 g/dl (12.0-16.0); LYMPHOCYTES % 12.4 % (15.0-51.0); MEAN CORPUSCULAR HEMOGLOBIN 28.5 pg (29.0-33.0); MEAN CORPUSCULAR HGB CONC 33.1 g/dl (32.0-37.0); MEAN CORPUSCULAR VOLUME 85.9 fl (82.0-101.0); MEAN PLATELET VOLUME 10.9 fl (7.4-10.4); MONOCYTE # 0.7 10^3/ul (0.3-0.9); NEUTROPHIL # 6.4 10^3/ul (1.6-7.5); NEUTROPHILS % 76.2 % (39.0-77.0); PLATELET COUNT 236 10^3/UL (140-415); RED BLOOD COUNT 4.18 10^6/ul (4.20-5.40); RED CELL DISTRIBUTION WIDTH 16.3 % (11.5-14.5); WHITE BLOOD COUNT 8.3 10^3/ul (4.8-10.8)
[2017-03-26 07:08] LABS: CALCIUM 8.8 mg/dl (8.4-10.2); CREATININE 0.49 mg/dl (0.44-1.00); POTASSIUM 4.3 mmol/L (3.5-5.1)
--- NOTE | 2017-03-26 07:38 | RADRPT ---
PROCEDURE: MR Brain without contrast. CLINICAL INDICATION: Acute neurologic deficit, evaluate for stroke. Left arm weakness. TECHNIQUE: An MRI of the brain was performed on a GE short bore high-definition 3 rojelio scanner ut ilizing the following sequences: Sagittal and axial T1 weighted, axial T2 weighted, axial FLAIR, cor onal GRE, and axial diffusion weighted with ADC mapping. COMPARISON: CT BRAIN 03/22/2017 and CTA brain 03/23/2017. FINDINGS: No high signal abnormalities are seen on the diffusion-weighted images to suggest the presence of ac [place] ischemia or recent infarct. There is no evidence of intracranial hemorrhage, mass effect, or mi dline shift. No extra-axial fluid collections are seen. Mild age related diffuse volume loss is ev ident. Increased T2-weighted/FLAIR signal intensity is noted within the periventricular and deep wh ite matter, consistent with mild microvascular ischemic disease. The signal intensity is normal wit hin the brainstem and cerebellum. No hypointense signal abnormalities are seen on the GRE images to suggest the presence of blood degradation products. There is a prominent flow void in the region of the right supraclinoid carotid artery, compatible with the fusiform aneurysm seen on CTA. Normal fl ow voids are otherwise visible in the proximal intracranial arteries and dural sinuses, indicating p atency. The visualized paranasal sinuses are grossly clear. IMPRESSION: 1. No evidence of acute intracranial pathology. 2. Mild age-related volume loss with mild microvascular ischemic disease in the periventricular and deep white matter. 3. Right supraclinoid carotid artery aneurysm, better assessed on the prior CTA. RPTAT: HJAH .Manda Serna MD, MD Date Time Electronically viewed and signed by .Manda Serna MD, MD on 03/26/2017 07:37 .H/
[2017-03-26] MEDS: INSULIN ASPART [NOVOLOG] 3 ML PEN SC SCH ×7 (07:55→20:38)
[2017-03-26] MEDS: LOSARTAN 50 MG TAB PO SCH (08:29)
[2017-03-26] MEDS: DOCUSATE SODIUM 100 MG CAP PO SCH ×2 (08:29→20:35)
[2017-03-26] MEDS: FUROSEMIDE 20 MG TAB PO SCH (08:29)
[2017-03-26] MEDS: METOPROLOL 25 MG TAB PO SCH ×2 (08:30→20:36)
[2017-03-26] MEDS: CLOPIDOGREL 75 MG TAB PO SCH (08:30)
[2017-03-26] MEDS: NIFEdipine (XL) 60 MG TAB PO SCH (08:30)
[2017-03-26] MEDS: LEVOTHYROXINE 50 MCG TAB PO SCH (08:30)
[2017-03-26] MEDS: DILTIAZEM (CD) 240 MG CAP PO SCH (08:31)
[2017-03-26] MEDS: SALMETEROL/FLUTICASONE 250/50 INHA INH SCH ×2 (08:32→20:35)
[2017-03-26] MEDS: ASPIRIN 81 MG TAB PO SCH (08:34)
--- NOTE | 2017-03-26 11:45 | CONS ---
Date/Time of Note Date/Time of Note DATE: 03/26/17 TIME: 11:43 Assessment/Plan Assessment/Plan Additional Assessment/Plan 1. Chest pain, assess for acute coronary syndrome with negative troponins x3 at this time, multiple cardiac risk factors.lexiscan this admit with no ischemia /NLEF. NL EF by echo and no sig valve abnl, mild-mod eff - no intervention planned 2. Abnormal electrocardiogram with T-wave flattening isolated to lead aVL - NO CP now 3. Hypertension, labile, but currently under reasonable control- component of pain/nxiety - high now, add therapy 4. History of dyslipidemia. 5. Diabetes mellitus- on meds, primary follows 6. Probable upper respiratory infection, question bronchitis - on anti-Bx 7. History of hypothyroidism. 8. History of asthma, question chronic obstructive pulmonary disease 9. Pericardial [id number]-[id number] by echo with no sign of tamponade 10. Aneursymal R carotid and extensive intracranial atherosclerosis - had MRI, neuro follows Consultation Date/Type/Reason Admit Date/Time Mar 22, 2017 at 15:46 Type of Consultation: Neurosurgery Consult Note Referring Provider: CLAUDIA FOSTER MD 24 HR Interval Summary Free Text/Dictation No acute cardiac issues - will monitor clinically. ROS: No fever, no chills, no nausea, no vomiting, no diarrhea/constipation No recent weight changes No chest pain, no PND, no orthopnea No dizziness, blurred vision No thirst, no heat or cold intolerance Exam/Review of Systems Vital Signs Vitals Vital Signs Date Time Temp Pulse Resp B/P Pulse Ox O2 Delivery O2 Flow Rate FiO2 03/26/17 08:14 98.1 71 17 178/77 96 03/26/17 08:00 Nasal Cannula 2.0 03/26/17 08:00 24 Intake and Output 03/25/17 03/25/17 03/26/17 14:59 22:59 06:59 Intake Total 1000 ml 560 ml Balance 1000 ml 560 ml Exam General: WN/WD/NAD, AOx 2-3 HEENT: Unicetric/atraumatic/EOMI (follow commands) NECK: JVD elevated, no thyromegaly Lymph: no lymphadenopathy HEART: regular with no S3, II/ systolic murmur at apex LUNGS: Coarse sounds ABD: soft, NT, ND, +BS : Intact Neuro: non focal SKIN: chronic changes EXT: trace edema Results Result Diagram: 03/26/17 0625 03/26/17 0625 Results 24 hrs Laboratory Tests Test 03/25/17 17:52 03/25/17 22:47 03/26/17 06:25 03/26/17 07:54 Bedside Glucose 131 136 117 White Blood Count 8.3 # Red Blood Count 4.18 L Hemoglobin 11.9 L Hematocrit 35.9 L Mean Corpuscular Volume 85.9 Mean Corpuscular Hemoglobin 28.5 L Mean Corpuscular Hemoglobin Concent 33.1 Red Cell Distribution Width 16.3 H Platelet Count 236 Mean Platelet Volume 10.9 H Neutrophils % 76.2 Lymphocytes % 12.4 L Monocytes % 8.0 Eosinophils % 2.3 Basophils % 0.5 Nucleated Red Blood Cells % 0.0 Neutrophils # 6.4 Lymphocytes # 1.0 Monocytes # 0.7 Eosinophils # 0.2 Basophils # 0.0 Nucleated Red Blood Cells # 0.0 Sodium Level 136 Potassium Level 4.3 Chloride Level 102 Carbon Dioxide Level 28 Anion Gap 10 Blood Urea Nitrogen 18 Creatinine 0.49 Glucose Level 120 Calcium Level 8.8 Medications Medications Current Medications Diagnostic Test (Pha) (Accu-Chek) 1 ea 02 XX Last administered on 03/21/17 02: 35; Admin Dose 1 EA; Start 03/21/17 at 02:00 Diltiazem HCl (Cardizem Cd) 240 mg DAILY PO Last administered on 03/26/17 08: 31; Admin Dose 240 MG; Start 03/21/17 at 09:00 Furosemide (Lasix) 20 mg DAILY PO Last administered on 03/26/17 08:29; Admin Dose 20 MG; Start 03/21/17 at 09:00 Losartan Potassium (Cozaar) 100 mg DAILY PO Last administered on 03/26/17 08: 29; Admin Dose 100 MG; Start 03/21/17 at 09:00 Montelukast Sodium (Singulair) 10 mg HS PO Last administered on 03/25/17 22: 35; Admin Dose 10 MG; Start 03/20/17 at 21:00 Salmeterol Xinafoate/ Fluticasone (Advair 250/50 Diskus) 1 inh BID INH Last administered on 03/26/17 08:32; Admin Dose 1 INH; Start 03/20/17 at 21:00 Miscellaneous Information 1 ea NOTE XX ; Start 03/20/17 at 19:30 Glucose (Glutose) 15 gm Q15M PRN PO DECREASED GLUCOSE; Start 03/20/17 at 19:30 Glucose (Glutose) 22.5 gm Q15M PRN PO DECREASED GLUCOSE; Start 03/20/17 at 19: 30 Dextrose (D50w Syringe) 25 ml Q15M PRN IV DECREASED GLUCOSE; Start 03/20/17 at 19:30 Dextrose (D50w Syringe) 50 ml Q15M PRN IV DECREASED GLUCOSE; Start 03/20/17 at 19:30 Glucagon (Glucagen) 1 mg Q15M PRN IM DECREASED GLUCOSE; Start 03/20/17 at 19:30 Glucose (Glutose) 15 gm Q15M PRN BUCCAL DECREASED GLUCOSE; Start 03/20/17 at 19 :30 Hydralazine HCl (Apresoline) 10 mg Q6H PRN IV ELEVATED BLOOD PRESSURE Last administered on 03/24/17 09:04; Admin Dose 10 MG; Start 03/20/17 at 19:30 Metoprolol Tartrate (Lopressor) 25 mg BID PO Last administered on 03/26/17 08 :30; Admin Dose 25 MG; Start 03/21/17 at 21:00 Levofloxacin (Levaquin) 500 mg DAILY@06 PO Last administered on 03/26/17 05: 21; Admin Dose 500 MG; Start 03/22/17 at 06:00 Acetaminophen (Tylenol Tab) 650 mg Q4H PRN PO PAIN AND OR ELEVATED TEMP Last administered on 03/25/17 22:35; Admin Dose 650 MG; Start 03/22/17 at 12:30 Docusate Sodium (Colace) 100 mg BID PO Last administered on 03/26/17 08:29; Admin Dose 100 MG; Start 03/23/17 at 21:00 Atorvastatin Calcium (Lipitor) 80 mg HS PO Last administered on 03/25/17 22: 36; Admin Dose 80 MG; Start 03/24/17 at 21:00 Nifedipine (Procardia Xl) 60 mg DAILY PO Last administered on 03/26/17 08:30 ; Admin Dose 60 MG; Start 03/26/17 at 09:00 Diagnostic Test (Pha) (Accu-Chek) 1 ea 02 XX ; Start 03/26/17 at 02:00 Insulin Glargine (Lantus) 18 unit DAILY@20 SC Last administered on 03/25/17 22:55; Admin Dose 18 UNIT; Start 03/25/17 at 20:00 Aspirin (Aspirin) 81 mg DAILY PO Last administered on 03/26/17 08:34; Admin Dose 81 MG; Start 03/26/17 at 09:00 Clopidogrel Bisulfate (plaVIX) 75 mg DAILY PO Last administered on 03/26/17 08:30; Admin Dose 75 MG; Start 03/26/17 at 09:00 DARWIN BOSS MD Mar 26, 2017 11:45
--- NOTE | 2017-03-26 12:04 | PN ---
Date/Time of Note Date/Time of Note DATE: 03/26/17 TIME: 11:58 Assessment/Plan VTE Prophylaxis VTE Prophylaxis Intervention: SCD's Lines/Catheters IV Catheter Type (from Nrs): Saline Lock Assessment/Plan Chief Complaint/Hosp Course Patient complains of mild neck pain and left upper extremity pain denies shortness of breath denies chest pain. 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 Dr. Elmore is following in the neurosurgery consultation, no interventions planned. Pt needs to follow-up with Neuroendovascular Neurosurgeon for conventional 4 vessel cerebral angiogram at tertiary care center ([facility], [facility] , [facility]). Dr. Webber is following in neurology consultation. Patient is started on aspirin and Plavix, discussed with neurosurgery. 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 Dr. Oliver is asked to see patient in vascular surgery consultation - Chest pain, rule out acute coronary syndrome. Troponin is negative 3. Dr. Moreno is called following in cardiology consultation. - Hypertension. - Diabetes mellitus with hemoglobin A1c 7.7. Continue Lantus and pre-meal NovoLog. - Hypothyroidism, TSH is within normal limits, continue Synthroid. - History of dyslipidemia. - History of asthma - Possible bronchitis, continue Levaquin. Further recommendations based on clinical course. Plan of care discussed with Dr. Lin. Problems: Exam/Review of Systems Vital Signs Vitals Vital Signs Date Time Temp Pulse Resp B/P Pulse Ox O2 Delivery O2 Flow Rate FiO2 03/26/17 08:14 98.1 71 17 178/77 96 03/26/17 08:00 Nasal Cannula 2.0 03/26/17 08:00 24 Intake and Output 03/25/17 03/25/17 03/26/17 14:59 22:59 06:59 Intake Total 1000 ml 560 ml Balance 1000 ml 560 ml Exam Constitutional: alert, oriented Head: normocephalic Neck: supple Respiratory: clear to auscultation Cardiovascular: nl pulses, regular rate and rhythm Gastrointestinal: non-tender, soft Extremities: normal pulses Results Result Diagram: 03/26/17 0625 03/26/17 0625 Results 24 hrs Laboratory Tests Test 03/25/17 17:52 03/25/17 22:47 03/26/17 06:25 03/26/17 07:54 Bedside Glucose 131 136 117 White Blood Count 8.3 # Red Blood Count 4.18 L Hemoglobin 11.9 L Hematocrit 35.9 L Mean Corpuscular Volume 85.9 Mean Corpuscular Hemoglobin 28.5 L Mean Corpuscular Hemoglobin Concent 33.1 Red Cell Distribution Width 16.3 H Platelet Count 236 Mean Platelet Volume 10.9 H Neutrophils % 76.2 Lymphocytes % 12.4 L Monocytes % 8.0 Eosinophils % 2.3 Basophils % 0.5 Nucleated Red Blood Cells % 0.0 Neutrophils # 6.4 Lymphocytes # 1.0 Monocytes # 0.7 Eosinophils # 0.2 Basophils # 0.0 Nucleated Red Blood Cells # 0.0 Sodium Level 136 Potassium Level 4.3 Chloride Level 102 Carbon Dioxide Level 28 Anion Gap 10 Blood Urea Nitrogen 18 Creatinine 0.49 Glucose Level 120 Calcium Level 8.8 Medications Medications Current Medications Diagnostic Test (Pha) (Accu-Chek) 1 ea 02 XX Last administered on 03/21/17 02: 35; Admin Dose 1 EA; Start 03/21/17 at 02:00 Diltiazem HCl (Cardizem Cd) 240 mg DAILY PO Last administered on 03/26/17 08: 31; Admin Dose 240 MG; Start 03/21/17 at 09:00 Furosemide (Lasix) 20 mg DAILY PO Last administered on 03/26/17 08:29; Admin Dose 20 MG; Start 03/21/17 at 09:00 Losartan Potassium (Cozaar) 100 mg DAILY PO Last administered on 03/26/17 08: 29; Admin Dose 100 MG; Start 03/21/17 at 09:00 Montelukast Sodium (Singulair) 10 mg HS PO Last administered on 03/25/17 22: 35; Admin Dose 10 MG; Start 03/20/17 at 21:00 Salmeterol Xinafoate/ Fluticasone (Advair 250/50 Diskus) 1 inh BID INH Last administered on 03/26/17 08:32; Admin Dose 1 INH; Start 03/20/17 at 21:00 Miscellaneous Information 1 ea NOTE XX ; Start 03/20/17 at 19:30 Glucose (Glutose) 15 gm Q15M PRN PO DECREASED GLUCOSE; Start 03/20/17 at 19:30 Glucose (Glutose) 22.5 gm Q15M PRN PO DECREASED GLUCOSE; Start 03/20/17 at 19: 30 Dextrose (D50w Syringe) 25 ml Q15M PRN IV DECREASED GLUCOSE; Start 03/20/17 at 19:30 Dextrose (D50w Syringe) 50 ml Q15M PRN IV DECREASED GLUCOSE; Start 03/20/17 at 19:30 Glucagon (Glucagen) 1 mg Q15M PRN IM DECREASED GLUCOSE; Start 03/20/17 at 19:30 Glucose (Glutose) 15 gm Q15M PRN BUCCAL DECREASED GLUCOSE; Start 03/20/17 at 19 :30 Hydralazine HCl (Apresoline) 10 mg Q6H PRN IV ELEVATED BLOOD PRESSURE Last administered on 03/24/17 09:04; Admin Dose 10 MG; Start 03/20/17 at 19:30 Metoprolol Tartrate (Lopressor) 25 mg BID PO Last administered on 03/26/17 08 :30; Admin Dose 25 MG; Start 03/21/17 at 21:00 Levofloxacin (Levaquin) 500 mg DAILY@06 PO Last administered on 03/26/17 05: 21; Admin Dose 500 MG; Start 03/22/17 at 06:00 Acetaminophen (Tylenol Tab) 650 mg Q4H PRN PO PAIN AND OR ELEVATED TEMP Last administered on 03/25/17 22:35; Admin Dose 650 MG; Start 03/22/17 at 12:30 Docusate Sodium (Colace) 100 mg BID PO Last administered on 03/26/17 08:29; Admin Dose 100 MG; Start 03/23/17 at 21:00 Atorvastatin Calcium (Lipitor) 80 mg HS PO Last administered on 03/25/17 22: 36; Admin Dose 80 MG; Start 03/24/17 at 21:00 Nifedipine (Procardia Xl) 60 mg DAILY PO Last administered on 03/26/17 08:30 ; Admin Dose 60 MG; Start 03/26/17 at 09:00 Diagnostic Test (Pha) (Accu-Chek) 1 ea 02 XX ; Start 03/26/17 at 02:00 Insulin Glargine (Lantus) 18 unit DAILY@20 SC Last administered on 03/25/17 22:55; Admin Dose 18 UNIT; Start 03/25/17 at 20:00 Aspirin (Aspirin) 81 mg DAILY PO Last administered on 03/26/17 08:34; Admin Dose 81 MG; Start 03/26/17 at 09:00 Clopidogrel Bisulfate (plaVIX) 75 mg DAILY PO Last administered on 03/26/17 08:30; Admin Dose 75 MG; Start 03/26/17 at 09:00 ANA MARIA JOSHI Mar 26, 2017 12:04
--- NOTE | 2017-03-26 20:05 | CONS ---
DATE OF ADMISSION: 03/22/2017 DATE OF CONSULTATION: 03/25/2017 VASCULAR SURGERY CONSULTATION Dear Doctors: Ms. Valenzuela is a 66-year-old female who presented to [facility] secondary to chest p ain, shortness of breath, and during her workup over the past few days, the patient had mentioned th at she is having some numbness and change in sensation over her left shoulder and felt weakness of h er left upper extremity. At this time, the patient underwent a TIA workup in which a CT scan of her head was obtained that did not identify any acute infarcts; however, the patient did have supraclin oid internal carotid artery aneurysm. Subsequently, the patient underwent a carotid ultrasound whic h identified having a right internal carotid artery stenosis of 50% to 69%. The patient also underw ent a CT angiography of the head that identified aneurysmal dilatation of the distal supraclinoid ri ght internal carotid artery measuring about 7.1 mm in diameter. Subsequently, a vascular surgery co nsultation was obtained for further evaluation. Upon our discussion with the patient today, she den ies shortness of breath, chest pain, nausea, vomiting, fever or chills. She denies any amaurosis fu gax, bilateral upper extremity numbness or weakness or sensation loss and denies any bilateral lower extremity weakness, sensation loss or paralysis. REVIEW OF SYSTEMS: A 14-point review performed, negative except what is mentioned in the HPI. PAST MEDICAL HISTORY: Entails hypertension, diabetes, asthma, morbidly obese with BMI of 31.8, righ t carotid stenosis. ALLERGIES: 1. PENICILLIN. 2. AMOXICILLIN. 3. FAMOTIDINE. SOCIAL HISTORY: Denies tobacco, alcohol or illicit drug use. FAMILY HISTORY: Positive for carotid artery stenosis. PAST SURGICAL HISTORY: Has had a hysterectomy, colon resection with colostomy reversal, right breas t lumpectomy. PHYSICAL EXAMINATION: GENERAL: Alert and oriented x3, no apparent distress. HEENT: Normocephalic, atraumatic. Mucosa moist. NECK: Supple. No carotid bruit. PULMONARY: Clear to auscultation bilaterally. No crackles. CARDIOVASCULAR: S1, S2 present. No murmurs. NEUROLOGIC: Cranial nerves II-XII are intact. ABDOMEN: Soft, nontender, nondistended. Bowel sounds positive. Truncal obesity. RIGHT LOWER EXTREMITY: Palpable femoral pulse, faint pedal pulse. Motor and sensory intact. Capil denis refill 3 seconds. LEFT LOWER EXTREMITY: Palpable femoral pulse, faint pedal pulse. Motor and sensory intact. Capill heena refill 3 seconds. ASSESSMENT AND PLAN: 1. Right carotid artery stenosis, asymptomatic: It seems that the patient has an asymptomatic righ t carotid artery stenosis of 50% to 69%. At the moment, no vascular surgery intervention is recomme nded. Recommended to the patient to optimize her vascular status (BP meds, diet, nutrition, exercis e, sugar control, antiplatelets). 2. Right carotid artery supraclinoid aneurysm: It seems the patient has an intracranial internal c arotid artery aneurysm in which would recommend neurosurgery evaluation for further recommendations. At the moment, our neurology colleagues are following the patient and the recommendation would be for the patient to have a neuro-interventionalist evaluate the patient for possible intervention. 3. Optimize vascular status (BP meds, diet, nutrition, exercise, sugar control, antiplatelets). 4. Discussed findings, plan and management with the patient with a certified credit risk specialist and she und ersyumikods. Thank you for allowing us to partake in the care of your patient. Please call with any questions. Dictated By: ANDREA MCKEON/ANNEMARIE Conf#: [id number] DID#: [id number] CC: CLAUDIA FOSTER MD;*EndCC*
[2017-03-26] MEDS: MONTELUKAST 10 MG TAB PO SCH (20:36)
[2017-03-26] MEDS: ATORVASTATIN 80 MG TAB PO SCH (20:36)
[2017-03-26] MEDS: INSULIN GLARGINE [LANtus] 3 ML PEN SC SCH (20:39)
[2017-03-26] MEDS: ACETAMINOPHEN 325 MG TAB PO PRN (22:09)
[2017-03-27] VITALS (11 sets, daily range): BP systolic 107–139; BP diastolic 52–67; PULSE 55–75; RESP 16–21
[2017-03-27] MEDS: LEVALBUTEROL (NEB) 0.63 MG/3 ML AMP HHN SCH ×4 (01:11→20:09)
[2017-03-27] MEDS: ACCU-CHEK XX SCH ×2 (02:00)
[2017-03-27] MEDS: LEVOFLOXACIN 500 MG TAB PO SCH (05:54)
[2017-03-27] MEDS: INSULIN ASPART [NOVOLOG] 3 ML PEN SC SCH ×7 (07:55→20:50)
[2017-03-27 09:24] LABS: BASOPHIL # 0.1 10^3/ul (0.0-0.1); BASOPHILS % 0.7 % (0.0-2.0); EOSINOPHILS # 0.3 10^3/ul (0.0-0.5); EOSINOPHILS % 3.9 % (0.0-7.0); HEMOGLOBIN 12.4 g/dl (12.0-16.0); LYMPHOCYTES # 1.2 10^3/ul (0.8-2.9); LYMPHOCYTES % 17.1 % (15.0-51.0); MEAN CORPUSCULAR HEMOGLOBIN 28.1 pg (29.0-33.0); MEAN CORPUSCULAR HGB CONC 32.6 g/dl (32.0-37.0); MEAN CORPUSCULAR VOLUME 86.2 fl (82.0-101.0); MONOCYTE # 0.6 10^3/ul (0.3-0.9); NEUTROPHIL # 4.8 10^3/ul (1.6-7.5); NEUTROPHILS % 69.6 % (39.0-77.0); PLATELET COUNT 266 10^3/UL (140-415); RED BLOOD COUNT 4.41 10^6/ul (4.20-5.40); RED CELL DISTRIBUTION WIDTH 16.3 % (11.5-14.5); WHITE BLOOD COUNT 6.9 10^3/ul (4.8-10.8)
[2017-03-27] MEDS: DOCUSATE SODIUM 100 MG CAP PO SCH ×2 (09:34→20:52)
[2017-03-27] MEDS: ASPIRIN 81 MG TAB PO SCH (09:34)
[2017-03-27] MEDS: FUROSEMIDE 20 MG TAB PO SCH (09:34)
[2017-03-27] MEDS: LOSARTAN 50 MG TAB PO SCH (09:34)
[2017-03-27] MEDS: DILTIAZEM (CD) 240 MG CAP PO SCH (09:34)
[2017-03-27] MEDS: LEVOTHYROXINE 50 MCG TAB PO SCH (09:34)
[2017-03-27] MEDS: SALMETEROL/FLUTICASONE 250/50 INHA INH SCH ×2 (09:35→20:52)
[2017-03-27] MEDS: NIFEdipine (XL) 60 MG TAB PO SCH (09:35)
[2017-03-27] MEDS: METOPROLOL 25 MG TAB PO SCH ×2 (09:35→20:53)
[2017-03-27] MEDS: CLOPIDOGREL 75 MG TAB PO SCH (09:36)
[2017-03-27 09:42] LABS: CREATININE 0.46 mg/dl (0.44-1.00)
--- NOTE | 2017-03-27 09:55 | CONS ---
Date/Time of Note Date/Time of Note DATE: 03/27/17 TIME: 09:53 Assessment/Plan Assessment/Plan Additional Assessment/Plan 1. Chest pain, assess for acute coronary syndrome with negative troponins x3 at this time, multiple cardiac risk factors.lexiscan this admit with no ischemia /NLEF. NL EF by echo and no sig valve abnl, mild-mod eff - no intervention planned 2. Abnormal electrocardiogram with T-wave flattening isolated to lead aVL - NO CP now 3. Hypertension, labile, but currently under reasonable control- component of pain/nxiety - REASONABLY CONTROLLED. 4. History of dyslipidemia. 5. Diabetes mellitus- on meds, primary follows 6. Probable upper respiratory infection, question bronchitis - on anti-Bx 7. History of hypothyroidism. 8. History of asthma, question chronic obstructive pulmonary disease 9. Pericardial [id number] by echo with no sign of tamponade - NORMAL BY EXAM. 10. Aneursymal R carotid and extensive intracranial atherosclerosis - had MRI, neuro follows Consultation Date/Type/Reason Admit Date/Time Mar 22, 2017 at 15:46 Type of Consultation: Neurosurgery Consult Note Referring Provider: CLAUDIA FOSTER MD 24 HR Interval Summary Free Text/Dictation NO acute events - feels better - con't Rx. ROS: No fever, no chills, no nausea, no vomiting, no diarrhea/constipation No recent weight changes No chest pain, no PND, no orthopnea + SOB No dizziness, blurred vision No thirst, no heat or cold intolerance Exam/Review of Systems Vital Signs Vitals Vital Signs Date Time Temp Pulse Resp B/P Pulse Ox O2 Delivery O2 Flow Rate FiO2 03/27/17 08:41 74 18 98 Nasal Cannula 2.0 03/27/17 07:30 98.0 135/64 03/26/17 13:59 24 Intake and Output 03/26/17 03/26/17 03/27/17 15:00 23:00 07:00 Intake Total 950 ml 120 ml Balance 950 ml 120 ml Exam General: WN/WD/NAD, AOx 3 [place] HEENT: Unicetric/atraumatic/EOMI ( follow commands) NECK: JVD elevated, no thyromegaly Lymph: no lymphadenopathy HEART: regular with no S3, II/ systolic murmur at apex LUNGS: Coarse sounds ABD: soft, NT, ND, +BS : Intact Neuro: non focal SKIN: chronic changes EXT: trace edema Results Result Diagram: 03/27/17 0836 03/26/17 0625 Results 24 hrs Laboratory Tests Test 03/26/17 11:58 03/26/17 17:38 03/26/17 20:25 03/27/17 02:15 Bedside Glucose 125 130 275 H 133 Test 03/27/17 08:18 03/27/17 08:36 Bedside Glucose 139 White Blood Count 6.9 Red Blood Count 4.41 Hemoglobin 12.4 Hematocrit 38.0 Mean Corpuscular Volume 86.2 Mean Corpuscular Hemoglobin 28.1 L Mean Corpuscular Hemoglobin Concent 32.6 Red Cell Distribution Width 16.3 H Platelet Count 266 Mean Platelet Volume 11.0 H Neutrophils % 69.6 Lymphocytes % 17.1 Monocytes % 8.0 Eosinophils % 3.9 Basophils % 0.7 Nucleated Red Blood Cells % 0.0 Neutrophils # 4.8 Lymphocytes # 1.2 Monocytes # 0.6 Eosinophils # 0.3 Basophils # 0.1 Nucleated Red Blood Cells # 0.0 Medications Medications Current Medications Diagnostic Test (Pha) (Accu-Chek) 1 ea 02 XX Last administered on 03/21/17 02: 35; Admin Dose 1 EA; Start 03/21/17 at 02:00 Diltiazem HCl (Cardizem Cd) 240 mg DAILY PO Last administered on 03/27/17 09: 34; Admin Dose 240 MG; Start 03/21/17 at 09:00 Furosemide (Lasix) 20 mg DAILY PO Last administered on 03/27/17 09:34; Admin Dose 20 MG; Start 03/21/17 at 09:00 Losartan Potassium (Cozaar) 100 mg DAILY PO Last administered on 03/27/17 09: 34; Admin Dose 100 MG; Start 03/21/17 at 09:00 Montelukast Sodium (Singulair) 10 mg HS PO Last administered on 03/26/17 20: 36; Admin Dose 10 MG; Start 03/20/17 at 21:00 Salmeterol Xinafoate/ Fluticasone (Advair 250/50 Diskus) 1 inh BID INH Last administered on 03/27/17 09:35; Admin Dose 1 INH; Start 03/20/17 at 21:00 Miscellaneous Information 1 ea NOTE XX ; Start 03/20/17 at 19:30 Glucose (Glutose) 15 gm Q15M PRN PO DECREASED GLUCOSE; Start 03/20/17 at 19:30 Glucose (Glutose) 22.5 gm Q15M PRN PO DECREASED GLUCOSE; Start 03/20/17 at 19: 30 Dextrose (D50w Syringe) 25 ml Q15M PRN IV DECREASED GLUCOSE; Start 03/20/17 at 19:30 Dextrose (D50w Syringe) 50 ml Q15M PRN IV DECREASED GLUCOSE; Start 03/20/17 at 19:30 Glucagon (Glucagen) 1 mg Q15M PRN IM DECREASED GLUCOSE; Start 03/20/17 at 19:30 Glucose (Glutose) 15 gm Q15M PRN BUCCAL DECREASED GLUCOSE; Start 03/20/17 at 19 :30 Hydralazine HCl (Apresoline) 10 mg Q6H PRN IV ELEVATED BLOOD PRESSURE Last administered on 03/24/17 09:04; Admin Dose 10 MG; Start 03/20/17 at 19:30 Metoprolol Tartrate (Lopressor) 25 mg BID PO Last administered on 03/27/17 09 :35; Admin Dose 25 MG; Start 03/21/17 at 21:00 Levofloxacin (Levaquin) 500 mg DAILY@06 PO Last administered on 03/27/17 05: 54; Admin Dose 500 MG; Start 03/22/17 at 06:00 Acetaminophen (Tylenol Tab) 650 mg Q4H PRN PO PAIN AND OR ELEVATED TEMP Last administered on 03/26/17 22:09; Admin Dose 650 MG; Start 03/22/17 at 12:30 Docusate Sodium (Colace) 100 mg BID PO Last administered on 03/27/17 09:34; Admin Dose 100 MG; Start 03/23/17 at 21:00 Atorvastatin Calcium (Lipitor) 80 mg HS PO Last administered on 03/26/17 20: 36; Admin Dose 80 MG; Start 03/24/17 at 21:00 Nifedipine (Procardia Xl) 60 mg DAILY PO Last administered on 03/27/17 09:35 ; Admin Dose 60 MG; Start 03/26/17 at 09:00 Diagnostic Test (Pha) (Accu-Chek) 1 ea 02 XX ; Start 12/13/17 at 02:00 Insulin Glargine (Lantus) 18 unit DAILY@20 SC Last administered on 03/26/17 20:39; Admin Dose 18 UNIT; Start 03/25/17 at 20:00 Aspirin (Aspirin) 81 mg DAILY PO Last administered on 03/27/17 09:34; Admin Dose 81 MG; Start 03/26/17 at 09:00 Clopidogrel Bisulfate (plaVIX) 75 mg DAILY PO Last administered on 03/27/17 09:36; Admin Dose 75 MG; Start 03/26/17 at 09:00 DARWIN BOSS MD Mar 27, 2017 09:55
[2017-03-27] MEDS: ACETAMINOPHEN 325 MG TAB PO PRN (10:01)
--- NOTE | 2017-03-27 16:36 | PN ---
Date/Time of Note Date/Time of Note DATE: 03/27/17 TIME: 16:34 Assessment/Plan VTE Prophylaxis VTE Prophylaxis Intervention: SCD's Lines/Catheters IV [facility]from [facility] Urinary Cath still in place: No Assessment/Plan Chief Complaint/Hosp Course Patient complains of of dizziness, will decrease Procardia to 30 mg, continue to monitor blood pressure. PT evaluation, d/c planning. Assessment/Plan -Diffuse Mult-focal atherosclerosis ICA, MCA, COOK JELLY. Dr. Elmore is following in the neurosurgery consultation, no interventions planned. Pt needs to follow-up with Neuroendovascular Neurosurgeon for conventional 4 vessel cerebral angiogram at tertiary care center ([facility], [facility] , [facility]). Dr. Webber is following in neurology consultation. Patient is started on aspirin and Plavix, discussed with neurosurgery. 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 Dr. Oliver, vascular surgery consultation is appreciated, no interventions planned. - Chest pain, rule out acute coronary syndrome. Troponin is negative 3. Dr. Moreno is called following in cardiology consultation. - Hypertension. - Diabetes mellitus with hemoglobin A1c 7.7. Continue Lantus and pre-meal NovoLog. - Hypothyroidism, TSH is within normal limits, continue Synthroid. - History of dyslipidemia. - History of asthma - Possible bronchitis, continue Levaquin. Further recommendations based on clinical course. Plan of care discussed with Dr. Lin. Problems: Exam/Review of Systems Vital Signs Vitals Vital Signs Date Time Temp Pulse Resp B/P Pulse Ox O2 Delivery O2 Flow Rate FiO2 03/27/17 16:19 98.2 69 21 122/59 97 03/27/17 13:39 Nasal Cannula 2.0 03/26/17 13:59 24 Intake and Output 03/26/17 03/26/17 03/27/17 15:00 23:00 07:00 Intake Total 950 ml 120 ml Balance 950 ml 120 ml Exam Constitutional: alert, oriented Head: normocephalic Neck: supple Respiratory: clear to auscultation Cardiovascular: nl pulses, regular rate and rhythm Gastrointestinal: non-tender, soft Extremities: normal pulses Results Result Diagram: 03/27/17 0836 03/27/17 0836 Results 24 hrs Laboratory Tests Test 03/26/17 17:38 03/26/17 20:25 03/27/17 02:15 03/27/17 08:18 Bedside Glucose 130 275 H 133 139 Test 03/27/17 08:36 03/27/17 12:29 White Blood Count 6.9 Red Blood Count 4.41 Hemoglobin 12.4 Hematocrit 38.0 Mean Corpuscular Volume 86.2 Mean Corpuscular Hemoglobin 28.1 L Mean Corpuscular Hemoglobin Concent 32.6 Red Cell Distribution Width 16.3 H Platelet Count 266 Mean Platelet Volume 11.0 H Neutrophils % 69.6 Lymphocytes % 17.1 Monocytes % 8.0 Eosinophils % 3.9 Basophils % 0.7 Nucleated Red Blood Cells % 0.0 Neutrophils # 4.8 Lymphocytes # 1.2 Monocytes # 0.6 Eosinophils # 0.3 Basophils # 0.1 Nucleated Red Blood Cells # 0.0 Sodium Level 139 Potassium Level 4.0 Chloride Level 101 Carbon Dioxide Level 28 Anion Gap 14 Blood Urea Nitrogen 16 Creatinine 0.46 Glucose Level 145 Calcium Level 9.0 Bedside Glucose 112 Medications Medications Current Medications Diagnostic Test (Pha) (Accu-Chek) 1 ea 02 XX Last administered on 03/21/17 02: 35; Admin Dose 1 EA; Start 03/21/17 at 02:00 Diltiazem HCl (Cardizem Cd) 240 mg DAILY PO Last administered on 03/27/17 09: 34; Admin Dose 240 MG; Start 03/21/17 at 09:00 Furosemide (Lasix) 20 mg DAILY PO Last administered on 03/27/17 09:34; Admin Dose 20 MG; Start 03/21/17 at 09:00 Losartan Potassium (Cozaar) 100 mg DAILY PO Last administered on 03/27/17 09: 34; Admin Dose 100 MG; Start 03/21/17 at 09:00 Montelukast Sodium (Singulair) 10 mg HS PO Last administered on 03/26/17 20: 36; Admin Dose 10 MG; Start 03/20/17 at 21:00 Salmeterol Xinafoate/ Fluticasone (Advair 250/50 Diskus) 1 inh BID INH Last administered on 03/27/17 09:35; Admin Dose 1 INH; Start 03/20/17 at 21:00 Miscellaneous Information 1 ea NOTE XX ; Start 03/20/17 at 19:30 Glucose (Glutose) 15 gm Q15M PRN PO DECREASED GLUCOSE; Start 03/20/17 at 19:30 Glucose (Glutose) 22.5 gm Q15M PRN PO DECREASED GLUCOSE; Start 03/20/17 at 19: 30 Dextrose (D50w Syringe) 25 ml Q15M PRN IV DECREASED GLUCOSE; Start 03/20/17 at 19:30 Dextrose (D50w Syringe) 50 ml Q15M PRN IV DECREASED GLUCOSE; Start 03/20/17 at 19:30 Glucagon (Glucagen) 1 mg Q15M PRN IM DECREASED GLUCOSE; Start 03/20/17 at 19:30 Glucose (Glutose) 15 gm Q15M PRN BUCCAL DECREASED GLUCOSE; Start 03/20/17 at 19 :30 Hydralazine HCl (Apresoline) 10 mg Q6H PRN IV ELEVATED BLOOD PRESSURE Last administered on 03/24/17 09:04; Admin Dose 10 MG; Start 03/20/17 at 19:30 Metoprolol Tartrate (Lopressor) 25 mg BID PO Last administered on 03/27/17 09 :35; Admin Dose 25 MG; Start 03/21/17 at 21:00 Levofloxacin (Levaquin) 500 mg DAILY@06 PO Last administered on 03/27/17 05: 54; Admin Dose 500 MG; Start 03/22/17 at 06:00 Acetaminophen (Tylenol Tab) 650 mg Q4H PRN PO PAIN AND OR ELEVATED TEMP Last administered on 03/27/17 10:01; Admin Dose 650 MG; Start 03/22/17 at 12:30 Docusate Sodium (Colace) 100 mg BID PO Last administered on 03/27/17 09:34; Admin Dose 100 MG; Start 03/23/17 at 21:00 Atorvastatin Calcium (Lipitor) 80 mg HS PO Last administered on 03/26/17 20: 36; Admin Dose 80 MG; Start 03/24/17 at 21:00 Nifedipine (Procardia Xl) 60 mg DAILY PO Last administered on 03/27/17 09:35 ; Admin Dose 60 MG; Start 03/26/17 at 09:00 Diagnostic Test (Pha) (Accu-Chek) 1 ea 02 XX ; Start 03/26/17 at 02:00 Insulin Glargine (Lantus) 18 unit DAILY@20 SC Last administered on 03/26/17 20:39; Admin Dose 18 UNIT; Start 03/25/17 at 20:00 Aspirin (Aspirin) 81 mg DAILY PO Last administered on 03/27/17 09:34; Admin Dose 81 MG; Start 03/26/17 at 09:00 Clopidogrel Bisulfate (plaVIX) 75 mg DAILY PO Last administered on 03/27/17 09:36; Admin Dose 75 MG; Start 03/26/17 at 09:00 ANA MARIA JOSHI Mar 27, 2017 16:36
[2017-03-27] MEDS: ATORVASTATIN 80 MG TAB PO SCH (20:52)
[2017-03-27] MEDS: MONTELUKAST 10 MG TAB PO SCH (20:52)
[2017-03-27] MEDS: INSULIN GLARGINE [LANtus] 3 ML PEN SC SCH (21:04)
[2017-03-28] VITALS (8 sets, daily range): BP systolic 128–148; BP diastolic 63–73; PULSE 63–80; RESP 19
[2017-03-28] MEDS: ACCU-CHEK XX SCH ×2 (01:43)
[2017-03-28] MEDS: LEVALBUTEROL (NEB) 0.63 MG/3 ML AMP HHN SCH ×4 (01:49→20:00)
[2017-03-28] MEDS: LEVOTHYROXINE 50 MCG TAB PO SCH (06:33)
[2017-03-28] MEDS: LEVOFLOXACIN 500 MG TAB PO SCH (06:33)
[2017-03-28] MEDS: INSULIN ASPART [NOVOLOG] 3 ML PEN SC SCH ×6 (07:51→18:26)
[2017-03-28] MEDS: SALMETEROL/FLUTICASONE 250/50 INHA INH SCH (07:51)
[2017-03-28] MEDS: CLOPIDOGREL 75 MG TAB PO SCH (07:52)
[2017-03-28] MEDS: DOCUSATE SODIUM 100 MG CAP PO SCH (07:52)
[2017-03-28] MEDS: METOPROLOL 25 MG TAB PO SCH (07:53)
[2017-03-28] MEDS: DILTIAZEM (CD) 240 MG CAP PO SCH (07:53)
[2017-03-28] MEDS: FUROSEMIDE 20 MG TAB PO SCH (07:54)
[2017-03-28] MEDS: LOSARTAN 50 MG TAB PO SCH (07:54)
[2017-03-28] MEDS: ASPIRIN 81 MG TAB PO SCH (07:55)
[2017-03-28] MEDS ORDERED: NIFEdipine (XL) 30 MG TAB PO SCH (09:00)
[2017-03-28] MEDS ORDERED: ASPI81TA3 PO (15:03)
[2017-03-28] MEDS ORDERED: ATOR80TA75 PO (15:03)
[2017-03-28] MEDS ORDERED: DILT240C79 PO (15:03)
[2017-03-28] MEDS ORDERED: LAS20 PO (15:03)
[2017-03-28] MEDS ORDERED: CLOP75TA28 PO (15:03)
[2017-03-28] MEDS ORDERED: LOSA100T47 PO (15:03)
[2017-03-28] MEDS ORDERED: LANT3I SC (15:03)
[2017-03-28] MEDS ORDERED: NIFE30TA2 PO (15:03)
[2017-03-28] MEDS ORDERED: NOVO3I SC (15:03)
--- NOTE | 2017-03-28 15:07 | DS ---
Date/Time of Note Date/Time of Note DATE: 03/28/17 TIME: 15:06 Discharge Summary Admission/Discharge Info Admit Date/Time Mar 22, 2017 at 15:46 Discharge Date/Time Patient Condition: Stable Hx of Present Illness Patient is a 58-year-old female with asthma, hypertension, and diabetes who presents with chest pain and shortness of breath. The cough has been there for about 2 weeks but the chest pain and shortness of breath started this morning. She had a heavy sensation in her left arm. She does use oxygen at home. He went to her primary doctor today who gave her breathing treatment and sent her to the emergency department. Upon review of old medical records this is the patient's first visit to the ER. Hospital Course Patient complains of of dizziness, will decrease Procardia to 30 mg, continue to monitor blood pressure. PT evaluation, d/c planning. Assessment/Plan -Diffuse Mult-focal atherosclerosis ICA, MCA, [employer]. Dr. Elmore is following in the neurosurgery consultation, no interventions planned. Pt needs to follow-up with Neuroendovascular Neurosurgeon for conventional 4 vessel cerebral angiogram at tertiary care center ([facility], [facility] , [facility]). Dr. Webber is following in neurology consultation. Patient is started on aspirin and Plavix, discussed with neurosurgery. 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 Dr. Oliver, vascular surgery consultation is appreciated, no interventions planned. - Chest pain, rule out acute coronary syndrome. Troponin is negative 3. Dr. Moreno is called following in cardiology consultation. - Hypertension. - Diabetes mellitus with hemoglobin A1c 7.7. Continue Lantus and pre-meal NovoLog. - Hypothyroidism, TSH is within normal limits, continue Synthroid. - History of dyslipidemia. - History of asthma - Possible bronchitis, continue Levaquin. Further recommendations based on clinical course. Plan of care discussed with Dr. Lin. Home Meds Active Scripts Nifedipine (Procardia Xl) 30 Mg Tab.er.24, 30 MG PO DAILY for 30 Days, TAB Prov:ANA MARIA JOSHI 03/28/17 Insulin Glargine* (Lantus*) 100 Unit/Ml Soln, 18 UNIT SC DAILY@20 for 30 Days Prov:ANA MARIA JOSHI 03/28/17 Insulin Aspart* (Novolog Insulin Pen*) 100 Unit/Ml Soln, 6 UNIT SC WITH MEALS for 30 Days Prov:[facility] 03/28/17 Furosemide (Lasix) 20 Mg Tab, 20 MG PO DAILY for 30 Days, TAB Prov:[facility]03/28/17 Diltiazem Hcl* (Cardizem CD*) 240 Mg Cap.sr.24h, 240 MG PO DAILY for 30 Days Prov[facility] 03/28/17 Clopidogrel Bisulfate (Clopidogrel) 75 Mg Tablet, 75 MG PO DAILY for 30 Days, TAB Prov:03/28/17 Atorvastatin* (Atorvastatin*) 80 Mg Tablet, 80 MG PO HS for 30 Days, TAB Prov:03/28/17 Aspirin (Aspirin) 81 Mg Chew, 81 MG PO DAILY for 30 Days, TAB Prov:ANA MARIA 03/28/17 Losartan Potassium* (Cozaar*) 100 Mg Tablet, 100 MG PO DAILY for 30 Days, TAB Prov:03/28/17 Reported Medications Omeprazole* (Omeprazole*) 40 Mg Capsule.dr, 40 MG PO DAILY, #30 CAP 03/20/17 Albuterol Sulfate* (Albuterol Sulfate* Neb) 0.083%-3 Ml Neb, 1.25 MG NEB Q3H Y for WHEEZING AND SOB, EA 08/18/14 Diltiazem Hcl* (Taztia XT*) 240 Mg Capsule.sa, 240 MG PO DAILY, CAP 08/18/14 Montelukast Sodium* (Singulair*) 10 Mg Tablet, 10 MG PO HS, TAB 08/18/14 Metformin* (Glucophage*) 1,000 Mg Tablet, 1000 MG PO WITH BREAKFAST DINNE, TAB 08/18/14 Levothyroxine Sodium* (Levothyroxine Sodium*) 50 Mcg Tablet, 50 MCG PO AC BREAKFAST, TAB 08/18/14 Furosemide* (Lasix*) 20 Mg Tablet, 20 MG PO DAILY, TAB 08/18/14 Salmeterol Xinaf/Fluticasone* (Advair*) 250-50 Diskus Inhaler, 1 INH INH BID, INH 08/18/14 Atorvastatin Calcium* (Atorvastatin Calcium*) 20 Mg Tablet, 20 MG PO HS, TAB 08/18/14 Follow-up Plan f/up with PMD in 2 weeks, f/up with neurosurgery per case management arrangement for 4 vessel cerebral angio Primary Care Provider Not On Staff Doctor Time spent on discharge: > 30 minutes Pending Labs Laboratory Tests Test 03/27/17 17:36 03/27/17 20:44 03/28/17 07:49 03/28/17 11:36 Bedside Glucose 149mg/dL (70-220) 151mg/dL (70-220) 123mg/dL (70-220) 150mg/dL (70-220) ANA MARIA JOSHI Mar 28, 2017 15:07
--- NOTE | 2017-03-28 15:26 | CONS ---
Date/Time of Note Date/Time of Note DATE: 03/28/17 TIME: 15:17 Assessment/Plan Assessment/Plan Chief Complaint/Hosp Course IMPRESSION: 1. Chest pain, assess for acute coronary syndrome with negative troponins x3 at this time, multiple cardiac risk factors.lexiscan this admit with no ischemia /NLEF. NL EF by echo and no sig valve abnl, mild-mod eff 2. Abnormal electrocardiogram with T-wave flattening isolated to lead aVL. 3. Hypertension, labile, but currently under reasonable control- component of pain/nxiety 4. History of dyslipidemia. 5. Diabetes mellitus. 6. Probable upper respiratory infection, question bronchitis. 7. History of hypothyroidism. 8. History of asthma, question chronic obstructive pulmonary disease 9. Pericardial cpeaituz-yawn-lly by echo with no sign of tamponade 10. Aneursymal R carotid and extensive intracranial atherosclerosis s/p MRI Recc: -Tele -Continue current dilt/BB/losartan -Continue statin -Continue daily lasix PO -start hydralazine in lieu of procardia given already on diltiazem to assure good BP control Problems: Consultation Date/Type/Reason Admit Date/Time Mar 22, 2017 at 15:46 Initial Consult Date 03/22/2017 Type of Consultation: cardiology Reason for Consultation chest pain Referring Provider: CLAUDIA FOSTER MD Exam/Review of Systems Vital Signs Vitals Vital Signs Date Time Temp Pulse Resp B/P Pulse Ox O2 Delivery O2 Flow Rate FiO2 03/28/17 13:57 2.0 03/28/17 13:57 65 18 98 Nasal Cannula 03/28/17 11:35 98.1 128/63 03/26/17 13:59 24 Intake and Output 03/27/17 03/27/17 03/28/17 15:00 23:00 07:00 Intake Total 600 ml 550 ml Balance 600 ml 550 ml Exam Review of Systems: CONSTITUTIONAL: No fevers, chills. PULMONARY: No sob CARDIOVASCULAR: No chest pain/palpitations GASTROINTESTINAL: No nausea/vomiting. GENITOURINARY: No hematuria/dysuria. MUSCULOSKELETAL: No myagias/arthalgias. PSYCHIATRIC: The patient denies depression. NEUROLOGIC: No weakness Constitutional: alert, oriented Psych: no complaints Head: normocephalic ENMT: mucosa pink and moist Neck: jvd (9 cm water), supple Respiratory: diminished breath sounds (at bases/B) Cardiovascular: regular rate and rhythm Gastrointestinal: non-tender, soft Musculoskeletal: muscle tone (generalized weakness) Extremities: pitting pedal edema (Bilateral) Neurological: other (No focal deficits) Results Result Diagram: 03/27/17 0836 03/27/17 0836 Results 24 hrs Laboratory Tests Test 03/27/17 17:36 03/27/17 20:44 03/28/17 07:49 03/28/17 11:36 Bedside Glucose 149 151 123 150 Medications Medications Current Medications Diagnostic Test (Pha) (Accu-Chek) 1 ea 02 XX Last administered on 03/21/17 02: 35; Admin Dose 1 EA; Start 03/21/17 at 02:00 Diltiazem HCl (Cardizem Cd) 240 mg DAILY PO Last administered on 03/28/17 07: 53; Admin Dose 240 MG; Start 03/21/17 at 09:00 Furosemide (Lasix) 20 mg DAILY PO Last administered on 03/28/17 07:54; Admin Dose 20 MG; Start 03/21/17 at 09:00 Losartan Potassium (Cozaar) 100 mg DAILY PO Last administered on 03/28/17 07: 54; Admin Dose 100 MG; Start 03/21/17 at 09:00 Montelukast Sodium (Singulair) 10 mg HS PO Last administered on 03/27/17 20: 52; Admin Dose 10 MG; Start 03/20/17 at 21:00 Salmeterol Xinafoate/ Fluticasone (Advair 250/50 Diskus) 1 inh BID INH Last administered on 03/28/17 07:51; Admin Dose 1 INH; Start 03/20/17 at 21:00 Miscellaneous Information 1 ea NOTE XX ; Start 03/20/17 at 19:30 Glucose (Glutose) 15 gm Q15M PRN PO DECREASED GLUCOSE; Start 03/20/17 at 19:30 Glucose (Glutose) 22.5 gm Q15M PRN PO DECREASED GLUCOSE; Start 03/20/17 at 19: 30 Dextrose (D50w Syringe) 25 ml Q15M PRN IV DECREASED GLUCOSE; Start 03/20/17 at 19:30 Dextrose (D50w Syringe) 50 ml Q15M PRN IV DECREASED GLUCOSE; Start 03/20/17 at 19:30 Glucagon (Glucagen) 1 mg Q15M PRN IM DECREASED GLUCOSE; Start 03/20/17 at 19:30 Glucose (Glutose) 15 gm Q15M PRN BUCCAL DECREASED GLUCOSE; Start 03/20/17 at 19 :30 Hydralazine HCl (Apresoline) 10 mg Q6H PRN IV ELEVATED BLOOD PRESSURE Last administered on 03/24/17 09:04; Admin Dose 10 MG; Start 03/20/17 at 19:30 Metoprolol Tartrate (Lopressor) 25 mg BID PO Last administered on 03/28/17 07 :53; Admin Dose 25 MG; Start 03/21/17 at 21:00 Levofloxacin (Levaquin) 500 mg DAILY@06 PO Last administered on 03/28/17 06: 33; Admin Dose 500 MG; Start 03/22/17 at 06:00 Acetaminophen (Tylenol Tab) 650 mg Q4H PRN PO PAIN AND OR ELEVATED TEMP Last administered on 03/27/17 10:01; Admin Dose 650 MG; Start 03/22/17 at 12:30 Docusate Sodium (Colace) 100 mg BID PO Last administered on 03/28/17 07:52; Admin Dose 100 MG; Start 03/23/17 at 21:00 Atorvastatin Calcium (Lipitor) 80 mg HS PO Last administered on 03/27/17 20: 52; Admin Dose 80 MG; Start 03/24/17 at 21:00 Diagnostic Test (Pha) (Accu-Chek) 1 ea 02 XX ; Start 03/26/17 at 02:00 Insulin Glargine (Lantus) 18 unit DAILY@20 SC Last administered on 03/27/17 21:04; Admin Dose 18 UNIT; Start 03/25/17 at 20:00 Aspirin (Aspirin) 81 mg DAILY PO Last administered on 03/28/17 07:55; Admin Dose 81 MG; Start 03/26/17 at 09:00 Clopidogrel Bisulfate (plaVIX) 75 mg DAILY PO Last administered on 03/28/17 07:52; Admin Dose 75 MG; Start 03/26/17 at 09:00 Nifedipine (Procardia Xl) 30 mg DAILY PO Last administered on 03/28/17 08:03 ; Admin Dose 30 MG; Start 03/28/17 at 09:00 JUSTIN ARCE Mar 28, 2017 15:26
[2017-03-28] MEDS ORDERED: HYDR-3671 PO (15:31)
== END 2017-03-28 19:26 | disposition home health service (06) | DRG 191 ==
LOC: E/R 14:31 → TEL 16:24 → OBSVTOIN 03-22 15:46
PROVIDERS: ADMIT Internal Medicine; ATTEND Internal Medicine
DX: J44.9 Chronic obstructive pulmonary disease, unspecified (principal); I31.3 Pericardial effusion (noninflammatory); I27.20 Pulmonary hypertension, unspecified; I67.1 Cerebral aneurysm, nonruptured; I72.0 Aneurysm of carotid artery; I10 Essential (primary) hypertension; E11.9 Type 2 diabetes mellitus without complications; E78.5 Hyperlipidemia, unspecified; E03.9 Hypothyroidism, unspecified; I51.7 Cardiomegaly; R07.89 Other chest pain; I67.2 Cerebral atherosclerosis; R20.0 Anesthesia of skin
CPT/HCPCS: 36415; 70450; 70496; 70551; 71010; 76705; 78452; 80048; 80061; 80076; 82550; 82553; 82962; 83036; 83690; 84443; 84484; 85025; 85610; 85730; 93005; 93017; 93306; 93880; 94640; 94664; 97162; G0378; A9500; A9505; J0360; J1650; J1815; J2785; Q9967

== ENCOUNTER 2018-02-20 14:19 | Emergency (ER) | END 2018-02-20 22:53 | disposition home or self-care (01) ==

== ENCOUNTER 2018-08-20 13:15 | Inpatient (IN) | payer OTHER ==
[~2018-08-20] VITALS: Ht 157.5 cm; Wt 65.6 kg
[~2018-08-20 13:15] MED LIST changes: +ASPI-831 PO; +ATOR-2 PO; -ATOR20TA38 PO; +CLOP75TA28 PO; +DILT240C79 PO; -FURO-110 PO; +HYDR-3671 PO; +LANT3I SC; +LAS20 PO; +LEVO50TA7 PO; -LEVO50TA74 PO; +LOSA100T3 PO; -LOSA100T47 PO; +MUPI22OI2 TOP; +NOVO3I SC; -OMEP20CA9 PO; +OMEP40CA6 PO; +ONDA4TAB8 PO; -[UNRECOGNIZED DRUG - CODE] PO
[2018-08-20] MEDS ORDERED: ONDANSETRON 4 MG INJ IV STA (13:30)
[2018-08-20] MEDS ORDERED: ALBUTEROL 0.5% (NEB) 2.5 MG/0.5 ML AMP NEB STA (13:30)
[2018-08-20] MEDS ORDERED: VANCOMYCIN 1 GM (PMX) 250 ML IVPB ONE (13:30)
[2018-08-20] MEDS ORDERED: ACETAMINOPHEN 325 MG TAB PO STA (13:30)
[2018-08-20] MEDS ORDERED: SODIUM CHLORIDE 0.9% 1L BAG IV* STA (13:30)
[2018-08-20] MEDS ORDERED: IPRATROPIUM (NEB) 0.5 MG/2.5 ML AMP NEB STA (13:30)
[2018-08-20] MEDS ORDERED: LEVOFLOXACIN 750MG/D5W (PMX) 150 ML IVPB ONE (13:30)
[2018-08-20] MEDS ORDERED: IBUPROFEN 600 MG TAB PO ONE (14:00)
--- NOTE | 2018-08-20 14:03 | ERD ---
ER Documentation Chief Complaint Chief Complaint Pt with with BECKER , SOb, nausea and body ache sinc eyesterday. HPI This is a very pleasant 68-year-old female with a past medical history of hypertension diabetes asthma on home oxygen usually required on a nightly basis only, who presents to the emergency department complaining roughly 24 hours of diffuse myalgias. The patient had a tactile fever with shaking chills. She states her dyspnea has significantly worsened where she is needed oxygen for the past 24 hours continuously. She is on 2 L nasal cannula. She is felt very nauseous but has not experienced any emesis. She complains of frequency urgency and dysuria. She denies any abdominal pain. She did not take any antipyretics. She is had no recent sick contacts or hospitalizations. The patient's past surgical history includes a hysterectomy, colon resection with colostomy reversal and right breast lumpectomy. The patient went to an urgent care clinic today and was immediately instructed to come to the emergency department for further evaluation. In March 2017 the patient had been admitted to [facility] for a suspected TIA. 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 She was seen by vascular surgery at that time. The patient does indicate that she had a bandlike headache since the onset of her symptoms. She states this is not the worst headache of her life. She has never required intubation in the past for asthma. She did not utilize her inhaler prior to arrival. ROS All systems reviewed and are negative except as per history of present illness. Medications Home Meds Active Scripts Ondansetron Hcl* (Zofran*) 4 Mg Tablet, 4 MG PO Q8H PRN for NAUSEA AND/OR VOMITING, #30 TAB Prov:BRODIE RO MD 02/20/18 Mupirocin* (Bactroban*) 2% -22 Gram Oint...g., 1 APPLIC TOP BID for 10 Days, EA Prov:BRODIE RO MD 02/20/18 Hydralazine Hcl* (Hydralazine Hcl*) 25 Mg Tab, 25 MG PO Q8 for 30 Days, #90 TAB Prov:ANA MARIA JOSHI 03/28/17 Insulin Glargine* (Lantus*) 100 Unit/Ml Soln, 18 UNIT SC DAILY@20 for 30 Days Prov:NUBIA JOSHIA 03/28/17 Insulin Aspart* (Novolog Insulin Pen*) 100 Unit/Ml Soln, 6 UNIT SC WITH MEALS for 30 Days Prov:[facility] MAR[facility] 03/28/17 Furosemide (Lasix) 20 Mg Tab, 20 MG PO DAILY for 30 Days, TAB [facility] 03/28/17 Diltiazem Hcl* (Cardizem CD*) 240 Mg Cap.sr.24h, 240 MG PO DAILY for 30 Days [facility] 03/28/17 Clopidogrel Bisulfate (Clopidogrel) 75 Mg Tablet, 75 MG PO DAILY for 30 Days, TAB [facility] 03/28/17 Atorvastatin* (Atorvastatin*) 80 Mg Tablet, 80 MG PO HS for 30 Days, TAB [facility] 03/28/17 Aspirin (Aspirin) 81 Mg Chew, 81 MG PO DAILY for 30 Days, TAB [facility] 03/28/17 Losartan Potassium* (Cozaar*) 100 Mg Tablet, 100 MG PO DAILY for 30 Days, TAB [facility] 03/28/17 Reported Medications Omeprazole* (Omeprazole*) 40 Mg Capsule.dr, 40 MG PO DAILY, #30 CAP 03/20/17 Albuterol Sulfate* (Albuterol Sulfate* Neb) 0.083%-3 Ml Neb, 1.25 MG NEB Q3H PRN for WHEEZING AND SOB, EA 08/18/14 Montelukast Sodium* (Singulair*) 10 Mg Tablet, 10 MG PO HS, TAB 08/18/14 Metformin* (Glucophage*) 1,000 Mg Tablet, 1000 MG PO WITH BREAKFAST DINNE, TAB 08/18/14 Levothyroxine Sodium* (Levothyroxine Sodium*) 50 Mcg Tablet, 50 MCG PO AC BREAKFAST, TAB 08/18/14 Salmeterol Xinaf/Fluticasone* (Advair*) 250-50 Diskus Inhaler, 1 INH INH BID, INH 08/18/14 Allergies Allergies: Coded Allergies: Penicillins (Unverified Allergy, Unknown, rash, 03/20/17) amoxicillin (Unverified Allergy, Unknown, rash, 03/20/17) famotidine (Unverified Allergy, Unknown, rash, 03/20/17) PMhx/Soc History of Surgery: Yes (Cataract surgery, bilateral, Bowel resection) Anesthesia Reaction: No Hx Neurological Disorder: No Hx Respiratory Disorders: Yes (Asthma, Home 02 2 L, poss. COPD, PNA) Hx Cardiac Disorders: Yes (HPN, enlarged heart) Hx Psychiatric Problems: No Hx Miscellaneous Medical Probl: Yes (asthma, HTN, DM, hypothyroidism, dyslipidemia) Hx Alcohol Use: No Hx Substance Use: No Hx Tobacco Use: No Physical Exam Vitals Vital Signs Date Temp Pulse Resp B/P (MAP) Pulse Ox O2 O2 Flow FiO2 Time Delivery Rate 08/20/18 98.6 94 22 140/63 98 15:09 (88) 08/20/18 100.5 14:30 08/20/18 106 98 40 14:00 08/20/18 100.7 13:53 08/20/18 100.7 123 22 180/85 93 13:19 (116) Physical Exam Constitutional:Well-developed. Well-nourished. Patient in severe respiratory distress HEENT:Normocephalic. Atraumatic.Pupils were equal round reactive to light. Moist mucous membranes.No tonsillar exudates. Neck: No nuchal rigidity. No lymphadenopathy. No posterior cervical spine tenderness or step-offs. Respiratory: Using accessory muscles of respiration.Lungs were clear to auscultation bilaterally. No rhonchi. No rales. Bilateral wheezing. Cardiovascular: Tachycardic with regular rhythm.No murmurs. No rubs were appre ciated.S1, S2 normal. Distal pulses are palpable 2+ bilaterally. GI: Abdomen was soft. Nontender. Non Distended. No pulsatile abdominal masses or bruits. No rebound. No guarding. Bowel sounds were present and normal. Muscle skeletal: Full range of motion of both the upper and lower extremities bilaterally.Normal muscle tone.No assymetrical calf tenderness or swelling. Skin: No petechia, no purpura. No lesions on the palms or the soles of the feet. No maculopapular rash. Erythremia warmth tenderness over the medial aspect of the left calf with stage I ulcer, linear roughly 5 cm in length 0.5 cm in diameter with purulent drainage. NEURO: Patient was alert, awake, orientated x3.No facial droop. Gait observed and normal with no ataxia.Speech had regular rate and rhythm. No focal neurological deficits. Result Diagram: 08/20/18 1336 08/20/18 1336 Results 24 hrs Laboratory Tests Test 08/20/18 13:30 08/20/18 13:36 08/20/18 13:37 08/20/18 13:38 Blood Gas Blood arterial Specimen Source Arterial Blood 08/20/2018 2:20:1 Date Drawn 7 PM Arterial Blood 7.424 pH (Temp corrected) Arterial Blood 44.7 mmhg pCO2 (Temp correct) Arterial Blood 98.6 mmHG pO2 (Temp corrected) Arterial Blood 28.6 mmol/L HCO3 Arterial Blood 3.7 mmol/L Base Excess Arterial Blood 97.3 mmHG Oxygen Saturatio n Clark Test ACCEPTAB Arterial Blood Right Radial Gas Puncture Site Arterial 0.1 % Blood Carboxyhem oglobin Arterial Blood 0.3 % Methemoglobin Blood Gas A-a O2 135.2 mmHg Differential Oxyhemoglobin 96.9 % Percent Blood Gas 37.0 C Temperature Blood Gas 18.0 Respiration Rate Blood Gas Actual 30 Respiration Rate Blood Gas MASK - BIPAP Modality FiO2 40.0 % Blood Gas 26/08 IPAP/EPAP Ratio Blood Gas NZ Notified Whom Blood Gas 08/20/2018 2:30:0 Notified Time 1 PM White Blood 15.6 10^3/ul Count Red Blood Count 4.83 10^6/ul Hemoglobin 11.9 g/dl Hematocrit 37.9 % Mean Corpuscular 78.5 fl Volume Mean Corpuscular 24.6 pg Hemoglobin Mean Corpuscular 31.4 g/dl Hemoglobin Andreea nt Red Cell 17.3 % Distribution Width Platelet Count 414 10^3/UL Mean Platelet 10.2 fl Volume Immature 0.400 % Granulocytes % Neutrophils % 86.8 % Lymphocytes % 4.6 % Monocytes % 7.8 % Eosinophils % 0.1 % Basophils % 0.3 % Nucleated Red 0.0 /100WBC Blood Cells % Immature 0.060 10^3/ul Granulocytes # Neutrophils # 13.6 10^3/ul Lymphocytes # 0.7 10^3/ul Monocytes # 1.2 10^3/ul Eosinophils # 0.0 10^3/ul Basophils # 0.1 10^3/ul Nucleated Red 0.0 10^3/ul Blood Cells # Prothrombin Time 12.2 Sec Prothrombin Time 1.0 Ratio INR 0.89 International Normalized Ratio Activated 26.1 Sec Partial Thrombop last Time Sodium Level 137 mmol/L Potassium Level 4.0 mmol/L Chloride Level 98 mmol/L Carbon Dioxide 29 mmol/L Level Anion Gap 10 Blood Urea 14 mg/dl Nitrogen Creatinine 0.47 mg/dl Est Glomerular > 60 mL/min Filtrat Rate mL/min Glucose Level 159 mg/dl Calcium Level 9.4 mg/dl Total Bilirubin 0.4 mg/dl Direct Bilirubin 0.00 mg/dl Indirect 0.4 mg/dl Bilirubin Aspartate Amino 34 IU/L Transf (AST/SGOT ) Alanine 26 IU/L Aminotransferase (ALT/SGPT) Alkaline 192 IU/L Phosphatase Troponin I 0.015 ng/ml B-Type 1190 PG/ML Natriuretic Peptide Total Protein 7.8 g/dl Albumin 4.3 g/dl Globulin 3.50 g/dl Albumin/Globulin 1.22 Ratio Urine Color COLORLESS Urine Clarity CLEAR Urine pH 6.0 Urine Specific 1.006 [employer] [place] Urine Ketones NEGATIVE mg/dL Urine Nitrite NEGATIVE mg/dL Urine Bilirubin NEGATIVE mg/dL Urine NEGATIVE mg/dL Urobilinogen Urine Leukocyte NEGATIVE Tamie/ul Esterase Urine Hemoglobin NEGATIVE mg/dL Urine Glucose NEGATIVE mg/dL Urine Total NEGATIVE mg/dl Protein POC Venous 1.4 mmol/L Lactate Current Medications Medications Dose Sig/Cristobal Start Time Status Last (Trade) Ordered Route PRN Stop Time Admin Dose Reason Admin Sodium 1,960 ml BOLUS OVER 2 08/20/18 DC 08/20/18 Chloride HOURS STAT 13:30 08/20/18 13:53 (NS) IV* 13:34 650 mg ONCE STAT 08/20/18 DC 08/20/18 Acetaminophen PO 13:30 08/20/18 13:53 (Tylenol 13:34 Tab) Ondansetron 4 mg ONCE STAT 08/20/18 DC 08/20/18 HCl (Zofran IV 13:30 08/20/18 13:53 Inj) 13:34 Vancomycin 250 ml @ ONCE ONCE 08/20/18 HCl 125 mls/hr IVPB 13:30 08/20/18 15:29 150 ml @ ONCE ONCE 08/20/18 DC 08/20/18 Levofloxacin/ 100 mls/hr IVPB 13:30 08/20/18 13:53 Dextrose 14:59 Albuterol 10 mg ONCE STAT 08/20/18 DC (Proventil NEB 13:30 08/20/18 0.5% (Neb)) 13:34 Ipratropium 0.5 mg ONCE STAT 08/20/18 DC [place] NEB 13:30 08/20/18 (Atrovent 13:34 0.02% (Neb)) Clonidine 0.1 mg ONCE ONCE 08/20/18 DC (Catapres) PO 14:00 08/20/18 14:01 Ibuprofen 600 mg ONCE ONCE 08/20/18 DC (Motrin) PO 14:00 08/20/18 14:01 Procedures/MDM This is a 68-year-old female presented to the emergency department with low- grade fever and severe respiratory distress. Patient has known history of asthma. She did meet Sirs criteria but lactic acid was within normal limits. She however did receive a 30 cc/kg bolus of normal saline as she did show signs of clinical dehydration. The patient was given nebulizer treatments of albuterol and Atrovent. She was placed on noninvasive mechanical ventilation with a BiPAP. IV fluids were stopped once the patient's BNP became elevated. There is no pulmonary vascular congestion seen on the chest radiograph. Moderate cardiomegaly. Calcified aorta consistent with atherosclerotic disease. Bibasilar linear atelectatic changes. The patient did receive antibiotics as initially when she came in she was flagged as a possible code sepsis. She received antibiotics for sepsis of unclear etiology. Again as stated above the patient actually did not end up being septic as her lactic acid was normal. She received vancomycin and cefepime. Her primary care physician is Dr. Lin who kindly stated he will admit the patient. Arterial blood gas showed no severe respiratory acidosis. Her respiratory distress had significantly improved while on the BiPAP. There is no evidence of urinary tract infection on the urinalysis. Critical Care: Time: 50 minutes Treatments/Evaluations: Close monitoring and treatment of unstable vital signs, cardiorespiratory, and neurologic status, while maintaining tight balance of fluid, respiratory, and cardiac interventions. Time does not include performing any of the above billable procedures. Departure Diagnosis: Primary Impression: Asthma with severe exacerbation Additional Impression: Upper respiratory infection URI type: unspecified viral URI Qualified Codes: J06.9 - Acute upper respiratory infection, unspecified Condition: Serious AHMET MATTHEW MD August 20, 2018 14:01
[2018-08-20] MEDS ORDERED: LEVO75TA5 PO (15:28)
[2018-08-20] MEDS ORDERED: METF500T24 PO (15:28)
[2018-08-20] MEDS ORDERED: MONT10TA24 PO (15:29)
[2018-08-20] MEDS ORDERED: OMEP20CA16 PO (15:30)
[2018-08-20] MEDS ORDERED: NITR0.4T32 SL (15:30)
[2018-08-20] MEDS ORDERED: FURO20TA3 PO (15:30)
[2018-08-20] MEDS ORDERED: CLOP75TA19 PO (15:31)
[2018-08-20] MEDS ORDERED: DOCU-144 PO (15:31)
[2018-08-20] MEDS ORDERED: ONDA4TAB8 PO (15:31)
[2018-08-20] MEDS ORDERED: DILT240C79 PO (15:32)
[2018-08-20] MEDS ORDERED: HYDR-3672 PO (15:33)
[2018-08-20] MEDS ORDERED: SYMB80120 INHALATION (15:35)
[2018-08-20] MEDS ORDERED: ACETAMINOPHEN 325 MG TAB PO PRN ×2 (16:30→18:00)
[2018-08-20] MEDS ORDERED: ONDANSETRON 4 MG INJ IV PRN ×2 (16:30→18:00)
[2018-08-21] VITALS (13 sets, daily range): BP systolic 125–142; BP diastolic 60–75; PULSE 72–87; RESP 17–18; Ht 157.5 cm; Wt 65.6 kg
[2018-08-21] MEDS ORDERED: ALBUTEROL/IPRATROPIUM (NEB) 3 ML AMP HHN SCH
[2018-08-21] MEDS ORDERED: LEVOFLOXACIN 750MG/D5W (PMX) 150 ML IVPB SCH
[2018-08-21] MEDS ORDERED: DEXTROSE 50% 50 ML SYRINGE IV PRN ×2 (00:30)
[2018-08-21] MEDS ORDERED: GLUCOSE GEL 15 GRAM TUBE BUCCAL PRN (00:30)
[2018-08-21] MEDS ORDERED: GLUCAGON 1 MG INJ IM PRN (00:30)
[2018-08-21] MEDS ORDERED: GLUCOSE GEL 15 GRAM TUBE PO PRN ×2 (00:30)
[2018-08-21] MEDS: ALBUTEROL/IPRATROPIUM (NEB) 3 ML AMP HHN SCH ×4 (02:00→20:55)
[2018-08-21] MEDS: LEVOTHYROXINE 75 MCG TAB PO SCH (06:09)
[2018-08-21] MEDS: PANTOPRAZOLE (EC) 40 MG TAB PO SCH (06:09)
[2018-08-21] MEDS: ACETAMINOPHEN 325 MG TAB PO PRN (06:10)
[2018-08-21] MEDS: INSULIN ASPART [NOVOLOG] 3 ML PEN SC SCH ×4 (07:50→20:36)
[2018-08-21] MEDS: metFORMIN 500 MG TAB PO SCH ×2 (08:54→17:19)
[2018-08-21] MEDS ORDERED: NON-FORMULARY/PATIENT OWN MED (Omeprazole* 20 MG) PO SCH (09:00)
[2018-08-21] MEDS: CLOPIDOGREL 75 MG TAB PO SCH (09:31)
[2018-08-21] MEDS: METHYLPREDNISOLONE 40 MG INJ IV SCH ×2 (09:31→20:35)
[2018-08-21] MEDS: DILTIAZEM (CD) 240 MG CAP PO SCH (09:31)
[2018-08-21] MEDS: DOCUSATE SODIUM 100 MG CAP PO SCH ×2 (09:31→20:35)
[2018-08-21] MEDS: FUROSEMIDE 20 MG TAB PO SCH (09:32)
[2018-08-21] MEDS: ENOXAPARIN 40 MG/0.4 ML SYG SC SCH (09:38)
[2018-08-21] MEDS: NPH, HUMAN INSULIN ISOPHANE 3ML VIAL SC SCH ×2 (09:38→20:37)
[2018-08-21] MEDS: LEVOFLOXACIN 750MG/D5W (PMX) 150 ML IVPB SCH (14:35)
[2018-08-21] MEDS: MONTELUKAST 10 MG TAB PO SCH (20:34)
[2018-08-22] VITALS (12 sets, daily range): BP systolic 116–163; BP diastolic 55–74; PULSE 74–86; RESP 17–24
[2018-08-22] MEDS: ALBUTEROL/IPRATROPIUM (NEB) 3 ML AMP HHN SCH ×4 (02:09→20:39)
[2018-08-22] MEDS: PANTOPRAZOLE (EC) 40 MG TAB PO SCH (05:11)
[2018-08-22] MEDS: LEVOTHYROXINE 75 MCG TAB PO SCH (05:11)
[2018-08-22] MEDS: metFORMIN 500 MG TAB PO SCH ×2 (08:23→17:15)
[2018-08-22] MEDS: METHYLPREDNISOLONE 40 MG INJ IV SCH ×2 (08:25→20:18)
[2018-08-22] MEDS: CLOPIDOGREL 75 MG TAB PO SCH (08:27)
[2018-08-22] MEDS: DILTIAZEM (CD) 240 MG CAP PO SCH (08:28)
[2018-08-22] MEDS: FUROSEMIDE 20 MG TAB PO SCH (08:28)
[2018-08-22] MEDS: DOCUSATE SODIUM 100 MG CAP PO SCH ×2 (08:28→20:19)
[2018-08-22] MEDS: INSULIN ASPART [NOVOLOG] 3 ML PEN SC SCH ×4 (08:31→20:19)
[2018-08-22] MEDS: ENOXAPARIN 40 MG/0.4 ML SYG SC SCH (08:31)
[2018-08-22] MEDS: NPH, HUMAN INSULIN ISOPHANE 3ML VIAL SC SCH ×2 (08:32→20:45)
--- NOTE | 2018-08-22 12:17 | HP ---
Date/Time of Note Date/Time of Note DATE: 08/22/18 TIME: 12:17 Assessment/Plan VTE Prophylaxis Risk score (from Ns)>0 risk: 2 SCD applied (from [facility] [place]): No SCD contraindicated: other Pharmacological prophylaxis: LMWH Pharm contraindication: other Lines/Catheters IV Catheter Type (from [facility]): Saline Lock Assessment/Plan Assessment/Plan -Asthma with severe exacerbation - admit to [facility] - breathing treatments - admitting orders done - COPD - pulmonary toilet -Upper respiratory infection - cont Levaquin - Acute Headache- none at present - Multi drug allergy- PCN, Amoxicillin, Famotidine - HTN - stable -DM -Glycemic control - Hyperglycemia 2/2aove - LLE wound - wound care consult - wound care - cont antibiotic - Possible UTI - urine c/s pending - FU - Hypothyroidism -cont Synthroid - Dyslipidemia - cont Lipitor -- 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 - cardiology consult will be appreciated Patient seen in [facility] Dr Lin Result Diagram: 08/22/18 0601 08/22/18 0601 Results 24hrs Laboratory Tests Test 08/21/18 17:18 08/21/18 20:33 08/22/18 06:01 08/22/18 08:10 Bedside Glucose 235 H 132 203 White Blood Count 9.1 # Red Blood Count 4.23 Hemoglobin 10.4 L Hematocrit 33.0 L Mean Corpuscular 78.0 L Volume Mean Corpuscular 24.6 L Hemoglobin Mean Corpuscular 31.5 L Hemoglobin Concent Red Cell 17.3 H Distribution Width Platelet Count 342 Mean Platelet Volume 10.6 H Immature 0.400 Granulocytes % Neutrophils % 92.1 H Lymphocytes % 5.3 L Monocytes % 2.2 Eosinophils % 0.0 Basophils % 0.0 Nucleated Red Blood 0.0 Cells % Immature 0.040 H Granulocytes # Neutrophils # 8.4 H Lymphocytes # 0.5 L Monocytes # 0.2 L Eosinophils # 0.0 Basophils # 0.0 Nucleated Red Blood 0.0 Cells # Sodium Level 135 Potassium Level 4.0 Chloride Level 98 Carbon Dioxide Level 28 Anion Gap 9 Blood Urea Nitrogen 18 Creatinine 0.45 Est Glomerular > 60 Filtrat Rate mL/min Glucose Level 223 H Calcium Level 9.8 Test 08/22/18 11:48 Bedside Glucose 190 HPI/ROS Admit Date/Time Admit Date/Time August 20, 2018 at 17:57 Hx of Present Illness 08/21/18 entry ROS [facility] This is a 68-year-old female patient with a past medical history of hypertension diabetes asthma , possible TIA, using home oxygen at night was admitted with c/o shortness of breath 2/2 to asthma, Headache,shortness of breath, nausea, dysuria and body ache x1 day. Patient reported her dyspnea got worse and she ended up using her home oxygen at 2L via [place] for 24 hours continuously. Patient denied using inhaler prior coming to hospital . Her urine was negative for UTI in ER. The patient reported her headache was bandlike but not having the worst headache.Per patient she feels better now. 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 Patient was sent to the emergency department for further evaluation. She was seen by vascular surgery at that time. During assessment, patient denies shortness of breath, chest pain, palpitations, headache, fever, chills, focal weakness or numbness, abdominal pain, urinary f requency, dysuria, nausea/vomiting, diarrhea, constipation, denies any right/left calf pain. Patient denies any fall/injury/ recent sick contacts or hospitalizations. Patient is admitted under Dr Lin for further treatment and evaluation. ROS All systems reviewed and are negative except as per history of present illness. Medications Home Meds Active Scripts Ondansetron Hcl* (Zofran*) 4 Mg Tablet, 4 MG PO Q8H PRN for NAUSEA AND/OR VOMI TING, #30 TAB Prov:BRODIE RO MD 02/20/18 Mupirocin* (Bactroban*) 2% -22 Gram Oint...g., 1 APPLIC TOP BID for 10 Days, EA Prov:BRODIE RO MD 02/20/18 Hydralazine Hcl* (Hydralazine Hcl*) 25 Mg Tab, 25 MG PO Q8 for 30 Days, #90 TAB Prov:ANA MARIA JOSHI 03/28/17 Insulin Glargine* (Lantus*) 100 Unit/Ml Soln, 18 UNIT SC DAILY@20 for 30 Days Prov:ANA MARIA JOSHI 03/28/17 Insulin Aspart* (Novolog Insulin Pen*) 100 Unit/Ml Soln, 6 UNIT SC WITH MEALS for 30 Days Prov:03/28/17 Furosemide (Lasix) 20 Mg Tab, 20 MG PO DAILY for 30 Days, TAB Prov:03/28/17 Diltiazem Hcl* (Cardizem CD*) 240 Mg Cap.sr.24h, 240 MG PO DAILY for 30 Days Prov:03/28/17 Clopidogrel Bisulfate (Clopidogrel) 75 Mg Tablet, 75 MG PO DAILY for 30 Days, TAB Prov:03/28/17 Atorvastatin* (Atorvastatin*) 80 Mg Tablet, 80 MG PO HS for 30 Days, TAB Prov:03/28/17 Aspirin (Aspirin) 81 Mg Chew, 81 MG PO DAILY for 30 Days, TAB Prov:03/28/17 Losartan Potassium* (Cozaar*) 100 Mg Tablet, 100 MG PO DAILY for 30 Days, TAB Prov:03/28/17 Reported Medications Omeprazole* (Omeprazole*) 40 Mg Capsule.dr, 40 MG PO DAILY, #30 CAP 03/20/17 Albuterol Sulfate* (Albuterol Sulfate* Neb) 0.083%-3 Ml Neb, 1.25 MG NEB Q3H PRN for WHEEZING AND SOB, EA 08/18/14 Montelukast Sodium* (Singulair*) 10 Mg Tablet, 10 MG PO HS, TAB 08/18/14 Metformin* (Glucophage*) 1,000 Mg Tablet, 1000 MG PO WITH BREAKFAST DINNE, TAB 08/18/14 Levothyroxine Sodium* (Levothyroxine Sodium*) 50 Mcg Tablet, 50 MCG PO AC BREAKFAST, TAB 08/18/14 Salmeterol Xinaf/Fluticasone* (Advair*) 250-50 Diskus Inhaler, 1 INH INH BID, INH 08/18/14 Eyes: no complaints ENT: no complaints Respiratory: no complaints Cardiovascular: no complaints Gastrointestinal: no complaints Genitourinary: no complaints Musculoskeletal: no complaints Skin: no complaints Neurologic: no complaints Endocrine: no complaints Lymphatic: no complaints Psychological: nl mood/affect Immunologic: no complaints PMH/Family/Social Past Medical History March 2017 - Possible TIA. Anesthesia Reaction: No Hx Neurological Disorder: No Hx Respiratory Disorders: Yes (Asthma, Home 02 2 L, poss. COPD, PNA) Hx Cardiac Disorders: Yes (HPN, enlarged heart) Hx Psychiatric Problems: No Hx Miscellaneous Medical Probl: Yes (asthma, HTN, DM, hypothyroidism, dys lipidemia) Hx Alcohol Use: No Hx Substance Use: No Hx Tobacco Use: No Medications Current Medications Methylprednisolone Sodium Succinate (Solu-Medrol) 40 mg Q12 IV Last administered on 08/22/18 08:25; Admin Dose 40 MG; Start 08/21/18 at 09:00 Acetaminophen (Tylenol Tab) 650 mg Q4H PRN PO MILD PAIN(1-3)OR ELEVATED TEMP Last administered on 08/21/18 06:10; Admin Dose 650 MG; Start 08/21/18 at 00:00 Enoxaparin Sodium (Lovenox) 40 mg DAILY SC Last administered on 08/22/18 08:31; Admin Dose 40 MG; Start 08/21/18 at 09:00 Insulin Aspart (Novolog Insulin Pen) NOVOLOG *MILD* ALGORITHM WITH MEALS BEDTIME SC Last administered on 08/22/18 11:59; Admin Dose 2 UNIT; Start 08/21/18 at 07:55 Clopidogrel Bisulfate (plaVIX) 75 mg DAILY PO Last administered on 08/22/18 08:27; Admin Dose 75 MG; Start 08/21/18 at 09:00 Diltiazem HCl (Cardizem Cd) 240 mg DAILY PO Last administered on 08/22/18 08:28; Admin Dose 240 MG; Start 08/21/18 at 09:00 Docusate Sodium (Colace) 100 mg BID PO Last administered on 08/22/18 08:28; Admin Dose 100 MG; Start 08/21/18 at 09:00 Furosemide (Lasix) 20 mg DAILY PO Last administered on 08/22/18 08:28; Admin Dose 20 MG; Start 08/21/18 at 09:00 Hydralazine HCl (Apresoline) 50 mg BID PO Last administered on 08/22/18 08:27; Admin Dose 50 MG; Start 08/21/18 at 09:00 Levothyroxine Sodium (Synthroid) 75 mcg BEFORE BREAKFAST PO Last administered on 08/22/18at 05:11; Admin Dose 75 MCG; Start 08/21/18 at 07:00 Metformin HCl (Glucophage) 500 mg WITH BREAKFAST DINNE PO Last administered on 08/22/18at 08:23; Admin Dose 500 MG; Start 08/21/18 at 07:55 Montelukast Sodium (Singulair) 10 mg QHS PO Last administered on 08/21/18at 20:34; Admin Dose 10 MG; Start 08/21/18 at 21:00 Insulin Human NPH (Humulin N) 12 unit BID@08,20 SC Last administered on at 08:32; Admin Dose 12 UNIT; Start 08/21/18 at 08:00 Levofloxacin/ Dextrose 150 ml @ 100 mls/hr Q24H IVPB Last administered on 08/21/18at 14:35; Admin Dose 100 MLS/HR; Start 08/21/18 at 14:00; Stop 08/26/18 at 21:00 Pantoprazole (Protonix Tab) 40 mg DAILY@06 PO Last administered on 08/22/18at 05:11; Admin Dose 40 MG; Start 08/21/18 at 06:00 Miscellaneous Information 1 ea NOTE XX ; Start 08/21/18 at 00:30 Glucose (Glutose) 15 gm Q15M PRN PO DECREASED GLUCOSE; Start 08/21/18 at 00:30 Glucose (Glutose) 22.5 gm Q15M PRN PO DECREASED GLUCOSE; Start 08/21/18 at 00:30 Dextrose (D50w Syringe) 25 ml Q15M PRN IV DECREASED GLUCOSE; Start 08/21/18 at 00:30 Dextrose (D50w Syringe) 50 ml Q15M PRN IV DECREASED GLUCOSE; Start 08/21/18 at 00:30 Glucagon (Glucagen) 1 mg Q15M PRN IM DECREASED GLUCOSE; Start 08/21/18 at 00:30 Glucose (Glutose) 15 gm Q15M PRN BUCCAL DECREASED GLUCOSE; Start 08/21/18 at 00:30 Albuterol/ Ipratropium (Duoneb) 3 ml Q6H RESP THERAPY HHN Last administered on 08/22/18at 09:11; Admin Dose 3 ML; Start 08/21/18 at 02:00 Miscellaneous Information Patients own medicat... BID@ XX ; Start 08/21/18 at 10:00 Coded Allergies: Penicillins (Unverified Allergy, Unknown, rash, 08/20/18) amoxicillin (Unverified Allergy, Unknown, rash, 08/20/18) famotidine (Unverified Allergy, Unknown, rash, 08/20/18) Past Surgical History Cataract surgery, bilateral, Bowel resection, hysterectomy, colon resection with colostomy reversal and right breast lumpectomy. Family History Significant Family History: hypertension, other (cardiac disorders) Social History Smoking Status: Never smoker Exam/Review of Systems Vital Signs Vitals Vital Signs Date Temp Pulse Resp B/P (MAP) Pulse Ox O2 O2 Flow FiO2 Time Delivery Rate 08/22/18 98.0 76 18 156/67 97 Room Air 11:47 (96) 08/22/18 2.0 09:14 08/20/18 40 16:00 Intake and Output 08/21/18 08/21/18 08/22/18 1515:00 23:00 07:00 IntakeIntake Total 1270 ml 220 ml BalanceBalance 1270 ml 220 ml Exam Constitutional: alert, oriented, well developed Psych: nl mood/affect Head: atraumatic Eyes: nl lids, nl sclera ENMT: nl external ears & nose Neck: non-tender Respiratory: diminished breath sounds (atbases bilaterally) Cardiovascular: nl pulses, other (s1s2) Gastrointestinal: soft, non-tender Musculoskeletal: nl extremities to inspection Extremities: normal pulses Neurological: nl mental status, nl speech Skin: other (LLE ulcer) Lymph: nontender NEFTALI MARTINEZ August 22, 2018 12:17
--- NOTE | 2018-08-22 13:54 | PN ---
Date/Time of Note Date/Time of Note DATE: 08/22/18 TIME: 13:45 Assessment/Plan VTE Prophylaxis Risk score (from Ns)>0 risk: 2 SCD applied (from [facility] [place]): No SCD contraindicated: other Pharmacological prophylaxis: LMWH Lines/Catheters IV Catheter Type (from Nrs): Saline Lock Assessment/Plan Assessment/Plan -Asthma with severe exacerbation - patient reports she feels better now - breathing treatments - admitting orders done - COPD - pulmonary toilet -Upper respiratory infection - cont Levaquin - Acute Headache- none at present - Multi drug allergy- PCN, Amoxicillin, Famotidine - HTN - stable -DM -Glycemic control - Hyperglycemia 2/2aove - LLE wound - wound care consult - wound care - cont antibiotic - Possible UTI - urine c/s -negative for uti - Hypothyroidism -cont Synthroid - Dyslipidemia - cont Lipitor -- 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 - cardiology consult will be appreciated Patient seen in collaboration with Dr Lin. Dw staff Result Diagram: 08/22/18 0608/22/18 0601 Results 24hrs Laboratory Tests Test 08/21/18 17:18 08/21/18 20:33 08/22/18 06:01 08/22/18 08:10 Bedside Glucose 235 H 132 203 White Blood Count 9.1 # Red Blood Count 4.23 Hemoglobin 10.4 L Hematocrit 33.0 L Mean Corpuscular 78.0 L Volume Mean Corpuscular 24.6 L Hemoglobin Mean Corpuscular 31.5 L Hemoglobin Concent Red Cell 17.3 H Distribution Width Platelet Count 342 Mean Platelet Volume 10.6 H Immature 0.400 Granulocytes % Neutrophils % 92.1 H Lymphocytes % 5.3 L Monocytes % 2.2 Eosinophils % 0.0 Basophils % 0.0 Nucleated Red Blood 0.0 Cells % Immature 0.040 H Granulocytes # Neutrophils # 8.4 H Lymphocytes # 0.5 L Monocytes # 0.2 L Eosinophils # 0.0 Basophils # 0.0 Nucleated Red Blood 0.0 Cells # Sodium Level 135 Potassium Level 4.0 Chloride Level 98 Carbon Dioxide Level 28 Anion Gap 9 Blood Urea Nitrogen 18 Creatinine 0.45 Est Glomerular > 60 Filtrat Rate mL/min Glucose Level 223 H Calcium Level 9.8 Test 08/22/18 11:48 Bedside Glucose 190 Subjective 24 Hr Interval Summary Free Text/Dictation - NAD - seems comfortable on supplement oxygen - no new issues reported overnight per staff - dw staff Constitutional: improved, requiring O2 Eyes: no complaints ENT: no complaints Respiratory: no complaints Cardiovascular: no complaints Gastrointestinal: no complaints Genitourinary: no complaints Musculoskeletal: no complaints Skin: other (wound) Neurologic: no complaints Exam/Review of Systems Exam Vitals Vital Signs Date Temp Pulse Resp B/P (MAP) Pulse Ox O2 O2 Flow FiO2 Time Delivery Rate 08/22/18 80 13:22 08/22/18 98.0 18 156/67 97 Room Air 11:47 (96) 08/22/18 2.0 09:14 08/20/18 40 16:00 Intake and Output 08/21/18 08/21/18 08/22/18 1515:00 23:00 07:00 IntakeIntake Total 1270 ml 220 ml BalanceBalance 1270 ml 220 ml Constitutional: alert, well developed Psych: nl mood/affect Head: atraumatic Eyes: nl lids, nl sclera ENMT: nl external ears & nose Respiratory: clear to auscultation Cardiovascular: nl pulses, other (s1s2) Gastrointestinal: non-tender Musculoskeletal: nl extremities to inspection Extremities: normal pulses Neurological: nl speech Skin: other (LLEwound) Lymph: nontender Results Results 24hrs Laboratory Tests Test 08/21/18 17:18 08/21/18 20:33 08/22/18 06:01 08/22/18 08:10 Bedside Glucose 235 H 132 203 White Blood Count 9.1 # Red Blood Count 4.23 Hemoglobin 10.4 L Hematocrit 33.0 L Mean Corpuscular 78.0 L Volume Mean Corpuscular 24.6 L Hemoglobin Mean Corpuscular 31.5 L Hemoglobin Concent Red Cell 17.3 H Distribution Width Platelet Count 342 Mean Platelet Volume 10.6 H Immature 0.400 Granulocytes % Neutrophils % 92.1 H Lymphocytes % 5.3 L Monocytes % 2.2 Eosinophils % 0.0 Basophils % 0.0 Nucleated Red Blood 0.0 Cells % Immature 0.040 H Granulocytes # Neutrophils # 8.4 H Lymphocytes # 0.5 L Monocytes # 0.2 L Eosinophils # 0.0 Basophils # 0.0 Nucleated Red Blood 0.0 Cells # Sodium Level 135 Potassium Level 4.0 Chloride Level 98 Carbon Dioxide Level 28 Anion Gap 9 Blood Urea Nitrogen 18 Creatinine 0.45 Est Glomerular > 60 Filtrat Rate mL/min Glucose Level 223 H Calcium Level 9.8 Test 08/22/18 11:48 Bedside Glucose 190 Medications Medication Current Medications Methylprednisolone Sodium Succinate (Solu-Medrol) 40 mg Q12 IV Last administered on 08/22/18 08:25; Admin Dose 40 MG; Start 08/21/18 at 09:00 Acetaminophen (Tylenol Tab) 650 mg Q4H PRN PO MILD PAIN(1-3)OR ELEVATED TEMP Last administered on 08/21/18 06:10; Admin Dose 650 MG; Start 08/21/18 at 00:00 Enoxaparin Sodium (Lovenox) 40 mg DAILY SC Last administered on 08/22/18 08:31; Admin Dose 40 MG; Start 08/21/18 at 09:00 Insulin Aspart (Novolog Insulin Pen) NOVOLOG *MILD* ALGORITHM WITH MEALS BEDTIME SC Last administered on 08/22/18 11:59; Admin Dose 2 UNIT; Start 08/21/18 at 07:55 Clopidogrel Bisulfate (plaVIX) 75 mg DAILY PO Last administered on 08/22/18 08:27; Admin Dose 75 MG; Start 08/21/18 at 09:00 Diltiazem HCl (Cardizem Cd) 240 mg DAILY PO Last administered on 08/22/18 08:28; Admin Dose 240 MG; Start 08/21/18 at 09:00 Docusate Sodium (Colace) 100 mg BID PO Last administered on 08/22/18 08:28; Admin Dose 100 MG; Start 08/21/18 at 09:00 Furosemide (Lasix) 20 mg DAILY PO Last administered on 08/22/18 08:28; Admin Dose 20 MG; Start 08/21/18 at 09:00 Hydralazine HCl (Apresoline) 50 mg BID PO Last administered on 08/22/18 08:27; Admin Dose 50 MG; Start 08/21/18 at 09:00 Levothyroxine Sodium (Synthroid) 75 mcg BEFORE BREAKFAST PO Last administered on 08/22/18 05:11; Admin Dose 75 MCG; Start 08/21/18 at 07:00 Metformin HCl (Glucophage) 500 mg WITH BREAKFAST DINNE PO Last administered on 08/22/18 08:23; Admin Dose 500 MG; Start 08/21/18 at 07:55 Montelukast Sodium (Singulair) 10 mg QHS PO Last administered on 08/21/18at 20:34; Admin Dose 10 MG; Start 08/21/18 at 21:00 Insulin Human NPH (Humulin N) 12 unit BID@08,20 SC Last administered on 08/22/18at 08:32; Admin Dose 12 UNIT; Start 08/21/18 at 08:00 Levofloxacin/ Dextrose 150 ml @ 100 mls/hr Q24H IVPB Last administered on 08/21/18at 14:35; Admin Dose 100 MLS/HR; Start 08/21/18 at 14:00; Stop 08/26/18 at 21:00 Pantoprazole (Protonix Tab) 40 mg DAILY@06 PO Last administered on 08/22/18at 05:11; Admin Dose 40 MG; Start 08/21/18 at 06:00 Miscellaneous Information 1 ea NOTE XX ; Start 08/21/18 at 00:30 Glucose (Glutose) 15 gm Q15M PRN PO DECREASED GLUCOSE; Start 08/21/18 at 00:30 Glucose (Glutose) 22.5 gm Q15M PRN PO DECREASED GLUCOSE; Start 08/21/18 at 00:3 0 Dextrose (D50w Syringe) 25 ml Q15M PRN IV DECREASED GLUCOSE; Start 08/21/18 at 00:30 Dextrose (D50w Syringe) 50 ml Q15M PRN IV DECREASED GLUCOSE; Start 08/21/18 at 00:30 Glucagon (Glucagen) 1 mg Q15M PRN IM DECREASED GLUCOSE; Start 08/21/18 at 00:30 Glucose (Glutose) 15 gm Q15M PRN BUCCAL DECREASED GLUCOSE; Start 08/21/18 at 00:30 Albuterol/ Ipratropium (Duoneb) 3 ml Q6H RESP THERAPY HHN Last administered on 08/22/18at 09:11; Admin Dose 3 ML; Start 08/21/18 at 02:00 Miscellaneous Information Patients own medicat... BID@10,16 XX ; Start 08/21/18 at 10:00 Metoclopramide HCl (Reglan) 5 mg Q6H PO ; Start 08/22/18 at 13:00 NEFTALI MARTINEZ August 22, 2018 13:54
[2018-08-22] MEDS: METOCLOPRAMIDE 5 MG TAB PO SCH ×2 (14:23→19:06)
[2018-08-22] MEDS: LEVOFLOXACIN 750MG/D5W (PMX) 150 ML IVPB SCH (14:24)
[2018-08-22] MEDS: MONTELUKAST 10 MG TAB PO SCH (20:18)
[2018-08-23] VITALS (13 sets, daily range): BP systolic 145–178; BP diastolic 67–81; PULSE 71–89; RESP 17–20
[2018-08-23] MEDS: METOCLOPRAMIDE 5 MG TAB PO SCH ×4 (01:12→18:45)
[2018-08-23] MEDS: ALBUTEROL/IPRATROPIUM (NEB) 3 ML AMP HHN SCH ×4 (01:46→19:12)
--- NOTE | 2018-08-23 05:31 | PN ---
Date/Time of Note Date/Time of Note DATE: 08/23/18 TIME: 05:31 Assessment/Plan VTE Prophylaxis Risk score (from Ns)>0 risk: 2 [place] [facility] [place] No SCD contraindicated: other Pharmacological prophylaxis: LMWH Pharm contraindication: other Lines/Catheters IV C[facility]ter Type ([facility] Saline Lock Assessment/Plan Assessment/Plan -Asthma with severe exacerbation - patient reports she feels better now - breathing treatments - admitting orders done - COPD - pulmonary toilet -Upper respiratory infection - cont Levaquin - Acute Headache- none at present - Multi drug allergy- PCN, Amoxicillin, Famotidine - HTN - stable -DM -Glycemic control - Hyperglycemia 2/2aove - LLE wound - wound care consult - wound care - cont antibiotic - Possible UTI - urine c/s -negative for uti - Hypothyroidism -cont Synthroid - Dyslipidemia - cont Lipitor -- 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 - cardiology consult will be appreciated Patient seen in collaboration with Dr Lin. staff Result Diagram: 08/22/18 0601 08/22/18 0601 Results 24hrs Laboratory Tests Test 08/22/18 06:01 08/22/18 08:10 08/22/18 11:48 08/22/18 17:12 White Blood Count 9.1 # Red Blood Count 4.23 Hemoglobin 10.4 L Hematocrit 33.0 L Mean Corpuscular 78.0 L Volume Mean Corpuscular 24.6 L Hemoglobin Mean Corpuscular 31.5 L Hemoglobin Concent Red Cell 17.3 H Distribution Width Platelet Count 342 Mean Platelet Volume 10.6 H Immature 0.400 Granulocytes % Neutrophils % 92.1 H Lymphocytes % 5.3 L Monocytes % 2.2 Eosinophils % 0.0 Basophils % 0.0 Nucleated Red Blood 0.0 Cells % Immature 0.040 H Granulocytes # Neutrophils # 8.4 H Lymphocytes # 0.5 L Monocytes # 0.2 L Eosinophils # 0.0 Basophils # 0.0 Nucleated Red Blood 0.0 Cells # Sodium Level 135 Potassium Level 4.0 Chloride Level 98 Carbon Dioxide Level 28 Anion Gap 9 Blood Urea Nitrogen 18 Creatinine 0.45 Est Glomerular > 60 Filtrat Rate mL/min Glucose Level 223 H Calcium Level 9.8 Bedside Glucose 203 190 241 H Test 08/22/18 20:18 Bedside Glucose 131 Subjective 24 Hr Interval Summary Free Text/Dictation - NAD - seems comfortable on supplement oxygen - sleeping- easily awakens when called by name - no new issues reported overnight per staff - dw staff Constitutional: requiring O2 Respiratory: no complaints Cardiovascular: no complaints Gastrointestinal: no complaints Genitourinary: no complaints Musculoskeletal: no complaints Psychological: nl mood/affect Immunologic: no complaints Exam/Review of Systems Exam Vitals Vital Signs Date Temp Pulse Resp B/P (MAP) Pulse Ox O2 O2 Flow FiO2 Time Delivery Rate 08/23/18 71 04:31 08/23/18 98.3 17 148/78 98 04:18 (101) 08/23/18 Nasal 2.0 01:50 Cannula 08/20/18 40 16:00 Intake and Output 08/22/18 08/22/18 08/23/18 1515:00 23:00 07:00 IntakeIntake Total 800 ml 250 ml BalanceBalance 800 ml 250 ml Constitutional: alert, well developed Psych: nl mood/affect Head: atraumatic ENMT: nl external ears & nose Neck: non-tender Respiratory: clear to auscultation Cardiovascular: nl pulses, other (s1s2) Gastrointestinal: soft, non-tender Musculoskeletal: nl extremities to inspection Extremities: normal pulses Neurological: nl speech Skin: other (LLE wound) Lymph: nontender ( ) Results Results 24hrs Laboratory Tests Test 08/22/18 06:01 08/22/18 08:10 08/22/18 11:48 08/22/18 17:12 White Blood Count 9.1 # Red Blood Count 4.23 Hemoglobin 10.4 L Hematocrit 33.0 L Mean Corpuscular 78.0 L Volume Mean Corpuscular 24.6 L Hemoglobin Mean Corpuscular 31.5 L Hemoglobin Concent Red Cell 17.3 H Distribution Width Platelet Count 342 Mean Platelet Volume 10.6 H Immature 0.400 Granulocytes % Neutrophils % 92.1 H Lymphocytes % 5.3 L Monocytes % 2.2 Eosinophils % 0.0 Basophils % 0.0 Nucleated Red Blood 0.0 Cells % Immature 0.040 H Granulocytes # Neutrophils # 8.4 H Lymphocytes # 0.5 L Monocytes # 0.2 L Eosinophils # 0.0 Basophils # 0.0 Nucleated Red Blood 0.0 Cells # Sodium Level 135 Potassium Level 4.0 Chloride Level 98 Carbon Dioxide Level 28 Anion Gap 9 Blood Urea Nitrogen 18 Creatinine 0.45 Est Glomerular > 60 Filtrat Rate mL/min Glucose Level 223 H Calcium Level 9.8 Bedside Glucose 203 190 241 H Test 08/22/18 20:18 Bedside Glucose 131 Medications Medication Current Medications Methylprednisolone Sodium Succinate (Solu-Medrol) 40 mg Q12 IV Last administered on 08/22/18 20:18; Admin Dose 40 MG; Start 08/21/18 at 09:00 Acetaminophen (Tylenol Tab) 650 mg Q4H PRN PO MILD PAIN(1-3)OR ELEVATED TEMP Last administered on 08/21/18 06:10; Admin Dose 650 MG; Start 08/21/18 at 00:00 Enoxaparin Sodium (Lovenox) 40 mg DAILY SC Last administered on 08/22/18 08:31; Admin Dose 40 MG; Start 08/21/18 at 09:00 Insulin Aspart (Novolog Insulin Pen) NOVOLOG *MILD* ALGORITHM WITH MEALS BEDTIME SC Last administered on 08/22/18 17:18; Admin Dose 3 UNIT; Start 08/21/18 at 07:55 Clopidogrel Bisulfate (plaVIX) 75 mg DAILY PO Last administered on 08/22/18 08:27; Admin Dose 75 MG; Start 08/21/18 at 09:00 Diltiazem HCl (Cardizem Cd) 240 mg DAILY PO Last administered on 08/22/18 08:28; Admin Dose 240 MG; Start 08/21/18 at 09:00 Docusate Sodium (Colace) 100 mg BID PO Last administered on 08/22/18 20:19; Admin Dose 100 MG; Start 08/21/18 at 09:00 Furosemide (Lasix) 20 mg DAILY PO Last administered on 08/22/18 08:28; Admin Dose 20 MG; Start 08/21/18 at 09:00 Hydralazine HCl (Apresoline) 50 mg BID PO Last administered on 08/22/18 20:19; Admin Dose 50 MG; Start 08/21/18 at 09:00 Levothyroxine Sodium (Synthroid) 75 mcg BEFORE BREAKFAST PO Last administered on 08/22/18 05:11; Admin Dose 75 MCG; Start 08/21/18 at 07:00 Metformin HCl (Glucophage) 500 mg WITH BREAKFAST DINNE PO Last administered on 08/22/18 17:15; Admin Dose 500 MG; Start 08/21/18 at 07:55 Montelukast Sodium (Singulair) 10 mg QHS PO Last administered on 08/22/18at 20:18; Admin Dose 10 MG; Start 08/21/18 at 21:00 Insulin Human NPH (Humulin N) 12 unit BID@08,20 SC Last administered on 08/22/18at 20:45; Admin Dose 12 UNIT; Start 08/21/18 at 08:00 Levofloxacin/ Dextrose 150 ml @ 100 mls/hr Q24H IVPB Last administered on 08/22/18at 14:24; Admin Dose 100 MLS/HR; Start 08/21/18 at 14:00; Stop 08/26/18 at 21:00 Pantoprazole (Protonix Tab) 40 mg DAILY@06 PO Last administered on 08/22/18at 05:11; Admin Dose 40 MG; Start 08/21/18 at 06:00 Miscellaneous Information 1 ea NOTE XX ; Start 08/21/18 at 00:30 Glucose (Glutose) 15 gm Q15M PRN PO DECREASED GLUCOSE; Start 08/21/18 at 00:30 Glucose (Glutose) 22.5 gm Q15M PRN PO DECREASED GLUCOSE; Start 08/21/18 at 00:30 Dextrose (D50w Syringe) 25 ml Q15M PRN IV DECREASED GLUCOSE; Start 08/21/18 at 00:30 Dextrose (D50w Syringe) 50 ml Q15M PRN IV DECREASED GLUCOSE; Start 08/21/18 at 00:30 Glucagon (Glucagen) 1 mg Q15M PRN IM DECREASED GLUCOSE; Start 08/21/18 at 00:30 Glucose (Glutose) 15 gm Q15M PRN BUCCAL DECREASED GLUCOSE; Start 08/21/18 at 00:30 Albuterol/ Ipratropium (Duoneb) 3 ml Q6H RESP THERAPY HHN Last administered on 08/23/18at 01:46; Admin Dose 3 ML; Start 08/21/18 at 02:00 Miscellaneous Information Patients own medicat... BID@10,16 XX ; Start 08/21/18 at 10:00 Metoclopramide HCl (Reglan) 5 mg Q6H PO Last administered on 08/23/18at 01:12; Admin Dose 5 MG; Start 08/22/18 at 13:00 NEFTALI MARTINEZ August 23, 2018 05:31
[2018-08-23] MEDS: LEVOTHYROXINE 75 MCG TAB PO SCH (06:09)
[2018-08-23] MEDS: PANTOPRAZOLE (EC) 40 MG TAB PO SCH (06:09)
[2018-08-23] MEDS: metFORMIN 500 MG TAB PO SCH ×2 (08:03→17:24)
[2018-08-23] MEDS: INSULIN ASPART [NOVOLOG] 3 ML PEN SC SCH ×4 (08:09→20:42)
[2018-08-23] MEDS: NPH, HUMAN INSULIN ISOPHANE 3ML VIAL SC SCH ×2 (08:09→20:42)
[2018-08-23] MEDS: METHYLPREDNISOLONE 40 MG INJ IV SCH ×2 (09:16→21:06)
[2018-08-23] MEDS: DILTIAZEM (CD) 240 MG CAP PO SCH (09:16)
[2018-08-23] MEDS: FUROSEMIDE 20 MG TAB PO SCH (09:16)
[2018-08-23] MEDS: DOCUSATE SODIUM 100 MG CAP PO SCH ×2 (09:16→21:06)
[2018-08-23] MEDS: CLOPIDOGREL 75 MG TAB PO SCH (09:17)
[2018-08-23] MEDS: ENOXAPARIN 40 MG/0.4 ML SYG SC SCH (09:24)
[2018-08-23] MEDS: LEVOFLOXACIN 750MG/D5W (PMX) 150 ML IVPB SCH (15:02)
[2018-08-23] MEDS: MONTELUKAST 10 MG TAB PO SCH (21:06)
[2018-08-24] VITALS (13 sets, daily range): BP systolic 17–179; BP diastolic 65–159; PULSE 70–79; RESP 17–20
[2018-08-24] MEDS: METOCLOPRAMIDE 5 MG TAB PO SCH ×2 (00:53→06:04)
[2018-08-24] MEDS: ALBUTEROL/IPRATROPIUM (NEB) 3 ML AMP HHN SCH ×4 (01:41→21:17)
[2018-08-24] MEDS: LEVOTHYROXINE 75 MCG TAB PO SCH (06:04)
[2018-08-24] MEDS: PANTOPRAZOLE (EC) 40 MG TAB PO SCH (06:04)
[2018-08-24] MEDS: DIPHENHYDRAMINE 25 MG CAP PO PRN ×3 (08:22→22:48)
[2018-08-24] MEDS: INSULIN ASPART [NOVOLOG] 3 ML PEN SC SCH ×4 (08:29→20:32)
[2018-08-24] MEDS: NPH, HUMAN INSULIN ISOPHANE 3ML VIAL SC SCH ×2 (08:29→20:44)
[2018-08-24] MEDS: metFORMIN 500 MG TAB PO SCH ×2 (08:45→17:32)
[2018-08-24] MEDS: DOCUSATE SODIUM 100 MG CAP PO SCH ×2 (08:46→20:32)
[2018-08-24] MEDS: ENOXAPARIN 40 MG/0.4 ML SYG SC SCH (08:47)
[2018-08-24] MEDS: METHYLPREDNISOLONE 40 MG INJ IV SCH ×2 (08:48→20:32)
[2018-08-24] MEDS: FUROSEMIDE 20 MG TAB PO SCH (08:49)
[2018-08-24] MEDS: DILTIAZEM (CD) 240 MG CAP PO SCH (08:49)
[2018-08-24] MEDS: CLOPIDOGREL 75 MG TAB PO SCH (08:49)
[2018-08-24] MEDS: LEVOFLOXACIN 750MG/D5W (PMX) 150 ML IVPB SCH (14:40)
--- NOTE | 2018-08-24 14:43 | PN ---
Date/Time of Note Date/Time of Note DATE: 08/24/18 TIME: 14:39 Assessment/Plan VTE Prophylaxis Risk score (from Nsg)>0 risk: 3 SCD applied (from Nsg): Yes Pharmacological prophylaxis: LMWH Lines/Catheters IV Catheter Type (from Nrsg): Saline Lock Assessment/Plan Hospital Course Pt continues on supplemental oxygen via NC without distress at rest, pt states that she feels better. Assessment/Plan - Asthma exacerbation, continue Solu-Medrol and Singulair. - COPD, continue breathing treatments. - Upper respiratory infection, continue Levaquin - Hypertension. - Diabetes mellitus. Continue Lantus and pre-meal NovoLog. - Hypothyroidism, continue Synthroid. - Dyslipidemia. Continue Lipitor. 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 Further recommendations based on clinical course. Plan of care discussed with Dr. Lin. Result Diagram: 08/22/1860008/22/18600 Results 24hrs Laboratory Tests Test 08/23/18 17:21 08/23/18 20:36 08/24/18 08:11 08/24/18 11:55 Bedside Glucose 207 206 176 159 Exam/Review of Systems Exam Vitals Vital Signs Date Temp Pulse Resp B/P (MAP) Pulse Ox O2 O2 Flow FiO2 Time Delivery Rate 08/24/18 97 2.0 14:23 08/24/18 70 20 Nasal 14:21 Cannula 08/24/18 98.0 144/73 11:44 (96) 08/20/18 40 16:00 Intake and Output 08/23/18 08/23/18 08/24/18 1515:00 23:00 07:00 IntakeIntake Total 900 ml 250 ml BalanceBalance 900 ml 250 ml Constitutional: alert, oriented Respiratory: clear to auscultation Cardiovascular: regular rate and rhythm Gastrointestinal: soft, non-tender Extremities: normal pulses Neurological: nl mental status Results Results 24hrs Laboratory Tests Test 08/23/18 17:21 08/23/18 20:36 08/24/18 08:11 08/24/18 11:55 Bedside Glucose 207 206 176 159 Medications Medication Current Medications Methylprednisolone Sodium Succinate (Solu-Medrol) 40 mg Q12 IV Last administe red on 08/24/18at 08:48; Admin Dose 40 MG; Start 08/21/18 at 09:00 Acetaminophen (Tylenol Tab) 650 mg Q4H PRN PO MILD PAIN(1-3)OR ELEVATED TEMP Last administered on 08/21/18 06:10; Admin Dose 650 MG; Start 08/21/18 at 00:00 Enoxaparin Sodium (Lovenox) 40 mg DAILY SC Last administered on 08/24/18 08:47; Admin Dose 40 MG; Start 08/21/18 at 09:00 Insulin Aspart (Novolog Insulin Pen) NOVOLOG *MILD* ALGORITHM WITH MEALS BEDTIME SC Last administered on 08/24/18 11:59; Admin Dose 1 UNIT; Start at 07:55 Clopidogrel Bisulfate (plaVIX) 75 mg DAILY PO Last administered on 08/24/18 08:49; Admin Dose 75 MG; Start 08/21/18 at 09:00 Diltiazem HCl (Cardizem Cd) 240 mg DAILY PO Last administered on 08/24/18 08:49; Admin Dose 240 MG; Start 08/21/18 at 09:00 Docusate Sodium (Colace) 100 mg BID PO Last administered on 08/24/18 08:46; Admin Dose 100 MG; Start 08/21/18 at 09:00 Furosemide (Lasix) 20 mg DAILY PO Last administered on 08/24/18 08:49; Admin Dose 20 MG; Start 08/21/18 at 09:00 Hydralazine HCl (Apresoline) 50 mg BID PO Last administered on 08/24/18 08:47; Admin Dose 50 MG; Start 08/21/18 at 09:00 Levothyroxine Sodium (Synthroid) 75 mcg BEFORE BREAKFAST PO Last administered on 08/24/18 06:04; Admin Dose 75 MCG; Start 08/21/18 at 07:00 Metformin HCl (Glucophage) 500 mg WITH BREAKFAST DINNE PO Last administered on 08/24/18 08:45; Admin Dose 500 MG; Start 08/21/18 at 07:55 Montelukast Sodium (Singulair) 10 mg QHS PO Last administered on 08/23/18 21:06; Admin Dose 10 MG; Start 08/21/18 at 21:00 Insulin Human NPH (Humulin N) 12 unit BID@08,20 SC Last administered on 08/24/18 08:29; Admin Dose 12 UNIT; Start 08/21/18 at 08:00 Levofloxacin/ Dextrose 150 ml @ 100 mls/hr Q24H IVPB Last administered on 08/23/18at 15:02; Admin Dose 100 MLS/HR; Start 08/21/18 at 14:00; Stop 08/26/18 at 21:00 Pantoprazole (Protonix Tab) 40 mg DAILY@06 PO Last administered on 08/24/18at 06:04; Admin Dose 40 MG; Start 08/21/18 at 06:00 Miscellaneous Information 1 ea NOTE XX ; Start 08/21/18 at 00:30 Glucose (Glutose) 15 gm Q15M PRN PO DECREASED GLUCOSE; Start 08/21/18 at 00:30 Glucose (Glutose) 22.5 gm Q15M PRN PO DECREASED GLUCOSE; Start 08/21/18 at 00:30 Dextrose (D50w Syringe) 25 ml Q15M PRN IV DECREASED GLUCOSE; Start 08/21/18 at 00:30 Dextrose (D50w Syringe) 50 ml Q15M PRN IV DECREASED GLUCOSE; Start 08/21/18 at 00:30 Glucagon (Glucagen) 1 mg Q15M PRN IM DECREASED GLUCOSE; Start 08/21/18 at 00:30 Glucose (Glutose) 15 gm Q15M PRN BUCCAL DECREASED GLUCOSE; Start 08/21/18 at 00:30 Albuterol/ Ipratropium (Duoneb) 3 ml Q6H RESP THERAPY HHN Last administered on 08/24/18at 14:18; Admin Dose 3 ML; Start 08/21/18 at 02:00 Miscellaneous Information Patients own medicat... BID@ XX ; Start 08/21/18 at 10:00 Ondansetron HCl (Zofran Inj) 4 mg Q4H PRN IV NAUSEA AND/OR VOMITING; Start 08/24/18 at 07:00 Diphenhydramine HCl (Benadryl) 25 mg Q6H PRN PO ITCHING Last administered on 08/24/18at 08:22; Admin Dose 25 MG; Start 08/24/18 at 07:00 Atorvastatin Calcium (Lipitor) 20 mg HS GTB ; Start 08/24/18 at 21:00 ANA MARIA JOSHI August 24, 2018 14:43
[2018-08-24] MEDS: ATORVASTATIN 20 MG TAB GTB SCH (20:32)
[2018-08-24] MEDS: MONTELUKAST 10 MG TAB PO SCH (20:32)
[2018-08-25] VITALS (12 sets, daily range): BP systolic 145–189; BP diastolic 64–86; PULSE 69–91; RESP 17–20
[2018-08-25] MEDS: ALBUTEROL/IPRATROPIUM (NEB) 3 ML AMP HHN SCH ×4 (01:39→19:57)
[2018-08-25] MEDS: hydrALAzine 20 MG INJ IV PRN ×2 (06:03→16:48)
[2018-08-25] MEDS: LEVOTHYROXINE 75 MCG TAB PO SCH (06:03)
[2018-08-25] MEDS: PANTOPRAZOLE (EC) 40 MG TAB PO SCH (06:03)
[2018-08-25] MEDS: DIPHENHYDRAMINE 25 MG CAP PO PRN ×2 (06:03→17:52)
[2018-08-25] MEDS: NPH, HUMAN INSULIN ISOPHANE 3ML VIAL SC SCH ×2 (08:25→20:25)
[2018-08-25] MEDS: INSULIN ASPART [NOVOLOG] 3 ML PEN SC SCH ×4 (08:25→20:37)
[2018-08-25] MEDS: METHYLPREDNISOLONE 40 MG INJ IV SCH ×2 (09:00→20:18)
[2018-08-25] MEDS: metFORMIN 500 MG TAB PO SCH ×2 (09:00→17:30)
[2018-08-25] MEDS: CLOPIDOGREL 75 MG TAB PO SCH (09:01)
[2018-08-25] MEDS: DOCUSATE SODIUM 100 MG CAP PO SCH ×2 (09:01→20:19)
[2018-08-25] MEDS: DILTIAZEM (CD) 240 MG CAP PO SCH (09:01)
[2018-08-25] MEDS: FUROSEMIDE 20 MG TAB PO SCH (09:02)
[2018-08-25] MEDS: ENOXAPARIN 40 MG/0.4 ML SYG SC SCH (09:04)
--- NOTE | 2018-08-25 11:05 | CONS ---
Consultation Date/Type/Reason Admit Date/Time August 20, 2018 at 17:57 Type of Consult Cardiology Date/Time of Note DATE: 08/25/18 TIME: 11:04 Hx of Present Illness 68 yo with SOB, likely asthma vs CHf - stable fluid status - r/o AR - full note dictated # [id number] Past Medical History Home Meds Reported Medications Budesonide-Formoterol Fumarate* (Symbicort*) 80-4.5 Inha, 2 PUFFS INHALATION BID, #1 EACH 08/20/18 Hydralazine Hcl* (Hydralazine Hcl*) 50 Mg Tab, 50 MG PO BID, #60 TAB 08/20/18 Diltiazem Hcl* (Cardizem CD*) 240 Mg Cap.sr.24h, 240 MG PO DAILY, #30 CAP 08/20/18 Clopidogrel Bisulfate* (Clopidogrel Bisulfate*) 75 Mg Tablet, 75 MG PO DAILY, #30 TAB 08/20/18 Docusate Sodium* (Colace*) 100 Mg Capsule, 100 MG PO BID, #60 CAP 08/20/18 Ondansetron Hcl* (Zofran*) 4 Mg Tablet, 4 MG PO Q8, TAB 08/20/18 Nitroglycerin* (Nitroglycerin* SL) 0.4 Mg Tab.subl, 0.4 MG SL Q5MIN PRN for CHEST PAIN, BOTTLE 08/20/18 Furosemide* (Furosemide*) 20 Mg Tablet, 20 MG PO DAILY, #60 TAB 08/20/18 Omeprazole* (Omeprazole*) 20 Mg Capsule.dr, 20 MG PO DAILY, #30 CAP 08/20/18 Montelukast Sodium* (Montelukast Sodium*) 10 Mg Tablet, 10 MG PO QHS, #30 TAB 08/20/18 Metformin Hcl* (Metformin Hcl*) 500 Mg Tablet, 500 MG PO WITH BREAKFAST DINNE, #60 TAB 08/20/18 Levothyroxine Sodium* (Levothyroxine Sodium*) 75 Mcg Tablet, 75 MCG PO BEFORE BREAKFAST, #30 TAB 08/20/18 Discontinued Reported Medications Omeprazole* (Omeprazole*) 40 Mg Capsule.dr, 40 MG PO DAILY, #30 CAP 03/20/17 Albuterol Sulfate* (Albuterol Sulfate* Neb) 0.083%-3 Ml Neb, 1.25 MG NEB Q3H PRN for WHEEZING AND SOB, EA 08/18/14 Montelukast Sodium* (Singulair*) 10 Mg Tablet, 10 MG PO HS, TAB 08/18/14 Metformin* (Glucophage*) 1,000 Mg Tablet, 1000 MG PO WITH BREAKFAST DINNE, TAB 08/18/14 Levothyroxine Sodium* (Levothyroxine Sodium*) 50 Mcg Tablet, 50 MCG PO AC BREAKFAST, TAB 08/18/14 Salmeterol Xinaf/Fluticasone* (Advair*) 250-50 Diskus Inhaler, 1 INH INH BID, INH 08/18/14 Discontinued Scripts Ondansetron Hcl* (Zofran*) 4 Mg Tablet, 4 MG PO Q8H PRN for NAUSEA AND/OR VOMITING, #30 TAB Prov:BRODIE RO MD 02/20/18 Mupirocin* (Bactroban*) 2% -22 Gram Oint...g., 1 APPLIC TOP BID for 10 Days, EA Prov:BRODIE RO MD 02/20/18 Hydralazine Hcl* (Hydralazine Hcl*) 25 Mg Tab, 25 MG PO Q8 for 30 Days, #90 TAB Prov:ANA MARIA JOSHI 03/28/17 Insulin Glargine* (Lantus*) 100 Unit/Ml Soln, 18 UNIT SC DAILY@20 for 30 Days Prov:ANA MARIA JOSHI 03/28/17 Insulin Aspart* (Novolog Insulin Pen*) 100 Unit/Ml Soln, 6 UNIT SC WITH MEALS for 30 Days Prov:ANA MARIA JOSHI 03/28/17 Furosemide (Lasix) 20 Mg Tab, 20 MG PO DAILY for 30 Days, TAB Prov:ANA MARIA JOSHI 03/28/17 Diltiazem Hcl* (Cardizem CD*) 240 Mg Cap.sr.24h, 240 MG PO DAILY for 30 Days Prov:ANA MARIA JOSHI 03/28/17 Clopidogrel Bisulfate (Clopidogrel) 75 Mg Tablet, 75 MG PO DAILY for 30 Days, TAB Prov:ANA MARIA JOSHI 03/28/17 Atorvastatin* (Atorvastatin*) 80 Mg Tablet, 80 MG PO HS for 30 Days, TAB Prov:ANA MARIA JOSHI 03/28/17 Aspirin (Aspirin) 81 Mg Chew, 81 MG PO DAILY for 30 Days, TAB Prov:ANA MARIA JOSHI 03/28/17 Losartan Potassium* (Cozaar*) 100 Mg Tablet, 100 MG PO DAILY for 30 Days, TAB Prov:ANA MARIA JOSHI 03/28/17 Medications Current Medications Methylprednisolone Sodium Succinate (Solu-Medrol) 40 mg Q12 IV Last administered on 08/25/18 09:00; Admin Dose 40 MG; Start 08/21/18 at 09:00 Acetaminophen (Tylenol Tab) 650 mg Q4H PRN PO MILD PAIN(1-3)OR ELEVATED TEMP Last administered on 08/21/18 06:10; Admin Dose 650 MG; Start 08/21/18 at 00:00 Enoxaparin Sodium (Lovenox) 40 mg DAILY SC Last administered on 08/25/18 09:04; Admin Dose 40 MG; Start 08/21/18 at 09:00 Insulin Aspart (Novolog Insulin Pen) NOVOLOG *MILD* ALGORITHM WITH MEALS BEDTIME SC Last administered on 08/25/18 08:25; Admin Dose 2 UNIT; Start 08/21/18 at 07:55 Clopidogrel Bisulfate (plaVIX) 75 mg DAILY PO Last administered on 08/25/18 09:01; Admin Dose 75 MG; Start 08/21/18 at 09:00 Diltiazem HCl (Cardizem Cd) 240 mg DAILY PO Last administered on 08/25/18 09:01; Admin Dose 240 MG; Start 08/21/18 at 09:00 Docusate Sodium (Colace) 100 mg BID PO Last administered on 08/25/18 09:01; Ad min Dose 100 MG; Start 08/21/18 at 09:00 Furosemide (Lasix) 20 mg DAILY PO Last administered on 08/25/18 09:02; Admin Dose 20 MG; Start 08/21/18 at 09:00 Hydralazine HCl (Apresoline) 50 mg BID PO Last administered on 08/25/18 09:01; Admin Dose 50 MG; Start 08/21/18 at 09:00 Levothyroxine Sodium (Synthroid) 75 mcg BEFORE BREAKFAST PO Last administered on 08/25/18 06:03; Admin Dose 75 MCG; Start 08/21/18 at 07:00 Metformin HCl (Glucophage) 500 mg WITH BREAKFAST DINNE PO Last administered on 08/25/18at 09:00; Admin Dose 500 MG; Start 08/21/18 at 07:55 Montelukast Sodium (Singulair) 10 mg QHS PO Last administered on 08/24/18at 20:32; Admin Dose 10 MG; Start 08/21/18 at 21:00 Insulin Human NPH (Humulin N) 12 unit BID@08,20 SC Last administered on 08/25/18at 08:25; Admin Dose 12 UNIT; Start 08/21/18 at 08:00 Levofloxacin/ Dextrose 150 ml @ 100 mls/hr Q24H IVPB Last administered on at 14:40; Admin Dose 100 MLS/HR; Start 08/21/18 at 14:00; Stop 08/26/18 at 21:00 Pantoprazole (Protonix Tab) 40 mg DAILY@06 PO Last administered on 08/25/18at 06:03; Admin Dose 40 MG; Start 08/21/18 at 06:00 Miscellaneous Information 1 ea NOTE XX ; Start 08/21/18 at 00:30 Glucose (Glutose) 15 gm Q15M PRN PO DECREASED GLUCOSE; Start 08/21/18 at 00:30 Glucose (Glutose) 22.5 gm Q15M PRN PO DECREASED GLUCOSE; Start 08/21/18 at 00:30 Dextrose (D50w Syringe) 25 ml Q15M PRN IV DECREASED GLUCOSE; Start 08/21/18 at 00:30 Dextrose (D50w Syringe) 50 ml Q15M PRN IV DECREASED GLUCOSE; Start 08/21/18 at 00:30 Glucagon (Glucagen) 1 mg Q15M PRN IM DECREASED GLUCOSE; Start 08/21/18 at 00:30 Glucose (Glutose) 15 gm Q15M PRN BUCCAL DECREASED GLUCOSE; Start 08/21/18 at 00:30 Albuterol/ Ipratropium (Duoneb) 3 ml Q6H RESP THERAPY HHN Last administered on 08/25/18at 08:04; Admin Dose 3 ML; Start 08/21/18 at 02:00 Miscellaneous Information Patients own medicat... BID@10,16 XX ; Start 08/21/18 at 10:00 Ondansetron HCl (Zofran Inj) 4 mg Q4H PRN IV NAUSEA AND/OR VOMITING; Start 08/24/18 at 07:00 Diphenhydramine HCl (Benadryl) 25 mg Q6H PRN PO ITCHING Last administered on 08/25/18at 06:03; Admin Dose 25 MG; Start 08/24/18 at 07:00 Atorvastatin Calcium (Lipitor) 20 mg HS GTB Last administered on 08/24/18at 20:32; Admin Dose 20 MG; Start 08/24/18 at 21:00 Hydralazine HCl (Apresoline) 10 mg Q6H PRN IV SBP>170 Last administered on 08/25/18at 06:03; Admin Dose 10 MG; Start 08/25/18 at 00:30 Allergies: Coded Allergies: Penicillins (Unverified Allergy, Unknown, rash, 08/20/18) amoxicillin (Unverified Allergy, Unknown, rash, 08/20/18) famotidine (Unverified Allergy, Unknown, rash, 08/20/18) Social History Smoking Status: Never smoker Exam/Review of Systems Vital Signs Vitals Vital Signs Date Temp Pulse Resp B/P (MAP) Pulse Ox O2 O2 Flow FiO2 Time Delivery Rate 08/25/18 Nasal 2.0 08:10 Cannula 08/25/18 82 24 96 08:05 08/25/18 98.9 145/64 07:23 (91) Intake and Output 08/24/18 08/24/18 08/25/18 1515:00 23:00 07:00 IntakeIntake Total 800 ml 550 ml BalanceBalance 800 ml 550 ml Labs Result Diagram: 08/22/1860008/22/18 06 Results 24hrs Laboratory Tests Test 08/24/18 11:55 08/24/18 17:30 08/24/18 20:26 08/25/18 02:15 Bedside Glucose 159 184 149 193 Test 08/25/18 08:17 Bedside Glucose 189 Medications Medications Current Medications Methylprednisolone Sodium Succinate (Solu-Medrol) 40 mg Q12 IV Last administered on 08/25/18at 09:00; Admin Dose 40 MG; Start 08/21/18 at 09:00 Acetaminophen (Tylenol Tab) 650 mg Q4H PRN PO MILD PAIN(1-3)OR ELEVATED TEMP Last administered on 08/21/18at 06:10; Admin Dose 650 MG; Start 08/21/18 at 00:00 Enoxaparin Sodium (Lovenox) 40 mg DAILY SC Last administered on 08/25/18 09:04; Admin Dose 40 MG; Start 08/21/18 at 09:00 Insulin Aspart (Novolog Insulin Pen) NOVOLOG *MILD* ALGORITHM WITH MEALS BEDTIME SC Last administered on 08/25/18 08:25; Admin Dose 2 UNIT; Start 08/21/18 at 07:55 Clopidogrel Bisulfate (plaVIX) 75 mg DAILY PO Last administered on 08/25/18 09:01; Admin Dose 75 MG; Start 08/21/18 at 09:00 Diltiazem HCl (Cardizem Cd) 240 mg DAILY PO Last administered on 08/25/18 09:01; Admin Dose 240 MG; Start 08/21/18 at 09:00 Docusate Sodium (Colace) 100 mg BID PO Last administered on 08/25/18 09:01; Admin Dose 100 MG; Start 08/21/18 at 09:00 Furosemide (Lasix) 20 mg DAILY PO Last administered on 08/25/18 09:02; Admin Dose 20 MG; Start 08/21/18 at 09:00 Hydralazine HCl (Apresoline) 50 mg BID PO Last administered on 08/25/18 09:01; Admin Dose 50 MG; Start 08/21/18 at 09:00 Levothyroxine Sodium (Synthroid) 75 mcg BEFORE BREAKFAST PO Last administered on 08/25/18 06:03; Admin Dose 75 MCG; Start 08/21/18 at 07:00 Metformin HCl (Glucophage) 500 mg WITH BREAKFAST DINNE PO Last administered on 08/25/18 09:00; Admin Dose 500 MG; Start 08/21/18 at 07:55 Montelukast Sodium (Singulair) 10 mg QHS PO Last administered on 08/24/18 20:32; Admin Dose 10 MG; Start 08/21/18 at 21:00 Insulin Human NPH (Humulin N) 12 unit BID@08,20 SC Last administered on 08/25/18 08:25; Admin Dose 12 UNIT; Start 08/21/18 at 08:00 Levofloxacin/ Dextrose 150 ml @ 100 mls/hr Q24H IVPB Last administered on 5/13/19at 14:40; Admin Dose 100 MLS/HR; Start 08/21/18 at 14:00; Stop 08/26/18 at 21:00 Pantoprazole (Protonix Tab) 40 mg DAILY@06 PO Last administered on 08/25/18at 06:03; Admin Dose 40 MG; Start 08/21/18 at 06:00 Miscellaneous Information 1 ea NOTE XX ; Start 08/21/18 at 00:30 Glucose (Glutose) 15 gm Q15M PRN PO DECREASED GLUCOSE; Start 08/21/18 at 00:30 Glucose (Glutose) 22.5 gm Q15M PRN PO DECREASED GLUCOSE; Start 08/21/18 at 00:30 Dextrose (D50w Syringe) 25 ml Q15M PRN IV DECREASED GLUCOSE; Start 08/21/18 at 00:30 Dextrose (D50w Syringe) 50 ml Q15M PRN IV DECREASED GLUCOSE; Start 08/21/18 at 00:30 Glucagon (Glucagen) 1 mg Q15M PRN IM DECREASED GLUCOSE; Start 08/21/18 at 00:30 Glucose (Glutose) 15 gm Q15M PRN BUCCAL DECREASED GLUCOSE; Start 08/21/18 at 00:30 Albuterol/ Ipratropium (Duoneb) 3 ml Q6H RESP THERAPY HHN Last administered on 08/25/18at 08:04; Admin Dose 3 ML; Start 08/21/18 at 02:00 Miscellaneous Information Patients own medicat... BID@10,16 XX ; Start 08/21/18 at 10:00 Ondansetron HCl (Zofran Inj) 4 mg Q4H PRN IV NAUSEA AND/OR VOMITING; Start 08/24/18 at 07:00 Diphenhydramine HCl (Benadryl) 25 mg Q6H PRN PO ITCHING Last administered on 08/25/18at 06:03; Admin Dose 25 MG; Start 08/24/18 at 07:00 Atorvastatin Calcium (Lipitor) 20 mg HS GTB Last administered on 08/24/18at 20:32; Admin Dose 20 MG; Start 08/24/18 at 21:00 Hydralazine HCl (Apresoline) 10 mg Q6H PRN IV SBP>170 Last administered on 08/25/18at 06:03; Admin Dose 10 MG; Start 08/25/18 at 00:30 DARWIN BOSS MD August 25, 2018 11:05
[2018-08-25] MEDS: LEVOFLOXACIN 750MG/D5W (PMX) 150 ML IVPB SCH (13:08)
[2018-08-25] MEDS: LORATADINE 10 MG TAB PO SCH (13:08)
--- NOTE | 2018-08-25 14:56 | PN ---
Date/Time of Note Date/Time of Note DATE: 08/25/18 TIME: 14:53 Assessment/Plan VTE Prophylaxis Risk score (from Ns)>0 risk: 3 SCD applied (from Ns): Yes Pharmacological prophylaxis: LMWH Lines/Catheters IV [facility]from [facility] [place] Assessment/Plan Hospital Course Pt is awake alert, continues on supplemental oxygen without acute distress, sinus rhythm with 5 beats of V. tach earlier in the morning, denies any chest pain. Cardiology consult, will check BMP and magnesium. Patient complains of allover body rash, will DC Levaquin continue Claritin and Benadryl. Assessment/Plan - Asthma exacerbation, continue Solu-Medrol and Singulair. - COPD, continue breathing treatments. - Upper respiratory infection, s/p Levaquin, on Rocephin. - Hypertension. - Diabetes mellitus. Continue Lantus and pre-meal NovoLog. - Hypothyroidism, continue Synthroid. - Dyslipidemia. Continue Lipitor. 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 Further recommendations based on clinical course. Plan of care discussed with Dr. Lin. Result Diagram: 08/22/1860008/22/18600 Results 24hrs Laboratory Tests Test 08/24/18 17:30 08/24/18 20:26 08/25/18 02:15 08/25/18 08:17 Bedside Glucose 184 149 193 189 Test 08/25/18 11:52 Bedside Glucose 132 Exam/Review of Systems Exam Vitals Vital Signs Date Temp Pulse Resp B/P (MAP) Pulse Ox O2 O2 Flow FiO2 Time Delivery Rate 08/25/18 89 12:20 08/25/18 98.7 17 174/77 96 11:53 (109) 08/25/18 Nasal 2.0 08:10 Cannula Intake and Output 08/24/18 08/24/18 08/25/18 1414:59 22:59 06:59 IntakeIntake Total 800 ml 550 ml BalanceBalance 800 ml 550 ml Exam Constitutional: alert, oriented Respiratory: clear to auscultation Cardiovascular: regular rate and rhythm Gastrointestinal: soft, non-tender Extremities: normal pulses Neurological: nl mental status Results Results 24hrs Laboratory Tests Test 08/24/18 17:30 08/24/18 20:26 08/25/18 02:15 08/25/18 08:17 Bedside Glucose 184 149 193 189 Test 08/25/18 11:52 Bedside Glucose 132 Medications Medication Current Medications Methylprednisolone Sodium Succinate (Solu-Medrol) 40 mg Q12 IV Last administe red on 08/25/18 09:00; Admin Dose 40 MG; Start 08/21/18 at 09:00 Acetaminophen (Tylenol Tab) 650 mg Q4H PRN PO MILD PAIN(1-3)OR ELEVATED TEMP Last administered on 08/21/18 06:10; Admin Dose 650 MG; Start 08/21/18 at 00:00 Enoxaparin Sodium (Lovenox) 40 mg DAILY SC Last administered on 08/25/18 09:04; Admin Dose 40 MG; Start 08/21/18 at 09:00 Insulin Aspart (Novolog Insulin Pen) NOVOLOG *MILD* ALGORITHM WITH MEALS BEDTIME SC Last administered on 08/25/18 08:25; Admin Dose 2 UNIT; Start at 07:55 Clopidogrel Bisulfate (plaVIX) 75 mg DAILY PO Last administered on 08/25/18 09:01; Admin Dose 75 MG; Start 08/21/18 at 09:00 Diltiazem HCl (Cardizem Cd) 240 mg DAILY PO Last administered on 08/25/18 09:01; Admin Dose 240 MG; Start 08/21/18 at 09:00 Docusate Sodium (Colace) 100 mg BID PO Last administered on 08/25/18 09:01; Admin Dose 100 MG; Start 08/21/18 at 09:00 Furosemide (Lasix) 20 mg DAILY PO Last administered on 08/25/18 09:02; Admin Dose 20 MG; Start 08/21/18 at 09:00 Hydralazine HCl (Apresoline) 50 mg BID PO Last administered on 08/25/18 09:01; Admin Dose 50 MG; Start 08/21/18 at 09:00 Levothyroxine Sodium (Synthroid) 75 mcg BEFORE BREAKFAST PO Last administered on 08/25/18 06:03; Admin Dose 75 MCG; Start 08/21/18 at 07:00 Metformin HCl (Glucophage) 500 mg WITH BREAKFAST DINNE PO Last administered on 08/25/18 09:00; Admin Dose 500 MG; Start 08/21/18 at 07:55 Montelukast Sodium (Singulair) 10 mg QHS PO Last administered on 08/24/18at 20:32; Admin Dose 10 MG; Start 08/21/18 at 21:00 Levofloxacin/ Dextrose 150 ml @ 100 mls/hr Q24H IVPB Last administered on 08/25/18at 13:08; Admin Dose 100 MLS/HR; Start 08/21/18 at 14:00; Stop 08/26/18 at 21:00 Pantoprazole (Protonix Tab) 40 mg DAILY@06 PO Last administered on 08/25/18at 06:03; Admin Dose 40 MG; Start 08/21/18 at 06:00 Miscellaneous Information 1 ea NOTE XX ; Start 08/21/18 at 00:30 Glucose (Glutose) 15 gm Q15M PRN PO DECREASED GLUCOSE; Start 08/21/18 at 00:30 Glucose (Glutose) 22.5 gm Q15M PRN PO DECREASED GLUCOSE; Start 08/21/18 at 00:30 Dextrose (D50w Syringe) 25 ml Q15M PRN IV DECREASED GLUCOSE; Start 08/21/18 at 00:30 Dextrose (D50w Syringe) 50 ml Q15M PRN IV DECREASED GLUCOSE; Start 08/21/18 at 00:30 Glucagon (Glucagen) 1 mg Q15M PRN IM DECREASED GLUCOSE; Start 08/21/18 at 00:30 Glucose (Glutose) 15 gm Q15M PRN BUCCAL DECREASED GLUCOSE; Start 08/21/18 at 00:30 Albuterol/ Ipratropium (Duoneb) 3 ml Q6H RESP THERAPY HHN Last administered on 08/25/18at 14:30; Admin Dose 3 ML; Start 08/21/18 at 02:00 Miscellaneous Information Patients own medicat... BID@ XX ; Start 08/21/18 at 10:00 Ondansetron HCl (Zofran Inj) 4 mg Q4H PRN IV NAUSEA AND/OR VOMITING; Start 08/12 06/30 at 07:00 Diphenhydramine HCl (Benadryl) 25 mg Q6H PRN PO ITCHING Last administered on 08/25/18at 06:03; Admin Dose 25 MG; Start 08/24/18 at 07:00 Atorvastatin Calcium (Lipitor) 20 mg HS GTB Last administered on 08/24/18at 20:32; Admin Dose 20 MG; Start 08/24/18 at 21:00 Hydralazine HCl (Apresoline) 10 mg Q6H PRN IV SBP>170 Last administered on 08/25/18at 06:03; Admin Dose 10 MG; Start 08/25/18 at 00:30 Loratadine (Claritin) 10 mg DAILY PO Last administered on 08/25/18at 13:08; Admin Dose 10 MG; Start 08/25/18 at 13:00 Insulin Human NPH (Humulin N) 15 unit Q12 SC ; Start 08/25/18 at 21:00 ANA MARIA JOSHI August 25, 2018 14:56
[2018-08-25] MEDS: CEFTRIAXONE 1 GM/50 ML (PMX) 50 ML IVPB SCH (16:48)
[2018-08-25] MEDS: ONDANSETRON 4 MG INJ IV PRN (17:52)
[2018-08-25] MEDS: MONTELUKAST 10 MG TAB PO SCH (20:19)
[2018-08-25] MEDS: ATORVASTATIN 20 MG TAB GTB SCH (20:19)
[2018-08-26] VITALS (11 sets, daily range): BP systolic 128–174; BP diastolic 60–74; PULSE 64–89; RESP 16–20
[2018-08-26] MEDS: DIPHENHYDRAMINE 25 MG CAP PO PRN ×2 (00:14→21:06)
[2018-08-26] MEDS: ALBUTEROL/IPRATROPIUM (NEB) 3 ML AMP HHN SCH ×4 (02:33→19:35)
[2018-08-26] MEDS: PANTOPRAZOLE (EC) 40 MG TAB PO SCH (06:08)
[2018-08-26] MEDS: LEVOTHYROXINE 75 MCG TAB PO SCH (06:08)
--- NOTE | 2018-08-26 06:34 | CONS ---
DATE OF ADMISSION: 08/20/2018 DATE OF CONSULTATION: 08/25/2018 REFERRING PHYSICIAN: Claudia Lin MD REASON FOR CONSULTATION: Shortness of breath, hypertension. HISTORY OF PRESENT ILLNESS: Ms. Valenzuela is a 68-year-old woman known from a prior admission. At the , history of heart failure with preserved ejection fraction and history of asthma, history of di abetes and history of mild pericardial effusions before and has an of the right coronary artery. She comes to the hospital complaining of shortness of breath with wheezing. The patient lik piedad had an asthma exacerbation. She has been treated with medication and feels better now. I have been asked to see the patient in consultation and because of her history of CHF and also some arrhyth hermila, patient had a narrow complex tachycardia several , likely SVT versus , which is not sustained. I don't think any particular treatment is required. She is on diltiazem now, which will be continued for now. For now, conservative treatment is indicated. adjust the medicatio ns and is more information if her condition becomes available. I think gentle diuresis is reas onable. PAST MEDICAL HISTORY: Hypertension, dyslipidemia, history of asthma disease, history of pericardial effusion on prior examination. History of heart failure with preserved ejection fraction. She has h ypertension. ALLERGIES: THE PATIENT HAS ALLERGY TO PENICILLIN, AND FAMOTIDINE. SOCIAL HISTORY: Patient does not smoker, does not drink, does not use drugs. FAMILY HISTORY: Negative. She diabetes in the family. MEDICATIONS: 1. Hydralazine. 2. Atorvastatin. 3. . 4. Ondansetron. 5. Subcu Lovenox. 6. Plavix 75 mg once daily. 7. Diltiazem 140 mg once daily. 8. Lasix. 9. Norvasc p.o. once a day. 10. Insulin on a sliding scale. 11. Levothyroxine. 12. Metformin. REVIEW OF SYSTEMS: No fevers. No chills. No shortness of breath chest pain, respiratory arres t, acute and chronic, gastrointestinal, nausea, vomiting. . NEUROLOGIC: No focal neurological deficits. SKIN: . PHYSICAL EXAMINATION: VITAL SIGNS: Temperature is 98.9, heart rate 82, blood pressure is 145/64 HEART: . ABDOMEN: Distended. Bowel sounds present. . LABORATORY DATA: EKG with nonspecific ST-T changes. platelets 342. INR is 1.0. Her creatinine is 0.4. Troponin was negative at 0.015. ASSESSMENT AND PLAN: 1. Shortness of breath multifactorial but COPD, CHS, patient reasonable diuresis. Continue to monitor clinically. 2. History of SVT. The patient has proximally will keep electrolytes and arrange for f ollowup of the patient which are to be continued. 3. Asthma. Continue asthma exacerbation therapy. 4. . The patient appears to be reasonably well controlled. No chest pain. Troponins are neg ative. There is no indication for further risk stratification at this point. I would like to thank Dr. Lin for referring this patient for my evaluation. Dictated By: DARWIN BOSS MD ML/NTS Conf#: [id number] DID#: [id number] CC: CLAUDIA LIN MD;*EndCC*
[2018-08-26] MEDS: FUROSEMIDE 20 MG TAB PO SCH (08:26)
[2018-08-26] MEDS: LORATADINE 10 MG TAB PO SCH (08:26)
[2018-08-26] MEDS: DOCUSATE SODIUM 100 MG CAP PO SCH ×2 (08:26→21:06)
[2018-08-26] MEDS: CLOPIDOGREL 75 MG TAB PO SCH (08:26)
[2018-08-26] MEDS: DILTIAZEM (CD) 240 MG CAP PO SCH (08:27)
[2018-08-26] MEDS: METHYLPREDNISOLONE 40 MG INJ IV SCH ×2 (08:27→21:06)
[2018-08-26] MEDS: INSULIN ASPART [NOVOLOG] 3 ML PEN SC SCH ×4 (08:38→21:00)
[2018-08-26] MEDS: NPH, HUMAN INSULIN ISOPHANE 3ML VIAL SC SCH ×2 (08:39→21:17)
[2018-08-26] MEDS: ENOXAPARIN 40 MG/0.4 ML SYG SC SCH (08:39)
[2018-08-26] MEDS: metFORMIN 500 MG TAB PO SCH ×2 (08:45→18:12)
[2018-08-26] MEDS: hydrALAzine 20 MG INJ IV PRN (11:23)
--- NOTE | 2018-08-26 13:10 | PN ---
Date/Time of Note Date/Time of Note DATE: 08/26/18 TIME: 13:02 Assessment/Plan VTE Prophylaxis Risk score (from Ns)>0 risk: 3 SCD applied (from Ns): Yes Pharmacological prophylaxis: LMWH Lines/Catheters IV C[facility]from [facility] Saline Lock Assessment/Plan Hospital Course Patient's continues to be monitored on telemetry currently in sinus rhythm no arrhythmia however elevated BP to systolic 170s patient is currently on hydralazine and Cardizem will add lisinopril, patient continues on supplemental oxygen. All over body rash slightly improved. Assessment/Plan - Possible allergic reaction, continue Claritin and Benadryl. - Episode of cardiac arrhythmia on 08/25/2018, Dr. Rodrigez is following in cardiology consultation. - Asthma exacerbation, continue Solu-Medrol and Singulair. - COPD, continue breathing treatments. - Upper respiratory infection, s/p Levaquin, on Rocephin. - Hypertension. - Diabetes mellitus globin A1c 7.0. Continue Lantus and pre-meal NovoLog. - Hypothyroidism, continue Synthroid. - Dyslipidemia. Continue Lipitor. 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 Further recommendations based on clinical course. Plan of care discussed with Dr. Lin. Result Diagram: 08/26/18 0630 08/26/18 0630 Results 24hrs Laboratory Tests Test 08/25/18 17:16 08/25/18 20:21 08/26/18 01:35 08/26/18 06:30 Bedside Glucose 212 226 H 205 White Blood Count 6.9 # Red Blood Count 4.59 Hemoglobin 11.2 L Hematocrit 35.6 L Mean Corpuscular 77.6 L Volume Mean Corpuscular 24.4 L Hemoglobin Mean Corpuscular 31.5 L Hemoglobin Concent Red Cell 17.4 H Distribution Width Platelet Count 375 Mean Platelet Volume 10.7 H Immature 2.900 H Granulocytes % Neutrophils % 78.0 H Lymphocytes % 12.2 L Monocytes % 6.8 Eosinophils % 0.0 Basophils % 0.1 Nucleated Red Blood 0.0 Cells % Immature 0.200 H Granulocytes # Neutrophils # 5.4 Lymphocytes # 0.8 Monocytes # 0.5 Eosinophils # 0.0 Basophils # 0.0 Nucleated Red Blood 0.0 Cells # Sodium Level 135 Potassium Level 4.5 Chloride Level 94 L Carbon Dioxide Level 33 H Anion Gap 8 Blood Urea Nitrogen 29 H Creatinine 0.59 Est Glomerular > 60 Filtrat Rate mL/min Glucose Level 213 Hemoglobin A1c 7.0 H Calcium Level 9.2 Magnesium Level 2.1 Test 08/26/18 08:22 08/26/18 12:03 Bedside Glucose 156 176 Exam/Review of Systems Exam Vitals Vital Signs Date Temp Pulse Resp B/P (MAP) Pulse Ox O2 O2 Flow FiO2 Time Delivery Rate 08/26/18 80 155/68 11:39 (97) 08/26/18 98.0 18 98 Nasal 11:16 Cannula 08/26/18 2.0 07:38 Intake and Output 08/25/18 08/25/18 08/26/18 1515:00 23:00 07:00 IntakeIntake Total 1050 ml 600 ml BalanceBalance 1050 ml 600 ml Exam Constitutional: alert, oriented Respiratory: clear to auscultation Cardiovascular: regular rate and rhythm Gastrointestinal: soft, non-tender Extremities: normal pulses Neurological: nl mental status Results Results 24hrs Laboratory Tests Test 08/25/18 17:16 08/25/18 20:21 08/26/18 01:35 08/26/18 06:30 Bedside Glucose 212 226 H 205 White Blood Count 6.9 # Red Blood Count 4.59 Hemoglobin 11.2 L Hematocrit 35.6 L Mean Corpuscular 77.6 L Volume Mean Corpuscular 24.4 L Hemoglobin Mean Corpuscular 31.5 L Hemoglobin Concent Red Cell 17.4 H Distribution Width Platelet Count 375 Mean Platelet Volume 10.7 H Immature 2.900 H Granulocytes % Neutrophils % 78.0 H Lymphocytes % 12.2 L Monocytes % 6.8 Eosinophils % 0.0 Basophils % 0.1 Nucleated Red Blood 0.0 Cells % Immature 0.200 H Granulocytes # Neutrophils # 5.4 Lymphocytes # 0.8 Monocytes # 0.5 Eosinophils # 0.0 Basophils # 0.0 Nucleated Red Blood 0.0 Cells # Sodium Level 135 Potassium Level 4.5 Chloride Level 94 L Carbon Dioxide Level 33 H Anion Gap 8 Blood Urea Nitrogen 29 H Creatinine 0.59 Est Glomerular > 60 Filtrat Rate mL/min Glucose Level 213 Hemoglobin A1c 7.0 H Calcium Level 9.2 Magnesium Level 2.1 Test 08/26/18 08:22 08/26/18 12:03 Bedside Glucose 156 176 Medications Medication Current Medications Methylprednisolone Sodium Succinate (Solu-Medrol) 40 mg Q12 IV Last administered on 08/26/18 08:27; Admin Dose 40 MG; Start 08/21/18 at 09:00 Acetaminophen (Tylenol Tab) 650 mg Q4H PRN PO MILD PAIN(1-3)OR ELEVATED TEMP Last administered on 08/21/18 06:10; Admin Dose 650 MG; Start 08/21/18 at 00:00 Enoxaparin Sodium (Lovenox) 40 mg DAILY SC Last administered on 08/26/18 08:39; Admin Dose 40 MG; Start 08/21/18 at 09:00 Insulin Aspart (Novolog Insulin Pen) NOVOLOG *MILD* ALGORITHM WITH MEALS BEDTIME SC Last administered on 08/26/18 12:10; Admin Dose 1 UNIT; Start 08/21/18 at 07:55 Clopidogrel Bisulfate (plaVIX) 75 mg DAILY PO Last administered on 08/26/18 08:26; Admin Dose 75 MG; Start 08/21/18 at 09:00 Diltiazem HCl (Cardizem Cd) 240 mg DAILY PO Last administered on 08/26/18 08:27; Admin Dose 240 MG; Start 08/21/18 at 09:00 Docusate Sodium (Colace) 100 mg BID PO Last administered on 08/26/18 08:26; Admin Dose 100 MG; Start 08/21/18 at 09:00 Furosemide (Lasix) 20 mg DAILY PO Last administered on 08/26/18 08:26; Admin D ose 20 MG; Start 08/21/18 at 09:00 Hydralazine HCl (Apresoline) 50 mg BID PO Last administered on 08/26/18 08:27; Admin Dose 50 MG; Start 08/21/18 at 09:00 Levothyroxine Sodium (Synthroid) 75 mcg BEFORE BREAKFAST PO Last administered on 08/26/18 06:08; Admin Dose 75 MCG; Start 08/21/18 at 07:00 Metformin HCl (Glucophage) 500 mg WITH BREAKFAST DINNE PO Last administered on 08/26/18 08:45; Admin Dose 500 MG; Start 08/21/18 at 07:55 Montelukast Sodium (Singulair) 10 mg QHS PO Last administered on 5/14/19at 20:19; Admin Dose 10 MG; Start 08/21/18 at 21:00 Pantoprazole (Protonix Tab) 40 mg DAILY@06 PO Last administered on 08/26/18at 06:08; Admin Dose 40 MG; Start 08/21/18 at 06:00 Miscellaneous Information 1 ea NOTE XX ; Start 08/21/18 at 00:30 Glucose (Glutose) 15 gm Q15M PRN PO DECREASED GLUCOSE; Start 08/21/18 at 00:30 Glucose (Glutose) 22.5 gm Q15M PRN PO DECREASED GLUCOSE; Start 08/21/18 at 00:30 Dextrose (D50w Syringe) 25 ml Q15M PRN IV DECREASED GLUCOSE; Start 08/21/18 at 00:30 Dextrose (D50w Syringe) 50 ml Q15M PRN IV DECREASED GLUCOSE; Start 08/21/18 at 00:30 Glucagon (Glucagen) 1 mg Q15M PRN IM DECREASED GLUCOSE; Start 08/21/18 at 00:30 Glucose (Glutose) 15 gm Q15M PRN BUCCAL DECREASED GLUCOSE; Start 08/21/18 at 00:30 Albuterol/ Ipratropium (Duoneb) 3 ml Q6H RESP THERAPY HHN Last administered on 08/26/18at 07:36; Admin Dose 3 ML; Start 08/21/18 at 02:00 Miscellaneous Information Patients own medicat... BID@10,16 XX ; Start 08/21/18 at 10:00 Ondansetron HCl (Zofran Inj) 4 mg Q4H PRN IV NAUSEA AND/OR VOMITING Last administered on 08/25/18at 17:52; Admin Dose 4 MG; Start 08/24/18 at 07:00 Diphenhydramine HCl (Benadryl) 25 mg Q6H PRN PO ITCHING Last administered on 08/26/18at 00:14; Admin Dose 25 MG; Start 08/24/18 at 07:00 Atorvastatin Calcium (Lipitor) 20 mg HS GTB Last administered on 08/25/18at 20:19; Admin Dose 20 MG; Start 08/24/18 at 21:00 Hydralazine HCl (Apresoline) 10 mg Q6H PRN IV SBP>170 Last administered on 08/26/18at 11:23; Admin Dose 10 MG; Start 08/25/18 at 00:30 Loratadine (Claritin) 10 mg DAILY PO Last administered on 08/26/18at 08:26; Admin Dose 10 MG; Start 08/25/18 at 13:00 Insulin Human NPH (Humulin N) 15 unit Q12 SC Last administered on 08/26/18at 08:39; Admin Dose 15 UNIT; Start 08/25/18 at 21:00 Ceftriaxone Sodium 50 ml @ 100 mls/hr Q24H IVPB Last administered on 08/25/18at 16:48; Admin Dose 100 MLS/HR; Start 08/25/18 at 16:00 Empaglifozin (Jardiance) 10 mg DAILY@08 PO ; Start 08/26/18 at 12:00 ANA MARIA JOSHI August 26, 2018 13:10
--- NOTE | 2018-08-26 15:29 | CONS ---
Assessment/Plan Assessment/Plan Hospital Course (Demo Recall) IMP: 1.CHF-? systolic vs diastolic acute on chronic 2.sob 3.asthma 4.HTN 5.DM REcc: -Tele -Continue plavix -Uptitrate ACEI/hydralazine -Continue diltiazem -Increase lasix diuresis -Continue steroids/bronchodilators -compete renny -check echo to reasses EF Consultation Date/Type/Reason Admit Date/Time August 20, 2018 at 17:57 Initial Consult Date 08/25/18 Type of Consult Cardiology Reason for Consultation sob Requesting Provider: CLAUDIA FOSTER MD Date/Time of Note DATE: 08/26/18 TIME: 15:20 Exam/Review of Systems Vital Signs Vitals Vital Signs Date Temp Pulse Resp B/P (MAP) Pulse Ox O2 O2 Flow FiO2 Time Delivery Rate 08/26/18 98.3 79 16 146/64 96 Room Air 15:12 (91) 08/26/18 2.0 08:10 Intake and Output 08/25/18 08/25/18 08/26/18 1414:59 22:59 06:59 IntakeIntake Total 1050 ml 600 ml BalanceBalance 1050 ml 600 ml Exam Exam Review of Systems: CONSTITUTIONAL: No fevers, chills. PULMONARY: ongoing sob CARDIOVASCULAR: No chest pain/palpitations GASTROINTESTINAL: No nausea/vomiting. GENITOURINARY: No hematuria/dysuria. MUSCULOSKELETAL: No myagias/arthalgias. PSYCHIATRIC: The patient denies depression. NEUROLOGIC: No weakness Psych: no complaints Head: normocephalic ENMT: mucosa pink and moist Neck: supple, jvd (9 cm water) Respiratory: diminished breath sounds (at bases/B) Cardiovascular: regular rate and rhythm Gastrointestinal: soft, non-tender Musculoskeletal: muscle tone (normal) Extremities: edema (trace with chronci venous stasis changes) Neurological: other (No focal deficits) Labs Result Diagram: 08/26/18 0630 08/26/18 0630 Results 24hrs Laboratory Tests Test 08/25/18 17:16 08/25/18 20:21 08/26/18 01:35 08/26/18 06:30 Bedside Glucose 212 226 H 205 White Blood Count 6.9 # Red Blood Count 4.59 Hemoglobin 11.2 L Hematocrit 35.6 L Mean Corpuscular 77.6 L Volume Mean Corpuscular 24.4 L Hemoglobin Mean Corpuscular 31.5 L Hemoglobin Concent Red Cell 17.4 H Distribution Width Platelet Count 375 Mean Platelet Volume 10.7 H Immature 2.900 H Granulocytes % Neutrophils % 78.0 H Lymphocytes % 12.2 L Monocytes % 6.8 Eosinophils % 0.0 Basophils % 0.1 Nucleated Red Blood 0.0 Cells % Immature 0.200 H Granulocytes # Neutrophils # 5.4 Lymphocytes # 0.8 Monocytes # 0.5 Eosinophils # 0.0 Basophils # 0.0 Nucleated Red Blood 0.0 Cells # Sodium Level 135 Potassium Level 4.5 Chloride Level 94 L Carbon Dioxide Level 33 H Anion Gap 8 Blood Urea Nitrogen 29 H Creatinine 0.59 Est Glomerular > 60 Filtrat Rate mL/min Glucose Level 213 Hemoglobin A1c 7.0 H Calcium Level 9.2 Magnesium Level 2.1 Test 08/26/18 08:22 08/26/18 12:03 Bedside Glucose 156 176 Medications Medications Current Medications Methylprednisolone Sodium Succinate (Solu-Medrol) 40 mg Q12 IV Last administered on 08/26/18 08:27; Admin Dose 40 MG; Start 08/21/18 at 09:00 Acetaminophen (Tylenol Tab) 650 mg Q4H PRN PO MILD PAIN(1-3)OR ELEVATED TEMP Last administered on 08/21/18 06:10; Admin Dose 650 MG; Start 08/21/18 at 00:00 Enoxaparin Sodium (Lovenox) 40 mg DAILY SC Last administered on 08/26/18 08:39; Admin Dose 40 MG; Start 08/21/18 at 09:00 Insulin Aspart (Novolog Insulin Pen) NOVOLOG *MILD* ALGORITHM WITH MEALS BEDTIME SC Last administered on 08/26/18 12:10; Admin Dose 1 UNIT; Start 08/21/18 at 07:55 Clopidogrel Bisulfate (plaVIX) 75 mg DAILY PO Last administered on 08/26/18 08:26; Admin Dose 75 MG; Start 08/21/18 at 09:00 Diltiazem HCl (Cardizem Cd) 240 mg DAILY PO Last administered on 08/26/18 08:27; Admin Dose 240 MG; Start 08/21/18 at 09:00 Docusate Sodium (Colace) 100 mg BID PO Last administered on 08/26/18 08:26; Admin Dose 100 MG; Start 08/21/18 at 09:00 Furosemide (Lasix) 20 mg DAILY PO Last administered on 08/26/18 08:26; Admin Dose 20 MG; Start 08/21/18 at 09:00 Hydralazine HCl (Apresoline) 50 mg BID PO Last administered on 08/26/18 08:27; Admin Dose 50 MG; Start 08/21/18 at 09:00 Levothyroxine Sodium (Synthroid) 75 mcg BEFORE BREAKFAST PO Last administered on 08/26/18 06:08; Admin Dose 75 MCG; Start 08/21/18 at 07:00 Metformin HCl (Glucophage) 500 mg WITH BREAKFAST DINNE PO Last administered on 08/26/18at 08:45; Admin Dose 500 MG; Start 08/21/18 at 07:55 Montelukast Sodium (Singulair) 10 mg QHS PO Last administered on 08/25/18at 20:19; Admin Dose 10 MG; Start 08/21/18 at 21:00 Pantoprazole (Protonix Tab) 40 mg DAILY@06 PO Last administered on 08/26/18at 06:08; Admin Dose 40 MG; Start 08/21/18 at 06:00 Miscellaneous Information 1 ea NOTE XX ; Start 08/21/18 at 00:30 Glucose (Glutose) 15 gm Q15M PRN PO DECREASED GLUCOSE; Start 08/21/18 at 00:30 Glucose (Glutose) 22.5 gm Q15M PRN PO DECREASED GLUCOSE; Start 08/21/18 at 00:30 Dextrose (D50w Syringe) 25 ml Q15M PRN IV DECREASED GLUCOSE; Start 08/21/18 at 00:30 Dextrose (D50w Syringe) 50 ml Q15M PRN IV DECREASED GLUCOSE; Start 08/21/18 at 00:30 Glucagon (Glucagen) 1 mg Q15M PRN IM DECREASED GLUCOSE; Start 08/21/18 at 00:30 Glucose (Glutose) 15 gm Q15M PRN BUCCAL DECREASED GLUCOSE; Start 08/21/18 at 00:30 Albuterol/ Ipratropium (Duoneb) 3 ml Q6H RESP THERAPY HHN Last administered on 08/26/18at 07:36; Admin Dose 3 ML; Start 08/21/18 at 02:00 Miscellaneous Information Patients own medicat... BID@10,16 XX ; Start 08/21/18 at 10:00 Ondansetron HCl (Zofran Inj) 4 mg Q4H PRN IV NAUSEA AND/OR VOMITING Last administered on 08/25/18at 17:52; Admin Dose 4 MG; Start 08/24/18 at 07:00 Diphenhydramine HCl (Benadryl) 25 mg Q6H PRN PO ITCHING Last administered on 08/26/18at 00:14; Admin Dose 25 MG; Start 08/24/18 at 07:00 Atorvastatin Calcium (Lipitor) 20 mg HS GTB Last administered on 08/25/18 20:19; Admin Dose 20 MG; Start 08/24/18 at 21:00 Hydralazine HCl (Apresoline) 10 mg Q6H PRN IV SBP>170 Last administered on 08/26/18at 11:23; Admin Dose 10 MG; Start 08/25/18 at 00:30 Loratadine (Claritin) 10 mg DAILY PO Last administered on 08/26/18 08:26; Admin Dose 10 MG; Start 08/25/18 at 13:00 Insulin Human NPH (Humulin N) 15 unit Q12 SC Last administered on 08/26/18 08:39; Admin Dose 15 UNIT; Start 08/25/18 at 21:00 Ceftriaxone Sodium 50 ml @ 100 mls/hr Q24H IVPB Last administered on 08/25/18at 16:48; Admin Dose 100 MLS/HR; Start 08/25/18 at 16:00 Empaglifozin (Jardiance) 10 mg DAILY@08 PO ; Start 08/26/18 at 12:00 Lisinopril (Zestril) 10 mg DAILY NGT ; Start 08/26/18 at 13:30 JUSTNI ARCE August 26, 2018 15:29
--- NOTE | 2018-08-26 17:36 | RADRPT ---
Echocardiogram Report Patient Name: NORM GILBERTPatient ID: [id number] : 1950 (68y 1m)Study Date: 08/26/2018 7:53:30 AM Gender: FAccession #: [id number] Tech: Valeriano Junior [facility] Location: [facility] Ref.Physician: CLAUDIA FOSTER Height(Cm): BSA: Weight(Kg): Quality: AdequateOrder Physician: CLAUDIA FOSTER Account #: Procedures: Echocardiographic Report: Transthoracic echocardiogram with complete 2D, M-Mode, and doppler examination. Indications: Cardiomyopathy. Measurements: 2D/M Mode Doppler Measurement Value Normal Range Measurement Value Normal Range LVIDd 2D 2.6 [ 3.8 - 5.2 ] cm MARYCARMEN VTI 1.8 [ 2.0 - 4.0 ] cm2 LVIDs 2D 1.5 [ 2.2 - 3.5 ] cm AV Mean Shar 1.6 [ 70.0 - 90.0 ] cm/sec LVPWd 2D 2.1 [ 0.6 - 0.9 ] cm AV Mean PG 13.0 [ 2.0 - 4.0 ] mmHg IVSd 2D 1.8 [ 0.6 - 0.9 ] cm AV VTI 60.3 cm AoR Diam 2D 2.4 [ 2.3 - 3.1 ] cm LVOT Mean Shar 1.0 [ 60.0 - 80.0 ] cm/sec EDV 2D 25.3 [ 46.0 - 106.0 ] ml LVOT Mean PG 5.0 [ 1.0 - 3.0 ] mmHg ESV 2D 5.8 [ 14.0 - 42.0 ] ml LVOT Peak Shar 1.4 [ 70.0 - 110.0 ] cm/sec EF 2D 77.3 [ 54.0 - 74.0 ] percent LVOT Peak PG 8.0 [ 2.0 - 6.0 ] mmHg LA Dimen 2D 4.4 [ 2.7 - 3.8 ] cm LVOT VTI 33.6 [ 20.0 - 30.0 ] cm LVOT Diam 2.0 [ 2.1 - 2.5 ] cm MV E Peak Shar 1.4 [ 60.0 - 130.0 ] cm/sec MV A Peak Shar 1.5 [ 100.0 - 120.0 ] cm/sec MV E/A 0.9 [ 0.8 - 1.5 ] ratio MV Decel Time 229 [ 104 - 258 ] msec Lat E` Shar 0.1 [ 10.0 - 15.0 ] cm/sec Lateral E/E` 26.1 [ 1.0 - 2.0 ] ratio MV E/A 0.9 [ 0.8 - 1.5 ] ratio TR Peak Shar 3.0 [ 100.0 - 280.0 ] cm/sec TR Peak PG 36.0 mmHg RVSP 39.0 [ 10.0 - 36.0 ] mmHg RA Pressure 3.0 mmHg Findings: Left Ventricle: Normal left ventricular systolic function. Normal left ventricular cavity size. Severe concentric left ventricular hypertrophy. Ejection fraction is visually estimated at 60-65 %. Tissue Doppler/Mitral Doppler indices are consistent with impaired relaxation (Stage I diastolic dysfunction). Right Ventricle: Normal right ventricular size. Normal right ventricular systolic function. Left Atrium: There is mild enlargement of left atrium. Right Atrium: The right atrium is normal in size. Mitral Valve: Mitral valve leaflets appear moderately thickened. Mild mitral annular calcification. Trace mitral regurgitation. Aortic Valve: Mild aortic stenosis. Aortic valve Max velocity 2.66 m/sec. Max PG 27.00 mmHg. Mean PG 13.00 mmHg. Aortic valve area 1.75 cm2. Mild aortic valve regurgitation. Tricuspid Valve: Normal appearance of the tricuspid valve. Estimated peak PA systolic pressure 39 mmHg. There is mild tricuspid regurgitation. Pulmonic Valve: Pulmonic valve not well visualized. Pericardium: Small to moderate pericardial effusion. Aorta: Normal aortic root. IVC: Normal size and normal respiratory collapse consistent with normal right atrial pressure. Conclusions: Normal left ventricular systolic function. Normal left ventricular cavity size. Severe concentric left ventricular hypertrophy. Ejection fraction is visually estimated at 60-65 %. Tissue Doppler/Mitral Doppler indices are consistent with impaired relaxation (Stage I diastolic dysfunction). There is mild enlargement of left atrium. Mitral valve leaflets appear moderately thickened. Mild mitral annular calcification. Trace mitral regurgitation. Mild aortic stenosis. Aortic valve Max velocity 2.66 m/sec. Max PG 27.00 mmHg. Mean PG 13.00 mmHg. Aortic valve area 1.75 cm2. Mild aortic valve regurgitation. Normal appearance of the tricuspid valve. Estimated peak PA systolic pressure 39 mmHg. There is mild tricuspid regurgitation. Small to moderate pericardial effusion. Electronically Signed By: Chema Moreno 2018-08-26 17:35:55 PDT
[2018-08-26] MEDS: EMPAGLIFLOZIN 10 MG TABLET PO SCH ×2 (18:02→18:13)
[2018-08-26] MEDS: LISINOPRIL 10 MG TAB NGT SCH (18:13)
[2018-08-26] MEDS: CEFTRIAXONE 1 GM/50 ML (PMX) 50 ML IVPB SCH (18:14)
[2018-08-26] MEDS: MONTELUKAST 10 MG TAB PO SCH (21:06)
[2018-08-26] MEDS: ATORVASTATIN 20 MG TAB GTB SCH (21:06)
[2018-08-27] VITALS (9 sets, daily range): BP systolic 136–160; BP diastolic 64–100; PULSE 69–78; RESP 18–20
[2018-08-27] MEDS: ALBUTEROL/IPRATROPIUM (NEB) 3 ML AMP HHN SCH ×4 (01:25→20:10)
[2018-08-27] MEDS: DIPHENHYDRAMINE 25 MG CAP PO PRN (05:39)
[2018-08-27] MEDS: PANTOPRAZOLE (EC) 40 MG TAB PO SCH (05:39)
[2018-08-27] MEDS: LEVOTHYROXINE 75 MCG TAB PO SCH (05:39)
[2018-08-27] MEDS: INSULIN ASPART [NOVOLOG] 3 ML PEN SC SCH ×4 (08:00→20:36)
[2018-08-27] MEDS: metFORMIN 500 MG TAB PO SCH ×2 (09:10→17:40)
[2018-08-27] MEDS: METHYLPREDNISOLONE 40 MG INJ IV SCH ×2 (09:20→20:30)
[2018-08-27] MEDS: LORATADINE 10 MG TAB PO SCH (09:21)
[2018-08-27] MEDS: CLOPIDOGREL 75 MG TAB PO SCH (09:21)
[2018-08-27] MEDS: DOCUSATE SODIUM 100 MG CAP PO SCH ×2 (09:21→20:30)
[2018-08-27] MEDS: EMPAGLIFLOZIN 10 MG TABLET PO SCH (09:22)
[2018-08-27] MEDS: DILTIAZEM (CD) 240 MG CAP PO SCH (09:23)
[2018-08-27] MEDS: FUROSEMIDE 20 MG TAB PO SCH (09:23)
[2018-08-27] MEDS: ENOXAPARIN 40 MG/0.4 ML SYG SC SCH (09:34)
[2018-08-27] MEDS: NPH, HUMAN INSULIN ISOPHANE 3ML VIAL SC SCH ×2 (09:35→21:01)
[2018-08-27] MEDS: LISINOPRIL 10 MG TAB NGT SCH (09:42)
--- NOTE | 2018-08-27 12:05 | PN ---
Date/Time of Note Date/Time of Note DATE: 08/27/18 TIME: 12:03 Assessment/Plan VTE Prophylaxis Risk score (from Ns)>0 risk: 3 SCD applied (from Ns): Yes Pharmacological prophylaxis: LMWH Lines/Catheters IV Catheter Type (from [facility]): Saline Lock Assessment/Plan Hospital Course Patient continues on telemetry floor sinus rhythm with frequent PVC and PACs, continued on supplemental oxygen will taper steroids. Rash is improving. PT eval. Assessment/Plan - Possible allergic reaction, continue Claritin and Benadryl. - Episode of cardiac arrhythmia on 08/25/2018, Dr. Rodrigez is following in cardiology consultation. - Asthma exacerbation, continue Solu-Medrol and Singulair. - COPD, continue breathing treatments. - Upper respiratory infection, s/p Levaquin, on Rocephin. - Hypertension. Dr. Moreno is following in cardiology consultation. - Diabetes mellitus globin A1c 7.0. Continue Lantus and pre-meal NovoLog. - Hypothyroidism, continue Synthroid. - Dyslipidemia. Continue Lipitor. 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 Further recommendations based on clinical course. Plan of care discussed with Dr. Lin. Result Diagram: 08/26/18 0630 08/26/18 0630 Results 24hrs Laboratory Tests Test 08/26/18 17:14 08/26/18 18:00 08/26/18 21:04 08/27/18 00:37 Troponin I < 0.012 < 0.012 Bedside Glucose 191 133 Test 08/27/18 02:32 08/27/18 08:23 Bedside Glucose 128 118 Exam/Review of Systems Exam Vitals Vital Signs Date Temp Pulse Resp B/P (MAP) Pulse Ox O2 O2 Flow FiO2 Time Delivery Rate 08/27/18 98.3 74 18 157/67 95 Nasal 11:06 (97) Cannula 08/27/18 2.0 08:05 Intake and Output 08/26/18 08/26/18 08/27/18 1515:00 23:00 07:00 IntakeIntake Total 850 ml 400 ml BalanceBalance 850 ml 400 ml Exam Constitutional: alert, oriented Respiratory: clear to auscultation Cardiovascular: regular rate and rhythm Gastrointestinal: soft, non-tender Extremities: normal pulses Neurological: nl mental status Results Results 24hrs Laboratory Tests Test 08/26/18 17:14 08/26/18 18:00 08/26/18 21:04 08/27/18 00:37 Troponin I < 0.012 < 0.012 Bedside Glucose 191 133 Test 08/27/18 02:32 08/27/18 08:23 Bedside Glucose 128 118 Medications Medication Current Medications Methylprednisolone Sodium Succinate (Solu-Medrol) 40 mg Q12 IV Last administered on 08/27/18 09:20; Admin Dose 40 MG; Start 08/21/18 at 09:00 Acetaminophen (Tylenol Tab) 650 mg Q4H PRN PO MILD PAIN(1-3)OR ELEVATED TEMP Last administered on 08/21/18 06:10; Admin Dose 650 MG; Start 08/21/18 at 00:00 Enoxaparin Sodium (Lovenox) 40 mg DAILY SC Last administered on 08/27/18 09:34; Admin Dose 40 MG; Start 08/21/18 at 09:00 Insulin Aspart (Novolog Insulin Pen) NOVOLOG *MILD* ALGORITHM WITH MEALS BEDTIME SC Last administered on 08/26/18 18:09; Admin Dose 2 UNIT; Start 08/21/18 at 07:55 Clopidogrel Bisulfate (plaVIX) 75 mg DAILY PO Last administered on 08/27/18 09:21; Admin Dose 75 MG; Start 08/21/18 at 09:00 Diltiazem HCl (Cardizem Cd) 240 mg DAILY PO Last administered on 08/27/18 09:23; Admin Dose 240 MG; Start 08/21/18 at 09:00 Docusate Sodium (Colace) 100 mg BID PO Last administered on 08/27/18 09:21; Admin Dose 100 MG; Start 08/21/18 at 09:00 Furosemide (Lasix) 20 mg DAILY PO Last administered on 08/27/18 09:23; Admin Dose 20 MG; Start 08/21/18 at 09:00 Hydralazine HCl (Apresoline) 50 mg BID PO Last administered on 08/27/18 09:22; Admin Dose 50 MG; Start 08/21/18 at 09:00 Levothyroxine Sodium (Synthroid) 75 mcg BEFORE BREAKFAST PO Last administered on 08/27/18 05:39; Admin Dose 75 MCG; Start 08/21/18 at 07:00 Metformin HCl (Glucophage) 500 mg WITH BREAKFAST DINNE PO Last administered on 08/27/18at 09:10; Admin Dose 500 MG; Start 08/21/18 at 07:55 Montelukast Sodium (Singulair) 10 mg QHS PO Last administered on 08/26/18at 21:06; Admin Dose 10 MG; Start 08/21/18 at 21:00 Pantoprazole (Protonix Tab) 40 mg DAILY@06 PO Last administered on 08/27/18at 05:39; Admin Dose 40 MG; Start 08/21/18 at 06:00 Miscellaneous Information 1 ea NOTE XX ; Start 08/21/18 at 00:30 Glucose (Glutose) 15 gm Q15M PRN PO DECREASED GLUCOSE; Start 08/21/18 at 00:30 Glucose (Glutose) 22.5 gm Q15M PRN PO DECREASED GLUCOSE; Start 08/21/18 at 00:30 Dextrose (D50w Syringe) 25 ml Q15M PRN IV DECREASED GLUCOSE; Start 08/21/18 at 00:30 Dextrose (D50w Syringe) 50 ml Q15M PRN IV DECREASED GLUCOSE; Start 08/21/18 at 00:30 Glucagon (Glucagen) 1 mg Q15M PRN IM DECREASED GLUCOSE; Start 08/21/18 at 00:30 Glucose (Glutose) 15 gm Q15M PRN BUCCAL DECREASED GLUCOSE; Start 08/21/18 at 00:30 Albuterol/ Ipratropium (Duoneb) 3 ml Q6H RESP THERAPY HHN Last administered on 08/27/18at 07:59; Admin Dose 3 ML; Start 08/21/18 at 02:00 Miscellaneous Information Patients own medicat... BID@ XX ; Start 08/21/18 at 10:00 Ondansetron HCl (Zofran Inj) 4 mg Q4H PRN IV NAUSEA AND/OR VOMITING Last administered on 08/25/18at 17:52; Admin Dose 4 MG; Start 08/24/18 at 07:00 Diphenhydramine HCl (Benadryl) 25 mg Q6H PRN PO ITCHING Last administered on 08/27/18at 05:39; Admin Dose 25 MG; Start 08/24/18 at 07:00 Atorvastatin Calcium (Lipitor) 20 mg HS GTB Last administered on 08/26/18 21:06; Admin Dose 20 MG; Start 08/24/18 at 21:00 Hydralazine HCl (Apresoline) 10 mg Q6H PRN IV SBP>170 Last administered on 08/26/18 11:23; Admin Dose 10 MG; Start 08/25/18 at 00:30 Loratadine (Claritin) 10 mg DAILY PO Last administered on 08/27/18 09:21; Admin Dose 10 MG; Start 08/25/18 at 13:00 Insulin Human NPH (Humulin N) 15 unit Q12 SC Last administered on 08/27/18 09:35; Admin Dose 15 UNIT; Start 08/25/18 at 21:00 Ceftriaxone Sodium 50 ml @ 100 mls/hr Q24H IVPB Last administered on 08/26/18 18:14; Admin Dose 100 MLS/HR; Start 08/25/18 at 16:00 Empaglifozin (Jardiance) 10 mg DAILY@08 PO Last administered on 08/27/18 09:22; Admin Dose 10 MG; Start 08/26/18 at 12:00 Lisinopril (Zestril) 10 mg DAILY NGT Last administered on 08/27/18 09:42; Admin Dose 10 MG; Start 08/26/18 at 13:30 ANA MARIA JOSHI August 27, 2018 12:05
[2018-08-27] MEDS: CEFTRIAXONE 1 GM/50 ML (PMX) 50 ML IVPB SCH (16:58)
[2018-08-27] MEDS: MONTELUKAST 10 MG TAB PO SCH (20:30)
[2018-08-27] MEDS: ATORVASTATIN 20 MG TAB GTB SCH (20:30)
[2018-08-28] VITALS (12 sets, daily range): BP systolic 121–160; BP diastolic 56–74; PULSE 64–81; RESP 18–20
[2018-08-28] MEDS: DIPHENHYDRAMINE 25 MG CAP PO PRN (00:22)
[2018-08-28] MEDS: ALBUTEROL/IPRATROPIUM (NEB) 3 ML AMP HHN SCH ×4 (02:32→21:07)
[2018-08-28] MEDS: PANTOPRAZOLE (EC) 40 MG TAB PO SCH (06:36)
[2018-08-28] MEDS: LEVOTHYROXINE 75 MCG TAB PO SCH (06:36)
[2018-08-28] MEDS: INSULIN ASPART [NOVOLOG] 3 ML PEN SC SCH ×4 (07:55→20:45)
[2018-08-28] MEDS: metFORMIN 500 MG TAB PO SCH ×2 (07:57→17:35)
[2018-08-28] MEDS: EMPAGLIFLOZIN 10 MG TABLET PO SCH (07:58)
[2018-08-28] MEDS: METHYLPREDNISOLONE 40 MG INJ IV SCH (08:00)
[2018-08-28] MEDS: LISINOPRIL 10 MG TAB NGT SCH ×2 (08:01→20:12)
[2018-08-28] MEDS: DOCUSATE SODIUM 100 MG CAP PO SCH ×2 (08:02→20:13)
[2018-08-28] MEDS: DILTIAZEM (CD) 240 MG CAP PO SCH (08:02)
[2018-08-28] MEDS: CLOPIDOGREL 75 MG TAB PO SCH (08:02)
[2018-08-28] MEDS: LORATADINE 10 MG TAB PO SCH (08:02)
[2018-08-28] MEDS: FUROSEMIDE 20 MG TAB PO SCH ×2 (08:02→17:36)
[2018-08-28] MEDS: NPH, HUMAN INSULIN ISOPHANE 3ML VIAL SC SCH ×2 (08:23→20:14)
[2018-08-28] MEDS: ENOXAPARIN 40 MG/0.4 ML SYG SC SCH (08:33)
--- NOTE | 2018-08-28 10:50 | PN ---
Date/Time of Note Date/Time of Note DATE: 08/28/18 TIME: 10:35 Assessment/Plan VTE Prophylaxis Risk score (from [facility] [place] [facility])>0 risk: 3 SCD applied (from [facility] [place]): No SCD contraindicated: other Pharmacological prophylaxis: other Pharm contraindication: other Lines/Catheters IV Catheter Type (from [facility]): Peripheral IV Assessment/Plan Assessment/Plan - Possible allergic reaction, continue Claritin and Benadryl. - Episode of cardiac arrhythmia on 08/25/2018, Dr. Rodrigez is following in cardiology consultation. - Asthma exacerbation, continue Solu-Medrol and Singulair. - COPD, continue breathing treatments. - Upper respiratory infection, s/p Levaquin, on Rocephin. - Hypertension. Dr. Moreno is following in cardiology consultation. - Diabetes mellitus globin A1c 7.0. Continue Lantus and pre-meal NovoLog. - Hypothyroidism, continue Synthroid. - Dyslipidemia. Continue Lipitor. 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 Further recommendations based on clinical course. Plan of care discussed with Dr. Lin. Result Diagram: 08/26/18 0630 08/28/18 0605 Results 24hrs Laboratory Tests Test 08/27/18 12:39 08/27/18 17:39 08/27/18 20:35 08/28/18 06:05 Bedside Glucose 117 138 165 Sodium Level 135 Potassium Level 4.1 Chloride Level 96 L Carbon Dioxide Level 32 H Anion Gap 7 Blood Urea Nitrogen 28 H Creatinine 0.53 Est Glomerular > 60 Filtrat Rate mL/min Glucose Level 160 Calcium Level 9.0 Magnesium Level 2.4 Test 08/28/18 07:54 Bedside Glucose 138 Subjective 24 Hr Interval Summary Free Text/Dictation - Will get 2D echo to reassess EF - Breath sound improving- will taper sulumedrol to daily - Possible dc am on po prednisone if needed; if Echo stable Constitutional: requiring O2 Respiratory: shortness of breath Cardiovascular: no complaints Gastrointestinal: no complaints Genitourinary: no complaints Musculoskeletal: no complaints Skin: no complaints Neurologic: no complaints Psychological: nl mood/affect Immunologic: no complaints Exam/Review of Systems Exam Vitals Vital Signs Date Temp Pulse Resp B/P (MAP) Pulse Ox O2 O2 Flow FiO2 Time Delivery Rate 08/28/18 Nasal 2.0 08:20 Cannula 08/28/18 65 08:06 08/28/18 18 98 07:23 08/28/18 98.0 160/74 07:07 (102) Intake and Output 08/27/18 08/27/18 08/28/18 1414:59 22:59 06:59 IntakeIntake Total 880 ml BalanceBalance 880 ml Constitutional: alert, well developed Psych: nl mood/affect Head: normocephalic Eyes: nl lids ENMT: nl external ears & nose Neck: non-tender Respiratory: diminished breath sounds (at bases bilaterally. No wheezing ) Cardiovascular: nl pulses Gastrointestinal: soft, non-tender Musculoskeletal: nl extremities to inspection Extremities: normal pulses Neurological: nl speech, other (alert/responsive) Skin: nl turgor Lymph: nontender Results Results 24hrs Laboratory Tests Test 08/27/18 12:39 08/27/18 17:39 08/27/18 20:35 08/28/18 06:05 Bedside Glucose 117 138 165 Sodium Level 135 Potassium Level 4.1 Chloride Level 96 L Carbon Dioxide Level 32 H Anion Gap 7 Blood Urea Nitrogen 28 H Creatinine 0.53 Est Glomerular > 60 Filtrat Rate mL/min Glucose Level 160 Calcium Level 9.0 Magnesium Level 2.4 Test 08/28/18 07:54 Bedside Glucose 138 Medications Medication Current Medications Methylprednisolone Sodium Succinate (Solu-Medrol) 40 mg Q12 IV Last administered on 08/28/18at 08:00; Admin Dose 40 MG; Start 08/21/18 at 09:00 Acetaminophen (Tylenol Tab) 650 mg Q4H PRN PO MILD PAIN(1-3)OR ELEVATED TEMP Last administered on 08/21/18at 06:10; Admin Dose 650 MG; Start 08/21/18 at 00:00 Enoxaparin Sodium (Lovenox) 40 mg DAILY SC Last administered on 08/28/18at 08:33; Admin Dose 40 MG; Start 08/21/18 at 09:00 Insulin Aspart (Novolog Insulin Pen) NOVOLOG *MILD* ALGORITHM WITH MEALS BEDTIME SC Last administered on 08/26/18at 18:09; Admin Dose 2 UNIT; Start 08/21/18 at 07:55 Clopidogrel Bisulfate (plaVIX) 75 mg DAILY PO Last administered on 08/28/18at 08:02; Admin Dose 75 MG; Start 08/21/18 at 09:00 Diltiazem HCl (Cardizem Cd) 240 mg DAILY PO Last administered on 08/28/18at 08 :02; Admin Dose 240 MG; Start 08/21/18 at 09:00 Docusate Sodium (Colace) 100 mg BID PO Last administered on 08/28/18at 08:02; Admin Dose 100 MG; Start 08/21/18 at 09:00 Furosemide (Lasix) 20 mg DAILY PO Last administered on 08/28/18at 08:02; Admin Dose 20 MG; Start 08/21/18 at 09:00 Hydralazine HCl (Apresoline) 50 mg BID PO Last administered on 08/28/18at 08:01; Admin Dose 50 MG; Start 08/21/18 at 09:00 Levothyroxine Sodium (Synthroid) 75 mcg BEFORE BREAKFAST PO Last administered on 08/28/18at 06:36; Admin Dose 75 MCG; Start 08/21/18 at 07:00 Metformin HCl (Glucophage) 500 mg WITH BREAKFAST DINNE PO Last administered on 08/28/18at 07:57; Admin Dose 500 MG; Start 08/21/18 at 07:55 Montelukast Sodium (Singulair) 10 mg QHS PO Last administered on 08/27/18at 20:30; Admin Dose 10 MG; Start 08/21/18 at 21:00 Pantoprazole (Protonix Tab) 40 mg DAILY@06 PO Last administered on 08/28/18at 06:36; Admin Dose 40 MG; Start 08/21/18 at 06:00 Miscellaneous Information 1 ea NOTE XX ; Start 08/21/18 at 00:30 Glucose (Glutose) 15 gm Q15M PRN PO DECREASED GLUCOSE; Start 08/21/18 at 00:30 Glucose (Glutose) 22.5 gm Q15M PRN PO DECREASED GLUCOSE; Start 08/21/18 at 00:30 Dextrose (D50w Syringe) 25 ml Q15M PRN IV DECREASED GLUCOSE; Start 08/21/18 at 00:30 Dextrose (D50w Syringe) 50 ml Q15M PRN IV DECREASED GLUCOSE; Start 08/21/18 at 00:30 Glucagon (Glucagen) 1 mg Q15M PRN IM DECREASED GLUCOSE; Start 08/21/18 at 00:30 Glucose (Glutose) 15 gm Q15M PRN BUCCAL DECREASED GLUCOSE; Start 08/21/18 at 00:30 Albuterol/ Ipratropium (Duoneb) 3 ml Q6H RESP THERAPY HHN Last administered on 08/28/18 07:22; Admin Dose 3 ML; Start 08/21/18 at 02:00 Miscellaneous Information Patients own medicat... BID@10,16 XX ; Start 08/21/18 at 10:00 Ondansetron HCl (Zofran Inj) 4 mg Q4H PRN IV NAUSEA AND/OR VOMITING Last administered on 08/25/18 17:52; Admin Dose 4 MG; Start 08/24/18 at 07:00 Diphenhydramine HCl (Benadryl) 25 mg Q6H PRN PO ITCHING Last administered on 08/28/18 00:22; Admin Dose 25 MG; Start 08/24/18 at 07:00 Atorvastatin Calcium (Lipitor) 20 mg HS GTB Last administered on 08/27/18 20:3 0; Admin Dose 20 MG; Start 08/24/18 at 21:00 Hydralazine HCl (Apresoline) 10 mg Q6H PRN IV SBP>170 Last administered on 08/26/18 11:23; Admin Dose 10 MG; Start 08/25/18 at 00:30 Loratadine (Claritin) 10 mg DAILY PO Last administered on 08/28/18 08:02; Admin Dose 10 MG; Start 08/25/18 at 13:00 Insulin Human NPH (Humulin N) 15 unit Q12 SC Last administered on 08/28/18 08:23; Admin Dose 15 UNIT; Start 08/25/18 at 21:00 Ceftriaxone Sodium 50 ml @ 100 mls/hr Q24H IVPB Last administered on 08/27/18 16:58; Admin Dose 100 MLS/HR; Start 08/25/18 at 16:00 Empaglifozin (Jardiance) 10 mg DAILY@08 PO Last administered on 08/28/18 07:58; Admin Dose 10 MG; Start 08/26/18 at 12:00 Lisinopril (Zestril) 10 mg DAILY NGT Last administered on 08/28/18 08:01; Admin Dose 10 MG; Start 08/26/18 at 13:30 NEFTALI MARTINEZ August 28, 2018 10:47
--- NOTE | 2018-08-28 13:29 | CONS ---
Assessment/Plan Assessment/Plan Hospital Course (Demo Recall) IMP: 1.CHF-diastolic acute on chronic. EF 60-65 by echo this admit 2.sob 3.asthma 4.HTN 5.DM REcc: -Tele -Continue plavix -Uptitrate ACEI/hydralazine further -Continue diltiazem -Increase lasix diuresis -Continue steroids/bronchodilators Consultation Date/Type/Reason Admit Date/Time August 20, 2018 at 17:57 Initial Consult Date 08/25/18 Type of Consult Cardiology Reason for Consultation CHF Requesting Provider: CLAUDIA FOSTER MD Date/Time of Note DATE: 08/28/18 TIME: 13:27 Exam/Review of Systems Vital Signs Vitals Vital Signs Date Temp Pulse Resp B/P (MAP) Pulse Ox O2 O2 Flow FiO2 Time Delivery Rate 08/28/18 70 12:03 08/28/18 98.0 18 144/64 97 Nasal 11:04 (90) Cannula 08/28/18 2.0 08:20 Intake and Output 08/27/18 08/27/18 08/28/18 1414:59 22:59 06:59 IntakeIntake Total 880 ml BalanceBalance 880 ml Exam Exam Review of Systems: CONSTITUTIONAL: No fevers, chills. PULMONARY: mild sob-improving CARDIOVASCULAR: No chest pain/palpitations GASTROINTESTINAL: No nausea/vomiting. GENITOURINARY: No hematuria/dysuria. MUSCULOSKELETAL: No myagias/arthalgias. PSYCHIATRIC: The patient denies depression. NEUROLOGIC: No weakness Constitutional: alert Psych: no complaints Head: normocephalic ENMT: mucosa pink and moist Neck: supple, jvd (9 cm water) Respiratory: diminished breath sounds (at bases/B) Cardiovascular: regular rate and rhythm Gastrointestinal: soft, non-tender Musculoskeletal: muscle tone (normal) Extremities: edema (trace with chronic changes) Labs Result Diagram: 08/26/18 0630 08/28/18 0605 Results 24hrs Laboratory Tests Test 08/27/18 17:39 08/27/18 20:35 08/28/18 06:05 08/28/18 07:54 Bedside Glucose 138 165 138 Sodium Level 135 Potassium Level 4.1 Chloride Level 96 L Carbon Dioxide Level 32 H Anion Gap 7 Blood Urea Nitrogen 28 H Creatinine 0.53 Est Glomerular > 60 Filtrat Rate mL/min Glucose Level 160 Calcium Level 9.0 Magnesium Level 2.4 Test 08/28/18 12:01 Bedside Glucose 158 Medications Medications Current Medications Acetaminophen (Tylenol Tab) 650 mg Q4H PRN PO MILD PAIN(1-3)OR ELEVATED TEMP Last administered on 08/21/18 06:10; Admin Dose 650 MG; Start 08/21/18 at 00:00 Enoxaparin Sodium (Lovenox) 40 mg DAILY SC Last administered on 08/28/18 08:33; Admin Dose 40 MG; Start 08/21/18 at 09:00 Insulin Aspart (Novolog Insulin Pen) NOVOLOG *MILD* ALGORITHM WITH MEALS BEDTIME SC Last administered on 08/28/18 12:07; Admin Dose 1 UNIT; Start 08/21/18 at 07:55 Clopidogrel Bisulfate (plaVIX) 75 mg DAILY PO Last administered on 08/28/18 08:02; Admin Dose 75 MG; Start 08/21/18 at 09:00 Diltiazem HCl (Cardizem Cd) 240 mg DAILY PO Last administered on 08/28/18 08:02; Admin Dose 240 MG; Start 08/21/18 at 09:00 Docusate Sodium (Colace) 100 mg BID PO Last administered on 08/28/18 08:02; Admin Dose 100 MG; Start 08/21/18 at 09:00 Furosemide (Lasix) 20 mg DAILY PO Last administered on 08/28/18 08:02; Admin Dose 20 MG; Start 08/21/18 at 09:00 Hydralazine HCl (Apresoline) 50 mg BID PO Last administered on 08/28/18 08:01; Admin Dose 50 MG; Start 08/21/18 at 09:00 Levothyroxine Sodium (Synthroid) 75 mcg BEFORE BREAKFAST PO Last administered on 08/28/18 06:36; Admin Dose 75 MCG; Start 08/21/18 at 07:00 Metformin HCl (Glucophage) 500 mg WITH BREAKFAST DINNE PO Last administered on 08/28/18 07:57; Admin Dose 500 MG; Start 08/21/18 at 07:55 Montelukast Sodium (Singulair) 10 mg QHS PO Last administered on 08/27/18 20:30; Admin Dose 10 MG; Start 08/21/18 at 21:00 Pantoprazole (Protonix Tab) 40 mg DAILY@06 PO Last administered on 08/28/18at 06:36; Admin Dose 40 MG; Start 08/21/18 at 06:00 Miscellaneous Information 1 ea NOTE XX ; Start 08/21/18 at 00:30 Glucose (Glutose) 15 gm Q15M PRN PO DECREASED GLUCOSE; Start 08/21/18 at 00:30 Glucose (Glutose) 22.5 gm Q15M PRN PO DECREASED GLUCOSE; Start 08/21/18 at 00:30 Dextrose (D50w Syringe) 25 ml Q15M PRN IV DECREASED GLUCOSE; Start 08/21/18 at 00:30 Dextrose (D50w Syringe) 50 ml Q15M PRN IV DECREASED GLUCOSE; Start 08/21/18 at 00:30 Glucagon (Glucagen) 1 mg Q15M PRN IM DECREASED GLUCOSE; Start 08/21/18 at 00:30 Glucose (Glutose) 15 gm Q15M PRN BUCCAL DECREASED GLUCOSE; Start 08/21/18 at 00:30 Albuterol/ Ipratropium (Duoneb) 3 ml Q6H RESP THERAPY HHN Last administered on 08/28/18at 07:22; Admin Dose 3 ML; Start 08/21/18 at 02:00 Miscellaneous Information Patients own medicat... BID@ XX ; Start 08/21/18 at 10:00 Ondansetron HCl (Zofran Inj) 4 mg Q4H PRN IV NAUSEA AND/OR VOMITING Last administered on 08/25/18at 17:52; Admin Dose 4 MG; Start 08/24/18 at 07:00 Diphenhydramine HCl (Benadryl) 25 mg Q6H PRN PO ITCHING Last administered on 08/28/18at 00:22; Admin Dose 25 MG; Start 08/24/18 at 07:00 Atorvastatin Calcium (Lipitor) 20 mg HS GTB Last administered on 08/27/18at 20:30; Admin Dose 20 MG; Start 08/24/18 at 21:00 Hydralazine HCl (Apresoline) 10 mg Q6H PRN IV SBP>170 Last administered on 08/26/18at 11:23; Admin Dose 10 MG; Start 08/25/18 at 00:30 Loratadine (Claritin) 10 mg DAILY PO Last administered on 08/28/18 08:02; Admin Dose 10 MG; Start 08/25/18 at 13:00 Insulin Human NPH (Humulin N) 15 unit Q12 SC Last administered on 08/28/18at 08:23; Admin Dose 15 UNIT; Start 08/25/18 at 21:00 Ceftriaxone Sodium 50 ml @ 100 mls/hr Q24H IVPB Last administered on 08/27/18at 16:58; Admin Dose 100 MLS/HR; Start 08/25/18 at 16:00 Empaglifozin (Jardiance) 10 mg DAILY@08 PO Last administered on 08/28/18at 07:58; Admin Dose 10 MG; Start 08/26/18 at 12:00 Lisinopril (Zestril) 10 mg DAILY NGT Last administered on 08/28/18at 08:01; Admin Dose 10 MG; Start 08/26/18 at 13:30 Methylprednisolone Sodium Succinate (Solu-Medrol) 40 mg DAILY IV ; Start 08/29/18 at 09:00 JUSTIN ARCE August 28, 2018 13:29
[2018-08-28] MEDS: ONDANSETRON 4 MG INJ IV PRN (14:44)
[2018-08-28] MEDS: CEFTRIAXONE 1 GM/50 ML (PMX) 50 ML IVPB SCH (16:35)
[2018-08-28] MEDS: MONTELUKAST 10 MG TAB PO SCH (20:12)
[2018-08-28] MEDS: ATORVASTATIN 20 MG TAB GTB SCH (20:13)
[2018-08-29] VITALS (10 sets, daily range): BP systolic 117–168; BP diastolic 54–75; PULSE 55–75; RESP 18–20
[2018-08-29] MEDS: ALBUTEROL/IPRATROPIUM (NEB) 3 ML AMP HHN SCH ×4 (01:00→19:30)
[2018-08-29] MEDS: PANTOPRAZOLE (EC) 40 MG TAB PO SCH (05:46)
[2018-08-29] MEDS: FUROSEMIDE 20 MG TAB PO SCH ×2 (05:46→17:15)
[2018-08-29] MEDS: LEVOTHYROXINE 75 MCG TAB PO SCH (05:46)
[2018-08-29] MEDS: DIPHENHYDRAMINE 25 MG CAP PO PRN (06:03)
[2018-08-29] MEDS: INSULIN ASPART [NOVOLOG] 3 ML PEN SC SCH ×4 (07:55→21:00)
[2018-08-29] MEDS: DILTIAZEM (CD) 240 MG CAP PO SCH (08:21)
[2018-08-29] MEDS: CLOPIDOGREL 75 MG TAB PO SCH (08:21)
[2018-08-29] MEDS: LISINOPRIL 10 MG TAB NGT SCH ×2 (08:22→20:21)
[2018-08-29] MEDS: DOCUSATE SODIUM 100 MG CAP PO SCH ×2 (08:22→20:20)
[2018-08-29] MEDS: EMPAGLIFLOZIN 10 MG TABLET PO SCH (08:22)
[2018-08-29] MEDS: METHYLPREDNISOLONE 40 MG INJ IV SCH (08:22)
[2018-08-29] MEDS: LORATADINE 10 MG TAB PO SCH (08:22)
[2018-08-29] MEDS: NPH, HUMAN INSULIN ISOPHANE 3ML VIAL SC SCH ×2 (08:24→21:26)
[2018-08-29] MEDS: metFORMIN 500 MG TAB PO SCH ×2 (08:26→17:15)
[2018-08-29] MEDS: ENOXAPARIN 40 MG/0.4 ML SYG SC SCH (08:31)
--- NOTE | 2018-08-29 11:26 | PN ---
Date/Time of Note Date/Time of Note DATE: 08/29/18 TIME: 11:26 Assessment/Plan VTE Prophylaxis Risk score (from [facility] [place])>0 risk: 4 SCD applied (from [facility] [place]): No SCD contraindicated: other Pharmacological prophylaxis: LMWH Lines/Catheters IV Catheter Type (from [facility] [place] Assessment/Plan Hospital Course - Possible allergic reaction, continue Claritin and Benadryl. - Episode of cardiac arrhythmia on 08/25/2018, Dr. Rodrigez is following in cardiology consultation. - Asthma exacerbation, continue Solu-Medrol and Singulair. - COPD, continue breathing treatments. - Upper respiratory infection, s/p Levaquin, on Rocephin. - Hypertension. Dr. Moreno is following in cardiology consultation. - Diabetes mellitus globin A1c 7.0. Continue Lantus and pre-meal NovoLog. - Hypothyroidism, continue Synthroid. - Dyslipidemia. Continue Lipitor. 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 Result Diagram: 08/29/18 0702 08/29/18 0702 Results 24hrs Laboratory Tests Test 08/28/18 12:01 08/28/18 14:50 08/28/18 17:29 08/28/18 20:12 Bedside Glucose 158 152 132 197 Test 08/29/18 02:00 08/29/18 07:02 08/29/18 08:03 Bedside Glucose 137 77 White Blood Count 10.2 # Red Blood Count 4.70 Hemoglobin 11.5 L Hematocrit 36.0 L Mean Corpuscular 76.6 L Volume Mean Corpuscular 24.5 L Hemoglobin Mean Corpuscular 31.9 L Hemoglobin Concent Red Cell 17.3 H Distribution Width Platelet Count 358 Mean Platelet Volume 10.5 H Immature 4.100 H Granulocytes % Neutrophils % 63.9 Lymphocytes % 21.5 Monocytes % 9.6 Eosinophils % 0.6 Basophils % 0.3 Nucleated Red Blood 0.0 Cells % Immature 0.420 H Granulocytes # Neutrophils # 6.5 Lymphocytes # 2.2 Monocytes # 1.0 H Eosinophils # 0.1 Basophils # 0.0 Nucleated Red Blood 0.0 Cells # Sodium Level 135 Potassium Level 4.0 Chloride Level 96 L Carbon Dioxide Level 33 H Anion Gap 6 Blood Urea Nitrogen 30 H Creatinine 0.52 Est Glomerular > 60 Filtrat Rate mL/min Glucose Level 83 # Calcium Level 8.3 L Subjective 24 Hr Interval Summary Free Text/Dictation Patient states her breathing is much better Exam/Review of Systems Exam Vitals Vital Signs Date Temp Pulse Resp B/P (MAP) Pulse Ox O2 O2 Flow FiO2 Time Delivery Rate 08/29/18 55 08:12 08/29/18 18 98 Nasal 2.0 08:10 Cannula 08/29/18 97.8 168/75 07:11 (106) Intake and Output 08/28/18 08/28/18 08/29/18 1515:00 23:00 07:00 IntakeIntake Total 750 ml BalanceBalance 750 ml Constitutional: well developed Head: normocephalic, atraumatic Neck: supple Respiratory: diminished breath sounds Cardiovascular: regular rate and rhythm Gastrointestinal: soft, non-tender Extremities: normal pulses Results Results 24hrs Laboratory Tests Test 08/28/18 12:01 08/28/18 14:50 08/28/18 17:29 08/28/18 20:12 Bedside Glucose 158 152 132 197 Test 08/29/18 02:00 08/29/18 07:02 08/29/18 08:03 Bedside Glucose 137 77 White Blood Count 10.2 # Red Blood Count 4.70 Hemoglobin 11.5 L Hematocrit 36.0 L Mean Corpuscular 76.6 L Volume Mean Corpuscular 24.5 L Hemoglobin Mean Corpuscular 31.9 L Hemoglobin Concent Red Cell 17.3 H Distribution Width Platelet Count 358 Mean Platelet Volume 10.5 H Immature 4.100 H Granulocytes % Neutrophils % 63.9 Lymphocytes % 21.5 Monocytes % 9.6 Eosinophils % 0.6 Basophils % 0.3 Nucleated Red Blood 0.0 Cells % Immature 0.420 H Granulocytes # Neutrophils # 6.5 Lymphocytes # 2.2 Monocytes # 1.0 H Eosinophils # 0.1 Basophils # 0.0 Nucleated Red Blood 0.0 Cells # Sodium Level 135 Potassium Level 4.0 Chloride Level 96 L Carbon Dioxide Level 33 H Anion Gap 6 Blood Urea Nitrogen 30 H Creatinine 0.52 Est Glomerular > 60 Filtrat Rate mL/min Glucose Level 83 # Calcium Level 8.3 L Medications Medication Current Medications Acetaminophen (Tylenol Tab) 650 mg Q4H PRN PO MILD PAIN(1-3)OR ELEVATED TEMP Last administered on 08/21/18at 06:10; Admin Dose 650 MG; Start 08/21/18 at 00:00 Enoxaparin Sodium (Lovenox) 40 mg DAILY SC Last administered on 08/29/18 08:31; Admin Dose 40 MG; Start 08/21/18 at 09:00 Insulin Aspart (Novolog Insulin Pen) NOVOLOG *MILD* ALGORITHM WITH MEALS BEDTIME SC Last administered on 08/28/18 20:45; Admin Dose 1 UNIT; Start 08/21/18 at 07:55 Clopidogrel Bisulfate (plaVIX) 75 mg DAILY PO Last administered on 08/29/18 08:21; Admin Dose 75 MG; Start 08/21/18 at 09:00 Diltiazem HCl (Cardizem Cd) 240 mg DAILY PO Last administered on 08/29/18 08:21; Admin Dose 240 MG; Start 08/21/18 at 09:00 Docusate Sodium (Colace) 100 mg BID PO Last administered on 08/29/18 08:22; Admin Dose 100 MG; Start 08/21/18 at 09:00 Hydralazine HCl (Apresoline) 50 mg BID PO Last administered on 08/29/18 08:33; Admin Dose 50 MG; Start 08/21/18 at 09:00 Levothyroxine Sodium (Synthroid) 75 mcg BEFORE BREAKFAST PO Last administered on 08/29/18 05:46; Admin Dose 75 MCG; Start 08/21/18 at 07:00 Metformin HCl (Glucophage) 500 mg WITH BREAKFAST DINNE PO Last administered on 08/29/18 08:26; Admin Dose 500 MG; Start 08/21/18 at 07:55 Montelukast Sodium (Singulair) 10 mg QHS PO Last administered on 08/28/18 20:12; Admin Dose 10 MG; Start 08/21/18 at 21:00 Pantoprazole (Protonix Tab) 40 mg DAILY@06 PO Last administered on 08/29/18 05:46; Admin Dose 40 MG; Start 08/21/18 at 06:00 Miscellaneous Information 1 ea NOTE XX ; Start 08/21/18 at 00:30 Glucose (Glutose) 15 gm Q15M PRN PO DECREASED GLUCOSE; Start 08/21/18 at 00:30 Glucose (Glutose) 22.5 gm Q15M PRN PO DECREASED GLUCOSE; Start 08/21/18 at 00:30 Dextrose (D50w Syringe) 25 ml Q15M PRN IV DECREASED GLUCOSE; Start 08/21/18 at 00:30 Dextrose (D50w Syringe) 50 ml Q15M PRN IV DECREASED GLUCOSE; Start 08/21/18 at 00:30 Glucagon (Glucagen) 1 mg Q15M PRN IM DECREASED GLUCOSE; Start 08/21/18 at 00:30 Glucose (Glutose) 15 gm Q15M PRN BUCCAL DECREASED GLUCOSE; Start 08/21/18 at 00:30 Albuterol/ Ipratropium (Duoneb) 3 ml Q6H RESP THERAPY HHN Last administered on 08/29/18 08:00; Admin Dose 3 ML; Start 08/21/18 at 02:00 Miscellaneous Information Patients own medicat... BID@10,16 XX ; Start 08/21/18 at 10:00 Ondansetron HCl (Zofran Inj) 4 mg Q4H PRN IV NAUSEA AND/OR VOMITING Last administered on 08/28/18at 14:44; Admin Dose 4 MG; Start 08/24/18 at 07:00 Diphenhydramine HCl (Benadryl) 25 mg Q6H PRN PO ITCHING Last administered on 08/29/18at 06:03; Admin Dose 25 MG; Start 08/24/18 at 07:00 Atorvastatin Calcium (Lipitor) 20 mg HS GTB Last administered on 08/28/18at 20:13; Admin Dose 20 MG; Start 08/24/18 at 21:00 Hydralazine HCl (Apresoline) 10 mg Q6H PRN IV SBP>170 Last administered on 08/26/18at 11:23; Admin Dose 10 MG; Start 08/25/18 at 00:30 Loratadine (Claritin) 10 mg DAILY PO Last administered on 08/29/18 08:22; Admin Dose 10 MG; Start 08/25/18 at 13:00 Insulin Human NPH (Humulin N) 15 unit Q12 SC Last administered on 08/29/18 08:24; Admin Dose 15 UNIT; Start 08/25/18 at 21:00 Ceftriaxone Sodium 50 ml @ 100 mls/hr Q24H IVPB Last administered on 08/28/18at 16:35; Admin Dose 100 MLS/HR; Start 5/14/19 at 16:00 Empaglifozin (Jardiance) 10 mg DAILY@08 PO Last administered on 08/29/18 08:22; Admin Dose 10 MG; Start 08/26/18 at 12:00 Methylprednisolone Sodium Succinate (Solu-Medrol) 40 mg DAILY IV Last administered on 08/29/18 08:22; Admin Dose 40 MG; Start 08/29/18 at 09:00 Furosemide (Lasix) 20 mg BID DIURETICS PO Last administered on 08/29/18at 05:46; Admin Dose 20 MG; Start 08/28/18 at 18:00 Lisinopril (Zestril) 10 mg BID NGT Last administered on 08/29/18 08:22; Admin Dose 10 MG; Start 08/28/18 at 21:00 OLESYA LO August 29, 2018 11:26
--- NOTE | 2018-08-29 14:00 | CONS ---
Consult Date/Type/Reason Admit Date/Time August 20, 2018 at 17:57 Initial Consult Date Requesting Provider: CLAUDIA FOSTER MD Date/Time of Note DATE: 08/29/18 TIME: 13:58 Subjective NO acute events - pt comfortable - no CP - in good fluid status - still SOB with wheezing. ROS: No fever, no chills, no nausea, no vomiting, no diarrhea/constipation No recent weight changes No chest pain, no PND, no orthopnea + SOB/asthma No dizziness, blurred vision No thirst, no heat or cold intolerance Objective Vitals Vital Signs Date Temp Pulse Resp B/P (MAP) Pulse Ox O2 O2 Flow FiO2 Time Delivery Rate 08/29/18 98 Nasal 2.0 13:27 Cannula 08/29/18 72 12:00 08/29/18 98.6 158/65 11:29 (96) Intake and Output 08/28/18 08/28/18 08/29/18 1515:00 23:00 07:00 IntakeIntake Total 750 ml BalanceBalance 750 ml Exam General: WN/WD/NAD, AOx 3 HEENT: Unicetric/atraumatic/EOMI ( follows commands) NECK: JVD elevated, no thyromegaly Lymph: no lymphadenopathy HEART: regular with no S3, II/ systolic murmur at apex LUNGS: Coarse sounds, wheezing ABD: soft, NT, ND, +BS : Intact Neuro: non focal SKIN: chronic changes EXT: trace edema Results/Medications Result Diagram: 08/29/18 0702 08/29/18 0702 Results 24 hrs Laboratory Tests Test 08/28/18 14:50 08/28/18 17:29 08/28/18 20:12 08/29/18 02:00 Bedside Glucose 152 132 197 137 Test 08/29/18 07:02 08/29/18 08:03 08/29/18 12:05 White Blood Count 10.2 # Red Blood Count 4.70 Hemoglobin 11.5 L Hematocrit 36.0 L Mean Corpuscular 76.6 L Volume Mean Corpuscular 24.5 L Hemoglobin Mean Corpuscular 31.9 L Hemoglobin Concent Red Cell 17.3 H Distribution Width Platelet Count 358 Mean Platelet Volume 10.5 H Immature 4.100 H Granulocytes % Neutrophils % 63.9 Lymphocytes % 21.5 Monocytes % 9.6 Eosinophils % 0.6 Basophils % 0.3 Nucleated Red Blood 0.0 Cells % Immature 0.420 H Granulocytes # Neutrophils # 6.5 Lymphocytes # 2.2 Monocytes # 1.0 H Eosinophils # 0.1 Basophils # 0.0 Nucleated Red Blood 0.0 Cells # Sodium Level 135 Potassium Level 4.0 Chloride Level 96 L Carbon Dioxide Level 33 H Anion Gap 6 Blood Urea Nitrogen 30 H Creatinine 0.52 Est Glomerular > 60 Filtrat Rate mL/min Glucose Level 83 # Calcium Level 8.3 L Bedside Glucose 77 134 Home Meds Reported Medications Budesonide-Formoterol Fumarate* (Symbicort*) 80-4.5 Inha, 2 PUFFS INHALATION BID, #1 EACH 08/20/18 Hydralazine Hcl* (Hydralazine Hcl*) 50 Mg Tab, 50 MG PO BID, #60 TAB 08/20/18 Diltiazem Hcl* (Cardizem CD*) 240 Mg Cap.sr.24h, 240 MG PO DAILY, #30 CAP 08/20/18 Clopidogrel Bisulfate* (Clopidogrel Bisulfate*) 75 Mg Tablet, 75 MG PO DAILY, #30 TAB 08/20/18 Docusate Sodium* (Colace*) 100 Mg Capsule, 100 MG PO BID, #60 CAP 08/20/18 Ondansetron Hcl* (Zofran*) 4 Mg Tablet, 4 MG PO Q8, TAB 08/20/18 Nitroglycerin* (Nitroglycerin* SL) 0.4 Mg Tab.subl, 0.4 MG SL Q5MIN PRN for CHEST PAIN, BOTTLE 08/20/18 Furosemide* (Furosemide*) 20 Mg Tablet, 20 MG PO DAILY, #60 TAB 08/20/18 Omeprazole* (Omeprazole*) 20 Mg Capsule.dr, 20 MG PO DAILY, #30 CAP 08/20/18 Montelukast Sodium* (Montelukast Sodium*) 10 Mg Tablet, 10 MG PO QHS, #30 TAB 08/20/18 Metformin Hcl* (Metformin Hcl*) 500 Mg Tablet, 500 MG PO WITH BREAKFAST DINNE, #60 TAB 08/20/18 Levothyroxine Sodium* (Levothyroxine Sodium*) 75 Mcg Tablet, 75 MCG PO BEFORE BREAKFAST, #30 TAB 08/20/18 Medications Current Medications Acetaminophen (Tylenol Tab) 650 mg Q4H PRN PO MILD PAIN(1-3)OR ELEVATED TEMP Last administered on 08/21/18 06:10; Admin Dose 650 MG; Start 08/21/18 at 00:00 Enoxaparin Sodium (Lovenox) 40 mg DAILY SC Last administered on 08/29/18 08:31; Admin Dose 40 MG; Start 08/21/18 at 09:00 Insulin Aspart (Novolog Insulin Pen) NOVOLOG *MILD* ALGORITHM WITH MEALS BEDTIME SC Last administered on 08/28/18 20:45; Admin Dose 1 UNIT; Start 08/21/18 at 07:55 Clopidogrel Bisulfate (plaVIX) 75 mg DAILY PO Last administered on 08/29/18 08:21; Admin Dose 75 MG; Start 08/21/18 at 09:00 Diltiazem HCl (Cardizem Cd) 240 mg DAILY PO Last administered on 08/29/18 08:21; Admin Dose 240 MG; Start 08/21/18 at 09:00 Docusate Sodium (Colace) 100 mg BID PO Last administered on 08/29/18 08:22; Admin Dose 100 MG; Start 08/21/18 at 09:00 Hydralazine HCl (Apresoline) 50 mg BID PO Last administered on 08/29/18 08:33; Admin Dose 50 MG; Start 08/21/18 at 09:00 Levothyroxine Sodium (Synthroid) 75 mcg BEFORE BREAKFAST PO Last administered on 08/29/18 05:46; Admin Dose 75 MCG; Start 08/21/18 at 07:00 Metformin HCl (Glucophage) 500 mg WITH BREAKFAST DINNE PO Last administered on 08/29/18 08:26; Admin Dose 500 MG; Start 08/21/18 at 07:55 Montelukast Sodium (Singulair) 10 mg QHS PO Last administered on 08/28/18 20:12; Admin Dose 10 MG; Start 08/21/18 at 21:00 Pantoprazole (Protonix Tab) 40 mg DAILY@06 PO Last administered on 08/29/18 05:46; Admin Dose 40 MG; Start 08/21/18 at 06:00 Miscellaneous Information 1 ea NOTE XX ; Start 08/21/18 at 00:30 Glucose (Glutose) 15 gm Q15M PRN PO DECREASED GLUCOSE; Start 08/21/18 at 00:30 Glucose (Glutose) 22.5 gm Q15M PRN PO DECREASED GLUCOSE; Start 08/21/18 at 00:30 Dextrose (D50w Syringe) 25 ml Q15M PRN IV DECREASED GLUCOSE; Start 08/21/18 at 00:30 Dextrose (D50w Syringe) 50 ml Q15M PRN IV DECREASED GLUCOSE; Start 08/21/18 at 00:30 Glucagon (Glucagen) 1 mg Q15M PRN IM DECREASED GLUCOSE; Start 08/21/18 at 00:30 Glucose (Glutose) 15 gm Q15M PRN BUCCAL DECREASED GLUCOSE; Start 08/21/18 at 0 0:30 Albuterol/ Ipratropium (Duoneb) 3 ml Q6H RESP THERAPY HHN Last administered on 08/29/18at 13:18; Admin Dose 3 ML; Start 08/21/18 at 02:00 Miscellaneous Information Patients own medicat... BID@10,16 XX ; Start 08/21/18 at 10:00 Ondansetron HCl (Zofran Inj) 4 mg Q4H PRN IV NAUSEA AND/OR VOMITING Last administered on 08/28/18at 14:44; Admin Dose 4 MG; Start 08/24/18 at 07:00 Diphenhydramine HCl (Benadryl) 25 mg Q6H PRN PO ITCHING Last administered on 08/29/18at 06:03; Admin Dose 25 MG; Start 08/24/18 at 07:00 Atorvastatin Calcium (Lipitor) 20 mg HS GTB Last administered on 08/28/18at 20:13; Admin Dose 20 MG; Start 08/24/18 at 21:00 Hydralazine HCl (Apresoline) 10 mg Q6H PRN IV SBP>170 Last administered on 08/26/18at 11:23; Admin Dose 10 MG; Start 08/25/18 at 00:30 Loratadine (Claritin) 10 mg DAILY PO Last administered on 08/29/18at 08:22; Admin Dose 10 MG; Start 08/25/18 at 13:00 Insulin Human NPH (Humulin N) 15 unit Q12 SC Last administered on 08/29/18at 08:24; Admin Dose 15 UNIT; Start 08/25/18 at 21:00 Ceftriaxone Sodium 50 ml @ 100 mls/hr Q24H IVPB Last administered on 08/28/18at 16:35; Admin Dose 100 MLS/HR; Start 08/25/18 at 16:00 Empaglifozin (Jardiance) 10 mg DAILY@08 PO Last administered on 08/29/18at 08:22; Admin Dose 10 MG; Start 08/26/18 at 12:00 Methylprednisolone Sodium Succinate (Solu-Medrol) 40 mg DAILY IV Last administered on 08/29/18at 08:22; Admin Dose 40 MG; Start 08/29/18 at 09:00 Furosemide (Lasix) 20 mg BID DIURETICS PO Last administered on 08/29/18at 05:46; Admin Dose 20 MG; Start 08/28/18 at 18:00 Lisinopril (Zestril) 10 mg BID NGT Last administered on 08/29/18at 08:22; Admin Dose 10 MG; Start 08/28/18 at 21:00 Assessment/Plan Hospital Course (Demo Recall) 1.CHF-diastolic acute on chronic. EF 60-65 by echo this admit - con;t to keep euvolemic, better now 2.sob- likely with carlos enrique m- doubt CHF 3.asthma - on meds 4.HTN - on hgh side add rx now 5.DM - on meds, keep euglycemic DARWIN BOSS MD August 29, 2018 14:00
[2018-08-29] MEDS: CEFTRIAXONE 1 GM/50 ML (PMX) 50 ML IVPB SCH (15:19)
[2018-08-29] MEDS: ATORVASTATIN 20 MG TAB GTB SCH (20:21)
[2018-08-29] MEDS: MONTELUKAST 10 MG TAB PO SCH (20:21)
[2018-08-30] VITALS (11 sets, daily range): BP systolic 112–144; BP diastolic 60–71; PULSE 59–92; RESP 18–21
[2018-08-30] MEDS: ALBUTEROL/IPRATROPIUM (NEB) 3 ML AMP HHN SCH ×4 (01:44→20:29)
[2018-08-30] MEDS: ACETAMINOPHEN 325 MG TAB PO PRN (04:49)
[2018-08-30] MEDS: LEVOTHYROXINE 75 MCG TAB PO SCH (06:32)
[2018-08-30] MEDS: PANTOPRAZOLE (EC) 40 MG TAB PO SCH (06:32)
[2018-08-30] MEDS: FUROSEMIDE 20 MG TAB PO SCH ×2 (06:32→17:30)
[2018-08-30] MEDS: DIPHENHYDRAMINE 25 MG CAP PO PRN (06:41)
[2018-08-30] MEDS: INSULIN ASPART [NOVOLOG] 3 ML PEN SC SCH ×4 (07:55→21:00)
[2018-08-30] MEDS: metFORMIN 500 MG TAB PO SCH ×2 (07:55→17:30)
[2018-08-30] MEDS: CLOPIDOGREL 75 MG TAB PO SCH (08:54)
[2018-08-30] MEDS: EMPAGLIFLOZIN 10 MG TABLET PO SCH (08:54)
[2018-08-30] MEDS: LISINOPRIL 10 MG TAB NGT SCH ×2 (08:54→20:19)
[2018-08-30] MEDS: DOCUSATE SODIUM 100 MG CAP PO SCH ×2 (08:54→20:19)
[2018-08-30] MEDS: DILTIAZEM (CD) 240 MG CAP PO SCH (08:55)
[2018-08-30] MEDS: NPH, HUMAN INSULIN ISOPHANE 3ML VIAL SC SCH ×2 (08:56→21:16)
[2018-08-30] MEDS: LORATADINE 10 MG TAB PO SCH (08:57)
[2018-08-30] MEDS: METHYLPREDNISOLONE 40 MG INJ IV SCH (08:57)
[2018-08-30] MEDS: ENOXAPARIN 40 MG/0.4 ML SYG SC SCH (08:57)
--- NOTE | 2018-08-30 11:46 | PN ---
Date/Time of Note Date/Time of Note DATE: 08/30/18 TIME: 11:45 Assessment/Plan VTE Prophylaxis Risk score [place]from [facility] [place] risk: 3 SCD applied (from [facility] [place] No SCD contraindicated: other Pharmacological prophylaxis: LMWH Lines/Catheters IV Catheter Type (from [facility] [place] Assessment/Plan Hospital Course - Possible allergic reaction, continue Claritin and Benadryl. - Episode of cardiac arrhythmia on 08/25/2018, Dr. Rodrigez is following in cardiology consultation. - Asthma exacerbation, continue Solu-Medrol and Singulair. - COPD, continue breathing treatments. - Upper respiratory infection, s/p Levaquin, on Rocephin. - Hypertension. Dr. Moreno is following in cardiology consultation. - Diabetes mellitus globin A1c 7.0. Continue Lantus and pre-meal NovoLog. - Hypothyroidism, continue Synthroid. - Dyslipidemia. Continue Lipitor. 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 Result Diagram: 08/29/18 0702 08/29/18 0702 Results 24hrs Laboratory Tests Test 08/29/18 12:05 08/29/18 16:53 08/29/18 20:24 08/30/18 02:15 Bedside Glucose 134 147 169 108 Test 08/30/18 08:17 Bedside Glucose 89 Subjective 24 Hr Interval Summary Free Text/Dictation Patient is breathing better, wanting to go home. Exam/Review of Systems Exam Vitals Vital Signs Date Temp Pulse Resp B/P (MAP) Pulse Ox O2 O2 Flow FiO2 Time Delivery Rate 08/30/18 98.1 77 18 129/69 97 11:44 (89) 08/30/18 Nasal 2.0 08:30 Cannula Intake and Output 08/29/18 08/29/18 08/30/18 1414:59 22:59 06:59 IntakeIntake Total 500 ml 640 ml 400 ml BalanceBalance 500 ml 640 ml 400 ml Constitutional: well developed Head: normocephalic, atraumatic Neck: supple Respiratory: diminished breath sounds Cardiovascular: regular rate and rhythm Gastrointestinal: soft, non-tender Extremities: normal pulses Results Results 24hrs Laboratory Tests Test 08/29/18 12:05 08/29/18 16:53 08/29/18 20:24 08/30/18 02:15 Bedside Glucose 134 147 169 108 Test 08/30/18 08:17 Bedside Glucose 89 Medications Medication Current Medications Acetaminophen (Tylenol Tab) 650 mg Q4H PRN PO MILD PAIN(1-3)OR ELEVATED TEMP Last administered on 08/30/18 04:49; Admin Dose 650 MG; Start 08/21/18 at 00:00 Enoxaparin Sodium (Lovenox) 40 mg DAILY SC Last administered on 08/30/18 08:57; Admin Dose 40 MG; Start 08/21/18 at 09:00 Insulin Aspart (Novolog Insulin Pen) NOVOLOG *MILD* ALGORITHM WITH MEALS BEDTIME SC Last administered on 08/29/18 17:19; Admin Dose 1 UNIT; Start 08/21/18 at 07:55 Clopidogrel Bisulfate (plaVIX) 75 mg DAILY PO Last administered on 08/30/18 08:54; Admin Dose 75 MG; Start 08/21/18 at 09:00 Diltiazem HCl (Cardizem Cd) 240 mg DAILY PO Last administered on 08/30/18 08:55; Admin Dose 240 MG; Start 08/21/18 at 09:00 Docusate Sodium (Colace) 100 mg BID PO Last administered on 08/30/18 08:54; Admin Dose 100 MG; Start 08/21/18 at 09:00 Hydralazine HCl (Apresoline) 50 mg BID PO Last administered on 08/30/18 09:00; Admin Dose 50 MG; Start 08/21/18 at 09:00 Levothyroxine Sodium (Synthroid) 75 mcg BEFORE BREAKFAST PO Last administered on 08/30/18 06:32; Admin Dose 75 MCG; Start 08/21/18 at 07:00 Metformin HCl (Glucophage) 500 mg WITH BREAKFAST DINNE PO Last administered on 08/29/18 17:15; Admin Dose 500 MG; Start 08/21/18 at 07:55 Montelukast Sodium (Singulair) 10 mg QHS PO Last administered on 08/29/18 20:21; Admin Dose 10 MG; Start 08/21/18 at 21:00 Pantoprazole (Protonix Tab) 40 mg DAILY@06 PO Last administered on 08/30/18 06:32; Admin Dose 40 MG; Start 08/21/18 at 06:00 Miscellaneous Information 1 ea NOTE XX ; Start 08/21/18 at 00:30 Glucose (Glutose) 15 gm Q15M PRN PO DECREASED GLUCOSE; Start 08/21/18 at 00:30 Glucose (Glutose) 22.5 gm Q15M PRN PO DECREASED GLUCOSE; Start 08/21/18 at 00:30 Dextrose (D50w Syringe) 25 ml Q15M PRN IV DECREASED GLUCOSE; Start 08/21/18 at 00:30 Dextrose (D50w Syringe) 50 ml Q15M PRN IV DECREASED GLUCOSE; Start 08/21/18 at 00:30 Glucagon (Glucagen) 1 mg Q15M PRN IM DECREASED GLUCOSE; Start 08/21/18 at 00:30 Glucose (Glutose) 15 gm Q15M PRN BUCCAL DECREASED GLUCOSE; Start 08/21/18 at 00:30 Albuterol/ Ipratropium (Duoneb) 3 ml Q6H RESP THERAPY HHN Last administered on 08/30/18at 07:50; Admin Dose 3 ML; Start 08/21/18 at 02:00 Miscellaneous Information Patients own medicat... BID@10,16 XX ; Start 08/21/18 at 10:00 Ondansetron HCl (Zofran Inj) 4 mg Q4H PRN IV NAUSEA AND/OR VOMITING Last administered on 08/28/18 14:44; Admin Dose 4 MG; Start 08/24/18 at 07:00 Diphenhydramine HCl (Benadryl) 25 mg Q6H PRN PO ITCHING Last administered on 08/30/18 06:41; Admin Dose 25 MG; Start 08/24/18 at 07:00 Atorvastatin Calcium (Lipitor) 20 mg HS GTB Last administered on 08/29/18at 20:21; Admin Dose 20 MG; Start 08/24/18 at 21:00 Hydralazine HCl (Apresoline) 10 mg Q6H PRN IV SBP>170 Last administered on 08/12 11:23; Admin Dose 10 MG; Start 08/25/18 at 00:30 Loratadine (Claritin) 10 mg DAILY PO Last administered on 08/30/18 08:57; Admin Dose 10 MG; Start 08/25/18 at 13:00 Insulin Human NPH (Humulin N) 15 unit Q12 SC Last administered on 08/30/18 08:56; Admin Dose 15 UNIT; Start 08/25/18 at 21:00 Ceftriaxone Sodium 50 ml @ 100 mls/hr Q24H IVPB Last administered on 08/29/18 15:19; Admin Dose 100 MLS/HR; Start 08/25/18 at 16:00 Empaglifozin (Jardiance) 10 mg DAILY@08 PO Last administered on 08/30/18 08:54; Admin Dose 10 MG; Start 08/26/18 at 12:00 Methylprednisolone Sodium Succinate (Solu-Medrol) 40 mg DAILY IV Last administered on 08/30/18 08:57; Admin Dose 40 MG; Start 08/29/18 at 09:00 Furosemide (Lasix) 20 mg BID DIURETICS PO Last administered on 08/30/18 06:32; Admin Dose 20 MG; Start 08/28/18 at 18:00 Lisinopril (Zestril) 10 mg BID NGT Last administered on 08/30/18 08:54; Admin Dose 10 MG; Start 08/28/18 at 21:00 OLESYA LO August 30, 2018 11:46
--- NOTE | 2018-08-30 11:57 | CONS ---
Consult Date/Type/Reason Admit Date/Time August 20, 2018 at 17:57 Initial Consult Date Requesting Provider: CLAUDIA FOSTER MD Date/Time of Note DATE: 08/30/18 TIME: 11:55 Subjective NO acute events - pt stable - improved SOB - no CP noted. ROS: No fever, no chills, no nausea, no vomiting, no diarrhea/constipation No recent weight changes No chest pain, no PND, no orthopnea = SOB/mild wheezing No dizziness, blurred vision No thirst, no heat or cold intolerance Objective Vitals Vital Signs Date Temp Pulse Resp B/P (MAP) Pulse Ox O2 O2 Flow FiO2 Time Delivery Rate 08/30/18 98.1 77 18 129/69 97 11:44 (89) 08/30/18 Nasal 2.0 08:30 Cannula Intake and Output 08/29/18 08/29/18 08/30/18 1515:00 23:00 07:00 IntakeIntake Total 500 ml 640 ml 400 ml BalanceBalance 500 ml 640 ml 400 ml Exam General: WN/WD/NAD, AOx 3 [place] HEENT: Unicetric/atraumatic/EOMI (follow commands) NECK: JVD elevated, no thyromegaly Lymph: no lymphadenopathy HEART: regular with no S3, II/ systolic murmur at apex LUNGS: Coarse sounds, wheezing ABD: soft, NT, ND, +BS : Intact Neuro: non focal SKIN: chronic changes EXT: trace edema Results/Medications Result Diagram: 08/29/18 0702 08/29/18 0702 Results 24 hrs Laboratory Tests Test 08/29/18 12:05 08/29/18 16:53 08/29/18 20:24 08/30/18 02:15 Bedside Glucose 134 147 169 108 Test 08/30/18 08:17 Bedside Glucose 89 Home Meds Reported Medications Budesonide-Formoterol Fumarate* (Symbicort*) 80-4.5 Inha, 2 PUFFS INHALATION BID, #1 EACH 08/20/18 Hydralazine Hcl* (Hydralazine Hcl*) 50 Mg Tab, 50 MG PO BID, #60 TAB 08/20/18 Diltiazem Hcl* (Cardizem CD*) 240 Mg Cap.sr.24h, 240 MG PO DAILY, #30 CAP 08/20/18 Clopidogrel Bisulfate* (Clopidogrel Bisulfate*) 75 Mg Tablet, 75 MG PO DAILY, #30 TAB 08/20/18 Docusate Sodium* (Colace*) 100 Mg Capsule, 100 MG PO BID, #60 CAP 08/20/18 Ondansetron Hcl* (Zofran*) 4 Mg Tablet, 4 MG PO Q8, TAB 08/20/18 Nitroglycerin* (Nitroglycerin* SL) 0.4 Mg Tab.subl, 0.4 MG SL Q5MIN PRN for CHEST PAIN, BOTTLE 08/20/18 Furosemide* (Furosemide*) 20 Mg Tablet, 20 MG PO DAILY, #60 TAB 08/20/18 Omeprazole* (Omeprazole*) 20 Mg Capsule.dr, 20 MG PO DAILY, #30 CAP 08/20/18 Montelukast Sodium* (Montelukast Sodium*) 10 Mg Tablet, 10 MG PO QHS, #30 TAB 08/20/18 Metformin Hcl* (Metformin Hcl*) 500 Mg Tablet, 500 MG PO WITH BREAKFAST DINNE, #60 TAB 08/20/18 Levothyroxine Sodium* (Levothyroxine Sodium*) 75 Mcg Tablet, 75 MCG PO BEFORE BREAKFAST, #30 TAB 08/20/18 Medications Current Medications Acetaminophen (Tylenol Tab) 650 mg Q4H PRN PO MILD PAIN(1-3)OR ELEVATED TEMP Last administered on 08/30/18at 04:49; Admin Dose 650 MG; Start 08/21/18 at 00:00 Enoxaparin Sodium (Lovenox) 40 mg DAILY SC Last administered on 08/30/18at 08:57; Admin Dose 40 MG; Start 08/21/18 at 09:00 Insulin Aspart (Novolog Insulin Pen) NOVOLOG *MILD* ALGORITHM WITH MEALS BEDTIME SC Last administered on 08/29/18at 17:19; Admin Dose 1 UNIT; Start 08/21/18 at 07:55 Clopidogrel Bisulfate (plaVIX) 75 mg DAILY PO Last administered on 08/30/18at 08:54; Admin Dose 75 MG; Start 08/21/18 at 09:00 Diltiazem HCl (Cardizem Cd) 240 mg DAILY PO Last administered on 08/30/18at 08:55; Admin Dose 240 MG; Start 08/21/18 at 09:00 Docusate Sodium (Colace) 100 mg BID PO Last administered on 08/30/18 08:54; Admin Dose 100 MG; Start 08/21/18 at 09:00 Hydralazine HCl (Apresoline) 50 mg BID PO Last administered on 08/30/18 09:00; Admin Dose 50 MG; Start 08/21/18 at 09:00 Levothyroxine Sodium (Synthroid) 75 mcg BEFORE BREAKFAST PO Last administered on 08/30/18 06:32; Admin Dose 75 MCG; Start 08/21/18 at 07:00 Metformin HCl (Glucophage) 500 mg WITH BREAKFAST DINNE PO Last administered on 08/29/18 17:15; Admin Dose 500 MG; Start 08/21/18 at 07:55 Montelukast Sodium (Singulair) 10 mg QHS PO Last administered on 08/29/18 20:2 1; Admin Dose 10 MG; Start 08/21/18 at 21:00 Pantoprazole (Protonix Tab) 40 mg DAILY@06 PO Last administered on 08/30/18 06:32; Admin Dose 40 MG; Start 08/21/18 at 06:00 Miscellaneous Information 1 ea NOTE XX ; Start 08/21/18 at 00:30 Glucose (Glutose) 15 gm Q15M PRN PO DECREASED GLUCOSE; Start 08/21/18 at 00:30 Glucose (Glutose) 22.5 gm Q15M PRN PO DECREASED GLUCOSE; Start 08/21/18 at 00:30 Dextrose (D50w Syringe) 25 ml Q15M PRN IV DECREASED GLUCOSE; Start 08/21/18 at 00:30 Dextrose (D50w Syringe) 50 ml Q15M PRN IV DECREASED GLUCOSE; Start 08/21/18 at 00:30 Glucagon (Glucagen) 1 mg Q15M PRN IM DECREASED GLUCOSE; Start 08/21/18 at 00:30 Glucose (Glutose) 15 gm Q15M PRN BUCCAL DECREASED GLUCOSE; Start 08/21/18 at 00:30 Albuterol/ Ipratropium (Duoneb) 3 ml Q6H RESP THERAPY HHN Last administered on 08/30/18at 07:50; Admin Dose 3 ML; Start 08/21/18 at 02:00 Miscellaneous Information Patients own medicat... BID@10,16 XX ; Start 08/21/18 at 10:00 Ondansetron HCl (Zofran Inj) 4 mg Q4H PRN IV NAUSEA AND/OR VOMITING Last administered on 08/28/18 14:44; Admin Dose 4 MG; Start 08/24/18 at 07:00 Diphenhydramine HCl (Benadryl) 25 mg Q6H PRN PO ITCHING Last administered on 08/30/18 06:41; Admin Dose 25 MG; Start 08/24/18 at 07:00 Atorvastatin Calcium (Lipitor) 20 mg HS GTB Last administered on 08/29/18 20:21; Admin Dose 20 MG; Start 08/24/18 at 21:00 Hydralazine HCl (Apresoline) 10 mg Q6H PRN IV SBP>170 Last administered on 08/26/18 11:23; Admin Dose 10 MG; Start 08/25/18 at 00:30 Loratadine (Claritin) 10 mg DAILY PO Last administered on 08/30/18 08:57; Admin Dose 10 MG; Start 08/25/18 at 13:00 Insulin Human NPH (Humulin N) 15 unit Q12 SC Last administered on 08/30/18 08:56; Admin Dose 15 UNIT; Start 08/25/18 at 21:00 Ceftriaxone Sodium 50 ml @ 100 mls/hr Q24H IVPB Last administered on 08/29/18 15:19; Admin Dose 100 MLS/HR; Start 08/25/18 at 16:00 Empaglifozin (Jardiance) 10 mg DAILY@08 PO Last administered on 08/30/18 08:54; Admin Dose 10 MG; Start 08/26/18 at 12:00 Methylprednisolone Sodium Succinate (Solu-Medrol) 40 mg DAILY IV Last administered on 08/30/18 08:57; Admin Dose 40 MG; Start 08/29/18 at 09:00 Furosemide (Lasix) 20 mg BID DIURETICS PO Last administered on 08/30/18 06:32; Admin Dose 20 MG; Start 08/28/18 at 18:00 Lisinopril (Zestril) 10 mg BID NGT Last administered on 08/30/18 08:54; Admin Dose 10 MG; Start 08/28/18 at 21:00 Assessment/Plan Hospital Course (Demo Recall) 1.CHF-diastolic acute on chronic. EF 60-65 by echo this admit - con;t to keep euvolemic, better now - in good fluid status now 2.sob- likely with carlos enrique m- doubt CHF - improved 3.asthma - on meds 4.HTN - on hgh side add rx now - BP better controlled now 5.DM - on meds, keep euglycemic - treated DARWIN BOSS MD August 30, 2018 11:57
[2018-08-30] MEDS: CEFTRIAXONE 1 GM/50 ML (PMX) 50 ML IVPB SCH (16:17)
[2018-08-30] MEDS: ATORVASTATIN 20 MG TAB GTB SCH (20:19)
[2018-08-30] MEDS: MONTELUKAST 10 MG TAB PO SCH (20:19)
[2018-08-31] VITALS (9 sets, daily range): BP systolic 118–149; BP diastolic 56–66; PULSE 58–73; RESP 18–20
[2018-08-31] MEDS: ALBUTEROL/IPRATROPIUM (NEB) 3 ML AMP HHN SCH ×3 (01:35→13:00)
[2018-08-31] MEDS: LEVOTHYROXINE 75 MCG TAB PO SCH (06:08)
[2018-08-31] MEDS: PANTOPRAZOLE (EC) 40 MG TAB PO SCH (06:08)
[2018-08-31] MEDS: FUROSEMIDE 20 MG TAB PO SCH (06:08)
[2018-08-31] MEDS: INSULIN ASPART [NOVOLOG] 3 ML PEN SC SCH ×2 (07:49→11:50)
[2018-08-31] MEDS: METHYLPREDNISOLONE 40 MG INJ IV SCH (08:37)
[2018-08-31] MEDS: DOCUSATE SODIUM 100 MG CAP PO SCH (08:37)
[2018-08-31] MEDS: LORATADINE 10 MG TAB PO SCH (08:37)
[2018-08-31] MEDS: CLOPIDOGREL 75 MG TAB PO SCH (08:37)
[2018-08-31] MEDS: EMPAGLIFLOZIN 10 MG TABLET PO SCH (08:38)
[2018-08-31] MEDS: LISINOPRIL 10 MG TAB NGT SCH (08:38)
[2018-08-31] MEDS: DILTIAZEM (CD) 240 MG CAP PO SCH (08:38)
[2018-08-31] MEDS: ENOXAPARIN 40 MG/0.4 ML SYG SC SCH (08:40)
[2018-08-31] MEDS: metFORMIN 500 MG TAB PO SCH (08:42)
[2018-08-31] MEDS: NPH, HUMAN INSULIN ISOPHANE 3ML VIAL SC SCH (08:43)
--- NOTE | 2018-08-31 11:57 | CONS ---
Assessment/Plan Assessment/Plan Hospital Course (Demo Recall) IMP: 1.CHF-diastolic acute on chronic. EF 60-65 by echo this admit 2.sob 3.asthma 4.HTN 5.DM REcc: -Tele -Continue plavix -Uptitrate ACEI/hydralazine further -Continue diltiazem -Increase lasix diuresis -Continue steroids/bronchodilators Consultation Date/Type/Reason Admit Date/Time August 20, 2018 at 17:57 Initial Consult Date 08/25/18 Type of Consult Cardiology Reason for Consultation CHF Requesting Provider: CLAUDIA FOSTER MD Date/Time of Note DATE: 08/31/18 TIME: 11:55 Exam/Review of Systems Vital Signs Vitals Vital Signs Date Temp Pulse Resp B/P (MAP) Pulse Ox O2 O2 Flow FiO2 Time Delivery Rate 08/31/18 97.9 72 18 118/59 96 11:38 (78) 08/31/18 Nasal 2.0 08:54 Cannula Intake and Output 08/30/18 08/30/18 08/31/18 1414:59 22:59 06:59 IntakeIntake Total 500 ml 300 ml BalanceBalance 500 ml 300 ml Exam Exam Review of Systems: CONSTITUTIONAL: No fevers, chills. PULMONARY: No sob CARDIOVASCULAR: No chest pain/palpitations GASTROINTESTINAL: No nausea/vomiting. GENITOURINARY: No hematuria/dysuria. MUSCULOSKELETAL: No myagias/arthalgias. PSYCHIATRIC: The patient denies depression. NEUROLOGIC: No weakness Constitutional: alert Psych: no complaints Head: normocephalic ENMT: mucosa pink and moist Neck: supple, jvd (9 cm water) Respiratory: diminished breath sounds Cardiovascular: regular rate and rhythm Gastrointestinal: soft, non-tender Musculoskeletal: muscle tone (normal) Extremities: edema (trace with chronicv chnages) Neurological: other (No focal deficits) Labs Result Diagram: 08/29/18 0702 08/29/18 0702 Results 24hrs Laboratory Tests Test 08/30/18 12:00 08/30/18 17:29 08/30/18 20:18 08/31/18 07:48 Bedside Glucose 167 197 156 94 Medications Medications Current Medications Acetaminophen (Tylenol Tab) 650 mg Q4H PRN PO MILD PAIN(1-3)OR ELEVATED TEMP Last administered on 5/19/19at 04:49; Admin Dose 650 MG; Start 08/21/18 at 00:00 Enoxaparin Sodium (Lovenox) 40 mg DAILY SC Last administered on 08/31/18 0 8:40; Admin Dose 40 MG; Start 08/21/18 at 09:00 Insulin Aspart (Novolog Insulin Pen) NOVOLOG *MILD* ALGORITHM WITH MEALS BEDTIME SC Last administered on 08/30/18 17:34; Admin Dose 2 UNIT; Start 01/30 at 07:55 Clopidogrel Bisulfate (plaVIX) 75 mg DAILY PO Last administered on 08/31/18 08:37; Admin Dose 75 MG; Start 08/21/18 at 09:00 Diltiazem HCl (Cardizem Cd) 240 mg DAILY PO Last administered on 08/31/18 08:38; Admin Dose 240 MG; Start 08/21/18 at 09:00 Docusate Sodium (Colace) 100 mg BID PO Last administered on 08/31/18 08:37; Admin Dose 100 MG; Start 08/21/18 at 09:00 Hydralazine HCl (Apresoline) 50 mg BID PO Last administered on 08/31/18 08:38; Admin Dose 50 MG; Start 08/21/18 at 09:00 Levothyroxine Sodium (Synthroid) 75 mcg BEFORE BREAKFAST PO Last administered on 08/31/18 06:08; Admin Dose 75 MCG; Start 08/21/18 at 07:00 Metformin HCl (Glucophage) 500 mg WITH BREAKFAST DINNE PO Last administered on 08/31/18 08:42; Admin Dose 500 MG; Start 08/21/18 at 07:55 Montelukast Sodium (Singulair) 10 mg QHS PO Last administered on 08/30/18 20:19; Admin Dose 10 MG; Start 08/21/18 at 21:00 Pantoprazole (Protonix Tab) 40 mg DAILY@06 PO Last administered on 08/31/18 0 6:08; Admin Dose 40 MG; Start 08/21/18 at 06:00 Miscellaneous Information 1 ea NOTE XX ; Start 08/21/18 at 00:30 Glucose (Glutose) 15 gm Q15M PRN PO DECREASED GLUCOSE; Start 08/21/18 at 00:30 Glucose (Glutose) 22.5 gm Q15M PRN PO DECREASED GLUCOSE; Start 08/21/18 at 00:30 Dextrose (D50w Syringe) 25 ml Q15M PRN IV DECREASED GLUCOSE; Start 08/21/18 at 00:30 Dextrose (D50w Syringe) 50 ml Q15M PRN IV DECREASED GLUCOSE; Start 08/21/18 at 00:30 Glucagon (Glucagen) 1 mg Q15M PRN IM DECREASED GLUCOSE; Start 08/21/18 at 00:30 Glucose (Glutose) 15 gm Q15M PRN BUCCAL DECREASED GLUCOSE; Start 08/21/18 at 00:30 Albuterol/ Ipratropium (Duoneb) 3 ml Q6H RESP THERAPY HHN Last administered on 08/31/18 07:27; Admin Dose 3 ML; Start 08/21/18 at 02:00 Miscellaneous Information Patients own medicat... BID@10,16 XX ; Start 08/21/18 at 10:00 Ondansetron HCl (Zofran Inj) 4 mg Q4H PRN IV NAUSEA AND/OR VOMITING Last administered on 08/28/18 14:44; Admin Dose 4 MG; Start 08/24/18 at 07:00 Diphenhydramine HCl (Benadryl) 25 mg Q6H PRN PO ITCHING Last administered on 08/30/18 06:41; Admin Dose 25 MG; Start 08/24/18 at 07:00 Atorvastatin Calcium (Lipitor) 20 mg HS GTB Last administered on 08/30/18 20:19; Admin Dose 20 MG; Start 08/24/18 at 21:00 Hydralazine HCl (Apresoline) 10 mg Q6H PRN IV SBP>170 Last administered on 08/26/18at 11:23; Admin Dose 10 MG; Start 08/25/18 at 00:30 Loratadine (Claritin) 10 mg DAILY PO Last administered on 08/31/18 08:37; Admin Dose 10 MG; Start 08/25/18 at 13:00 Insulin Human NPH (Humulin N) 15 unit Q12 SC Last administered on 08/31/18 08:43; Admin Dose 15 UNIT; Start 08/25/18 at 21:00 Ceftriaxone Sodium 50 ml @ 100 mls/hr Q24H IVPB Last administered on 08/30/18 16:17; Admin Dose 100 MLS/HR; Start 08/25/18 at 16:00 Empaglifozin (Jardiance) 10 mg DAILY@08 PO Last administered on 08/31/18at 08:38; Admin Dose 10 MG; Start 08/26/18 at 12:00 Methylprednisolone Sodium Succinate (Solu-Medrol) 40 mg DAILY IV Last administered on 08/31/18at 08:37; Admin Dose 40 MG; Start 08/29/18 at 09:00 Furosemide (Lasix) 20 mg BID DIURETICS PO Last administered on 08/31/18at 06:08; Admin Dose 20 MG; Start 08/28/18 at 18:00 Lisinopril (Zestril) 10 mg BID NGT Last administered on 08/31/18 08:38; Admin Dose 10 MG; Start 08/28/18 at 21:00 JUSTIN ARCE August 31, 2018 11:57
[2018-08-31] MEDS ORDERED: MED4DP PO (13:45)
[2018-08-31] MEDS ORDERED: NPH,100V SC (13:45)
[2018-08-31] MEDS ORDERED: LISI10TA2 PO (13:45)
[2018-08-31] MEDS ORDERED: EMPA10TA PO (13:45)
[2018-08-31] MEDS ORDERED: ATOR20TA65 PO (13:45)
[2018-08-31] MEDS: CEFTRIAXONE 1 GM/50 ML (PMX) 50 ML IVPB SCH (16:00)
--- NOTE | 2018-09-03 22:56 | DS ---
Date/Time of Note Date/Time of Note DATE: 09/03/18 TIME: 22:54 Discharge Summary Admission/Discharge Info Admit Date/Time August 20, 2018 at 17:57 Discharge Date/Time August 31, 2018 at 16:40 Patient Condition: Stable Hx of Present Illness This is a very pleasant 68-year-old female with a past medical history of hypertension diabetes asthma on home oxygen usually required on a nightly basis only, who presents to the emergency department complaining roughly 24 hours of diffuse myalgias. The patient had a tactile fever with shaking chills. She states her dyspnea has significantly worsened where she is needed oxygen for the past 24 hours continuously. She is on 2 L nasal cannula. She is felt very nauseous but has not experienced any emesis. She complains of frequency urgency and dysuria. She denies any abdominal pain. She did not take any antipyretics. She is had no recent sick contacts or hospitalizations. The patient's past surgical history includes a hysterectomy, colon resection with colostomy reversal and right breast lumpectomy. The patient went to an urgent care clinic today and was immediately instructed to come to the emergency department for further evaluation. In March 2017 the patient had been admitted to [facility] for a suspected TIA. 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 She was seen by vascular surgery at that time. The patient does indicate that she had a bandlike headache since the onset of her symptoms. She states this is not the worst headache of her life. She has never required intubation in the past for asthma. She did not utilize her inhaler prior to arrival. Hospital Course - Possible allergic reaction, continue Claritin and Benadryl. - Episode of cardiac arrhythmia on 08/25/2018, Dr. Rodrigez is following in ca rdiology consultation. - Asthma exacerbation, continue Solu-Medrol and Singulair. - COPD, continue breathing treatments. - Upper respiratory infection, s/p Levaquin, on Rocephin. - Hypertension. Dr. Moreno is following in cardiology consultation. - Diabetes mellitus globin A1c 7.0. Continue Lantus and pre-meal NovoLog. - Hypothyroidism, continue Synthroid. - Dyslipidemia. Continue Lipitor. 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 Plan of care discussed with Dr. Lin. Home Meds Active Scripts Insulin NPH Human Isophane (Humulin N) 100 Unit/1 Ml Vial, 15 UNIT SC Q12 for 30 Days, VIAL Prov:ANA MARIA JOSHI 08/31/18 Empagliflozin (Jardiance) 10 Mg Tablet, 10 MG PO DAILY@08 for 30 Days, TAB Prov:ANA MARIA JOSHI 08/31/18 Lisinopril* (Lisinopril*) 10 Mg Tablet, 10 MG PO BID for 30 Days, TAB Prov:ANA MARIA JOSHI 08/31/18 Atorvastatin Calcium (Atorvastatin Calcium) 20 Mg Tablet, 20 MG PO HS for 30 Days, TAB Prov:ANA MARIA JOSHI 08/31/18 Reported Medications Budesonide-Formoterol Fumarate* (Symbicort*) 80-4.5 Inha, 2 PUFFS INHALATION BID, #1 EACH 08/20/18 Hydralazine Hcl* (Hydralazine Hcl*) 50 Mg Tab, 50 MG PO BID, #60 TAB 08/20/18 Diltiazem Hcl* (Cardizem CD*) 240 Mg Cap.sr.24h, 240 MG PO DAILY, #30 CAP 08/20/18 Clopidogrel Bisulfate* (Clopidogrel Bisulfate*) 75 Mg Tablet, 75 MG PO DAILY, #30 TAB 08/20/18 Docusate Sodium* (Colace*) 100 Mg Capsule, 100 MG PO BID, #60 CAP 08/20/18 Ondansetron Hcl* (Zofran*) 4 Mg Tablet, 4 MG PO Q8, TAB 08/20/18 Nitroglycerin* (Nitroglycerin* SL) 0.4 Mg Tab.subl, 0.4 MG SL Q5MIN PRN for CHEST PAIN, BOTTLE 08/20/18 Furosemide* (Furosemide*) 20 Mg Tablet, 20 MG PO DAILY, #60 TAB 08/20/18 Omeprazole* (Omeprazole*) 20 Mg Capsule.dr, 20 MG PO DAILY, #30 CAP 08/20/18 Montelukast Sodium* (Montelukast Sodium*) 10 Mg Tablet, 10 MG PO QHS, #30 TAB 08/20/18 Metformin Hcl* (Metformin Hcl*) 500 Mg Tablet, 500 MG PO WITH BREAKFAST DINNE, #60 TAB 08/20/18 Levothyroxine Sodium* (Levothyroxine Sodium*) 75 Mcg Tablet, 75 MCG PO BEFORE BREAKFAST, #30 TAB 08/20/18 Follow-up Plan d/c after PT clearance, case management to arrange to continue home oxygen and home health RN and PT prior to discharge, follow-up with PMD in 2 weeks. Primary Care Provider Not On Staff Doctor Time spent on discharge: > 30 minutes ANA MARIA JOSHI September 03, 2018 22:56
== END 2018-08-31 16:40 | disposition home health service (06) | DRG 202 ==
LOC: E/R 13:15 → TEL 17:57 → EDBEDREQ 18:14 → TEL 08-25 17:43
PROVIDERS: ADMIT Internal Medicine; ATTEND Internal Medicine
PROC: 5A09357 Assistance with Respiratory Ventilation, Less than 24 Consecutive Hours, Continuous Positive Airway Pressure (ICD-10-PCS; principal; 2018-08-20)
DX: J45.901 Unspecified asthma with (acute) exacerbation (principal); I50.33 Acute on chronic diastolic (congestive) heart failure; L97.229 Non-pressure chronic ulcer of left calf with unspecified severity; I11.0 Hypertensive heart disease with heart failure; I49.9 Cardiac arrhythmia, unspecified; J44.9 Chronic obstructive pulmonary disease, unspecified; J06.9 Acute upper respiratory infection, unspecified; E11.65 Type 2 diabetes mellitus with hyperglycemia; E78.5 Hyperlipidemia, unspecified; E03.9 Hypothyroidism, unspecified; I65.21 Occlusion and stenosis of right carotid artery; I67.2 Cerebral atherosclerosis; R51 Headache; T78.49XA Other allergy, initial encounter; X58.XXXA Exposure to other specified factors, initial encounter; Z88.0 Allergy status to penicillin; Z88.8 Allergy status to other drugs, medicaments and biological substances; Z99.81 Dependence on supplemental oxygen; Z79.4 Long term (current) use of insulin; Z79.82 Long term (current) use of aspirin; Z79.02 Long term (current) use of antithrombotics/antiplatelets
CPT/HCPCS: 36415; 36600; 71045; 80048; 80053; 80076; 81003; 82803; 82962; 83036; 83605; 83735; 83880; 84484; 85025; 85610; 85730; 87086; 87400; 93005; 93306; 94640; 94644; 94660; 94664; 96374; 96375; 97161; J0360; J0696; J1650; J1815; J1956; J2405; J2920; J3370; J7030